=== PATIENT | male | born 1950 | race Caucasian/White ===

== ENCOUNTER → 2019-12-02 | Outpatient (CLI) | payer MEDICARE, SELFPAY ==
[2019-12-02 08:22] VITALS: BMI 30.4
[2019-12-02 12:42] LABS: Absolute Lymphocyte Count 1.74 X10^3/uL (0.83-4.51); Absolute Neutrophil Count 3.3 X10^3/uL (2.0-7.7); Basophil# 0.08 X10^3/uL; Basophil% 1.3 % (0-1); Eosinophil# 0.31 X10^3/uL; Eosinophils% 5.2 % (0-5); Hematocrit 47.6 % (40-54); Hemoglobin 16.7 g/dL (13.0-16.5); Lymphocyte # 1.74 X10^3/ul (4.0); Lymphocyte % 29.3 % (19-41); Mean Corp Hgb Conc 35.1 g/dL (32-36); Mean Corpuscular Hgb 29.4 pg (27.0-32.0); Mean Corpuscular Volume 83.8 fL (80-94); Mean Platelet Vol. 9.8 fl (6.2-12.0); Monocyte% 8.4 % (0-10); NRBC Flagged by Analyzer 0 % (0-5); Neutrophil # 3.28 X10^3/uL (2.7-7.7); Neutrophil % 55.5 % (47-70); Platelet Count 207 K/mm3 (150-450); RBC Distribution Width CV 12.2 % (11.6-14.6); RBC Distribution Width SD 37.2 fl (35.1-43.9); Red Blood Count 5.68 M/mm3 (4.6-6.2); White Blood Count 5.9 K/mm3 (4.4-11.0)
[2019-12-02 13:15] LABS: ALB/GLOB Ratio 1.3 RATIO (0.9-2.4); AST(SGOT) 20 U/L (15-37); Alanine Aminotransfer ALT/SGPT 25 U/L (16-61); Albumin, Serum 4.4 g/dL (3.2-5.0); Alkaline Phosphatase 60 U/L (45-117); Anion Gap 7 (5-15); BUN 15 mg/dL (7-18); BUN/Creat Ratio 18.3 RATIO (10-20); Calcium,Total 9.1 mg/dL (8.5-10.1); Chloride 105 mmol/L (98-107); Cholesterol 189 mg/dL (200); Creatinine, Serum 0.82 mg/dL (0.70-1.30); EST Glomerular Filtration Rate 100 mL/min (>60); Est Glom Filt Rate - Afr Amer 121 mL/min (>60); Globulin 3.5 g/dL (2.2-4.2); Glucose 95 mg/dL (74-106); High Density Lipoprotein 38 mg/dL; Potassium 3.8 mmol/L (3.5-5.1); Protein, Total 7.9 g/dL (6.4-8.2); Sodium Level 140 mmol/L (136-145); Triglycerides 81 mg/dL; Very Low Density Lipoprotein 16 mg/dL (5-40)
== END | disposition home or self-care (01) ==
LOC: BIMLAB 09:36
PROVIDERS: PCP Internal Medicine; Referring Provider Internal Medicine; Visit Provider Internal Medicine
DX: I10 Essential (primary) hypertension (principal)
CPT/HCPCS: 36415; 80053; 80061; 85025

== ENCOUNTER 2020-03-25 19:17 | Emergency (ER) | payer MEDICARE, SELFPAY ==
[2019-12-02 08:22] VITALS: BMI 30.4
[2020-03-25 19:18] VITALS: BP 169/103; PULSE 87; RESP 16; TEMP 36.3; O2SAT 97; BMI 30.1
[2020-03-25 19:34] VITALS: BP 178/83; PULSE 77; RESP 16; O2SAT 95
--- NOTE | 2020-03-25 20:29 | ED.VIS.GEN ---
History of Present Illness Chief Complaint: Hypertension Informant: Patient Narrative: 69-year-old male presents for evaluation of hypertension. Patient states that he got up today with his normal routine. He states that his body felt like it was under pressure. He took his blood pressure pills and his blood pressure is elevated. A couple hours later is even more elevated. He tells me that the past couple nights he has had grandchildren over. Last night he had pepperoni pizza on tortillas, sauerkraut, mashed potatoes, processed turkey sandwich, and other foods. He states that it is a bit out of ordinary for him to eat as salty foods. He states he takes hydrochlorothiazide, amlodipine, and lisinopril for hypertension. He is a patient of Dr. Miller's. He denies any chest pain, neurologic symptoms, dyspnea. - Past Medical History (1) Hypertension Status: Chronic (2) Arthritis Status: Chronic (3) GERD (gastroesophageal reflux disease) Status: Chronic Past Medical History - Allergies and Home Meds Allergies/Adverse Reactions: Allergies No Known Allergies Allergy (Verified 03/25/20 19:20) Primary Care Physician: Jaky Cheng MD [Primary Care Provider] - 3-5 Days if not improving Surgical History: no surgical history Lives: Spouse/ Significant Other Smoking Status: Never smoker Drugs: None Physical Exam Vital Signs/Narrative: Vital Signs Temp Pulse Resp BP Pulse Ox 03/25/20 19:34 77 16 178/83 H 95 03/25/20 19:18 97.4 F L 87 16 169/103 H 97 Inital Vital Signs reviewed: Yes General: Well nourished, Well developed, No Acute Distress Head: Normocephalic, Atraumatic Eyes: Perrl, EOMI ENT: Moist mucous membranes, No rhinorrhea Neck: Supple, Nontender Cardiovascular: Regular rate, Regular rhythm, No murmurs Respiratory: No distress, CTA bilaterally, Chest nontender Abdomen: Soft, Nontender, Nondistended, Normal bowel sounds Back: Nontender, Normal Inspection Extremities: Nontender, No edema Skin: Normal color, No rash Neurological: Alert, Oriented x3, Cranial nerves II-XII grossly intact, Normal Strength, Normal Sensation Psychological: Normal affect, Normal Mood Diagnostic/Tx/Re-eval - Medical Decision Making Mannual blood pressure is 165/89 Advised the patient he could take either an extra dose of his hydrochlorothiazide tonight or 1/2 of his amlodipine. The downside to hydrochlorothiazide is that he would probably urinate more during the night. I suspect that this is a transient hypotension most likely due to the increased salt in his diet over the past couple days. I do not believe he needs admission or emergent reduction of his pressure. ED Disposition - Plan for ED Patient: Disposition: Home or Assisted Living Diagnosis: Hypertension Instructions: ED Hypertension, Established, ED High Blood Pressure ... Referrals: Jaky Cheng MD [Primary Care Provider] - 3-5 Days if not improving
[2020-03-25 20:40] VITALS: BP 165/89; PULSE 68; RESP 16
== END 2020-03-25 20:41 | disposition home or self-care (01) ==
PROVIDERS: Emergency Provider Emergency Medicine; PCP Internal Medicine
DX: I10 Essential (primary) hypertension (principal); K21.9 Gastro-esophageal reflux disease without esophagitis; M19.90 Unspecified osteoarthritis, unspecified site; Z79.899 Other long term (current) drug therapy
CPT/HCPCS: 99282

== ENCOUNTER → 2020-05-22 09:45 | Outpatient (CLI) | payer MEDICARE, SELFPAY ==
[2020-05-20 08:50] VITALS: BMI 29.8
--- NOTE | 2020-05-22 09:48 | RAD_ITS ---
STUDY: X-RAY - UNILATERAL RIBS ( LEFT ) WITH CHEST REASON FOR EXAM: Male, 69 years old. fall, left rib pain-fell about a week and a half ago-left lateral pain TECHNIQUE - RIBS: 5 view(s) of the ribs. TECHNIQUE - CHEST: Single PA view of the chest. COMPARISON: 04/15/2017. FINDINGS: Cardiac silhouette unremarkable. Pulmonary vascularity unremarkable. Ectatic aorta. No focal patchy airspace opacities. No pleural effusions. Surgical clips at the left upper abdomen. No pneumothorax. Acute mildly displaced left-sided fifth, sixth, seventh rib fractures. RAD/Ribs Uni Min 3V w/PA Chest IMPRESSION: Acute minimally displaced left-sided rib fractures, as above No acute cardiopulmonary findings Ectatic aorta Electronically Signed: Kendrick Roque DO at 10:55 EST Tel , Service support ,
== END ==
PROVIDERS: PCP Internal Medicine; Referring Provider Nurse Practitioner Family; Visit Provider Nurse Practitioner Family
DX: R07.81 Pleurodynia (principal)
CPT/HCPCS: 71101

== ENCOUNTER → 2020-11-30 09:04 | Outpatient (CLI) | payer MEDICARE, SELFPAY ==
[2020-11-30 12:05] LABS: Absolute Neutrophil Count 2.1 X10^3/uL (2.0-7.7); Basophil# 0.05 X10^3/uL; Basophil% 1.1 % (0-1); Eosinophil# 0.19 X10^3/uL; Eosinophils% 4.2 % (0-5); Hematocrit 46.8 % (40-54); Hemoglobin 16.2 g/dL (13.0-16.5); Lymphocyte % 37.5 % (19-41); Mean Corp Hgb Conc 34.6 g/dL (32-36); Mean Corpuscular Hgb 29.6 pg (27.0-32.0); Mean Corpuscular Volume 85.6 fL (80-94); Mean Platelet Vol. 10.2 fl (6.2-12.0); Monocyte# 0.44 X10^3/uL; Monocyte% 9.7 % (0-10); NRBC Flagged by Analyzer 0 % (0-5); Neutrophil # 2.14 X10^3/uL (2.7-7.7); Neutrophil % 47.3 % (47-70); Platelet Count 199 K/mm3 (150-450); RBC Distribution Width CV 12.1 % (11.6-14.6); RBC Distribution Width SD 38.1 fl (35.1-43.9); Red Blood Count 5.47 M/mm3 (4.6-6.2); White Blood Count 4.5 K/mm3 (4.4-11.0)
[2020-11-30 12:30] LABS: AST(SGOT) 22 U/L (15-37); Alanine Aminotransfer ALT/SGPT 32 U/L (16-61); Albumin, Serum 3.9 g/dL (3.2-5.0); Alkaline Phosphatase 61 U/L (45-117); Anion Gap 4 (5-15); BUN 12 mg/dL (7-18); BUN/Creat Ratio 16.2 RATIO (10-20); Calcium,Total 8.7 mg/dL (8.5-10.1); Chloride 104 mmol/L (98-107); Cholesterol 192 mg/dL (200); Creatinine, Serum 0.74 mg/dL (0.70-1.30); EST Glomerular Filtration Rate 111 mL/min (>60); Est Glom Filt Rate - Afr Amer 135 mL/min (>60); Globulin 3.8 g/dL (2.2-4.2); Glucose 98 mg/dL (74-106); High Density Lipoprotein 40 mg/dL; PSA,Total - Annual Screen 1.25 ng/mL (0.00-4.00); Potassium 3.8 mmol/L (3.5-5.1); Protein, Total 7.7 g/dL (6.4-8.2); Sodium Level 138 mmol/L (136-145); Thyroid Stim Hormone (TSH) 1.42 uIU/mL (0.358-3.74); Triglycerides 71 mg/dL; Very Low Density Lipoprotein 14 mg/dL (5-40)
== END ==
PROVIDERS: PCP Internal Medicine; Referring Provider Internal Medicine; Visit Provider Internal Medicine
DX: E55.9 Vitamin D deficiency, unspecified (principal); I10 Essential (primary) hypertension; K21.9 Gastro-esophageal reflux disease without esophagitis; Z12.5 Encounter for screening for malignant neoplasm of prostate
CPT/HCPCS: 36415; 80053; 80061; 82306; 84153; 84443; 85025; G0103

== ENCOUNTER 2021-03-26 14:52 | Outpatient (CLI) | payer MEDICARE, SELFPAY | END 2021-03-26 23:59 | disposition short-term general hospital (02) | LOC: LABSPEC 14:53 | PROVIDERS: PCP Internal Medicine; Referring Provider Physician Assistant; Visit Provider Physician Assistant | DX: U07.1 COVID-19 (principal) | CPT/HCPCS: 87070; 87077; 87635; U0003; U0005 ==

== ENCOUNTER 2021-04-19 13:52 | Emergency (ER) | payer MEDICARE, SELFPAY ==
[2021-04-19 13:53] VITALS: BP 163/99; PULSE 88; RESP 18; TEMP 36.5; O2SAT 97; BMI 30.8
--- NOTE | 2021-04-19 14:08 | EKG12_ITS ---
Test Reason : CP Blood Pressure : / mmHG Vent. Rate : 088 BPM Atrial Rate : 088 BPM P-R Int : 154 ms QRS Dur : 070 ms QT Int : 362 ms P-R-T Axes : 021 -11 011 degrees QTc Int : 438 ms Normal sinus rhythm Low voltage QRS Borderline ECG Confirmed by JAMIE AGRAWAL, BA ([id number]), supervising editor news reel MATTIE SPANGLER ([id number]) on 04/23/2021 10:52:12 AM Referred By: TL Confirmed By:BA AYALA MD
--- NOTE | 2021-04-19 14:10 | ED.VIS.CHEST ---
HPI History of Present Illness Chief Complaint: Chest Pain Onset/Context/Timing Onset: Days (4) Activity at onset: gradual Timing: Intermittent (But constant since yesterday) Quality: Positive for - (Cramping) Location: Left Chest Worsened By: Nothing Relieved By: Nothing Associated Symptoms: Negative for Nausea, Vomiting, Diaphoresis, Dyspnea, Cough, Fever, Lightheadedness, Acid Reflux and Palpitations Narrative Narrative: Patient presents with chest pain that has been intermittent over the last 4 days. Patient states it has been constant over the past couple days. Patient describes it as cramping pain in the left upper chest. Patient states it feels like it is inside his chest. Patient states nothing makes it worse and nothing makes it better. Patient denies any nausea or vomiting. Patient denies any diaphoresis. Patient denies any shortness of breath or cough. Patient denies any palpitations. CVD Risk Factors: Positive for Hypertension; Negative for Diabetes, Hypercholesterolemia, Family History 1' </=55 and Smoking PE Risk Factors: Negative for Recent Travel/Surgery, Recent Immobilization, Prior DVT or PE, Cancer and OCP + Smoking + >/=35 PFSH PFSH Medical History Arthritis Essential hypertension Irritation of right eye Home Medications ascorbic acid (vitamin C) 1,000 mg tablet 2 g PO DAILY tab 06/01/20 [History Last Taken Unknown] multivitamin,qg-gmxh-biqxbktm 1 tab PO DAILY 06/01/20 [History Last Taken Unknown] amlodipine 10 mg tablet 10 mg PO DAILY #90 tab 10/31/20 [Rx Last Taken Unknown] tumeric 100 mg-ximena 150 mg-olive 50 mg-oreg 150 mg-caprylate capsule 1 cap PO DAILY 10/31/20 [History Last Taken Unknown] hydrochlorothiazide 25 mg tablet 12.5 mg PO DAILY #90 tab 12/18/20 [Rx Last Taken Unknown] lisinopril 40 mg tablet 40 mg PO DAILY #90 tab 12/18/20 [Rx Last Taken Unknown] zinc 10 mg PO DAILY 04/19/21 [History Last Taken Unknown] Allergy/AdvReac Type Severity Reaction Status Date / Time No Known Allergies Allergy Verified 04/19/21 13:59 Family History Other CVA (cerebral vascular accident) Diabetes Hypertension Surgical History Cholecystectomy planned History of ankle surgery History of appendectomy Social History Smoking Status: Never smoker alcohol intake: never substance use type: does not use what type of physical activity do you participate in: weight training and other details: active lifestyle frequency: daily ROS ROS ED Constitutional Constitutional ED: Denies chills or fever(s) Eyes Eyes: Denies blurry vision or change in vision ENT ENT ED: Denies rhinorrhea or sore throat Cardiovascular Cardiovascular: Reports chest pain; Denies palpitations Respiratory/Chest Respiratory/Chest: Denies cough or dyspnea Gastrointestinal Gastrointestinal: Denies abdominal pain, nausea or vomiting Genitourinary Genitourinary ED: Denies dysuria or hematuria Musculoskeletal Musculoskeletal: Reports neck pain; Denies back pain Integumentary Denies abscess or rash Neurologic Neurologic: Denies headache(s) or weakness Allergic/Immunologic Allergic/Immunologic ED: Denies mouth swelling or urticaria EXAM Physical Exam Const Vital Signs: 04/19/21 13:53 04/19/21 13:57 04/19/21 14:11 Temperature 97.7 F L Temperature Source Temporal Pulse Rate 88 Respiratory Rate 18 Respiratory Effort Normal Non-Labored Respiratory Pattern Normal Blood Pressure 163/99 H Blood Pressure Mean 120 Pulse Ox 97 99 Oxygen Delivery Method Room Air Room Air Positive well nourished and well developed General Appearance ED: well developed HEENT normocephalic and atraumatic Eyes PERRL and EOMs intact bilaterally Neck supple and no JVD Chest Wall palpation of chest normal Resp normal respiratory effort and clear to auscultation bilaterally Effort and Inspection: Negative for respiratory distress Cardio regular rate, regular rhythm and no murmurs GI normal to inspection, nondistended, normoactive bowel sounds, soft to palpation, non-tender and non-distended Extremity normal to inspection General Extremety ED: Negative for edema or tenderness General Extremity: Negative for edema Neuro oriented x3, CN's II-XII intact bilaterally and no sensory deficits noted Sensorium / Orientation: awake and alert Motor Exam: strength 5/5 throughout Psych mental status grossly normal Heart Score History: Slightly/Non-Suspicious ECG: Normal Age: >/= 65 years Risk Factors: 1 or 2 Risk Factors Troponin: </= Normal Limit Score: 3 MDM MDM MDM Narrative Medical decision making narrative: EKG was obtained. On my interpretation, it showed a normal sinus rhythm with a rate of 88. WI interval, QRS interval, and QTc intervals were all normal. [place] was normal. There are no acute ST or T wave changes. Portable 1 view chest x-ray was obtained. On my interpretation, lung whitaker are clear. There is normal cardiac silhouette. Bony thorax is normal. There is no acute process noted. Radiologist also interpreted the x-ray and agrees. CBC was within normal limits. D-dimer was normal. Basic metabolic profile was within normal limits. Initial high-sensitivity troponin was normal at 6. 2-hour repeat troponin was obtained that was normal at 7. Patient has a HEART score of 3. Patient was advised that this is low risk for acute cardiac event. Patient was instructed to follow-up with his primary care physician in 3 to 5 days for further evaluation. Patient understood and was agreeable with plan. All questions were answered. Lab Data Attestation: I reviewed the patient's lab results. Labs: Laboratory Results - last 24 hr 04/19/21 04/19/21 04/19/21 13:55 13:55 13:55 WBC 7.7 RBC 5.93 Hgb 17.3 H Hct 49.4 MCV 83.3 MCH 29.2 MCHC 35.0 RDW Std Deviation 38.4 RDW Coeff of Gerardo 12.6 Plt Count 220 MPV 9.5 Immature Gran % (Auto) 0.300 Neut % (Auto) 60.5 Lymph % (Auto) 29.1 [place] % (Auto) 8.0 Eos % (Auto) 1.3 Baso % (Auto) 0.8 Absolute Neuts (auto) 4.7 Absolute Lymphs (auto) 2.23 Nucleated RBC % 0 D-Dimer Quant (PE/DVT) 0.34 Sodium 138 Potassium 3.5 Chloride 103 Carbon Dioxide 29.0 Anion Gap 6 BUN 11 Creatinine 0.88 Estim Creat Clear Calc 90.80 Est GFR (MDRD) Af Amer 111 Est GFR (MDRD) Non-Af 92 BUN/Creatinine Ratio 12.5 Glucose 96 Calcium 9.1 Troponin I High Sens 6 04/19/21 15:55 WBC RBC Hgb Hct MCV MCH MCHC RDW Std Deviation RDW Coeff of Gerardo Plt Count MPV Immature Gran % (Auto) Neut % (Auto) Lymph % (Auto) [place] % (Auto) Eos % (Auto) Baso % (Auto) Absolute Neuts (auto) Absolute Lymphs (auto) Nucleated RBC % D-Dimer Quant (PE/DVT) Sodium Potassium Chloride Carbon Dioxide Anion Gap BUN Creatinine Estim Creat Clear Calc Est GFR (MDRD) Af Amer Est GFR (MDRD) Non-Af BUN/Creatinine Ratio Glucose Calcium Troponin I High Sens 7 Radiography Chest X-Ray - ED: 1 View, Read by ED Physician, Read by Radiologist and Normal Diagnostic Testing: Clinical Impression(s) from Imaging Studies Chest X-Ray 04/19/21 14:25 IMPRESSION: No acute abnormality is seen. Electronically Signed: Jon Sutherland MD at 14:37 EST , EKG Initial EKG: Attestation: I personally reviewed and interpreted this EKG as follows: Interpretation: Sinus Rhythm (88) and No Acute Injury Pattern Prior EKG tracings: available for review Prior: Unchanged (04/15/2017) Discharge Plan Triage Chief Complaint: Chest Pain ED Provider: Kendrick Matt Dx/Rx/DC Orders Clinical Impression: Chest pain of uncertain etiology Instructions: ED Chest Pain, Uncertain Cause Prescriptions: No Action multivitamin,cj-zmxn-gjwfrjkb tablet 1 tab PO DAILY RF: 0 ascorbic acid (vitamin C) 1,000 mg tablet 2 g PO DAILY RF: 0 hmhdsxt-kpoz-ndxbk-oreg-capryl 100 mg-150 mg- 50 mg-150 mg capsule 1 cap PO DAILY RF: 0 zinc 10 mg Tablet 10 mg PO DAILY RF: 0 amlodipine 10 mg tablet 10 mg PO DAILY Qty: 90 RF: 1 lisinopril 40 mg tablet 40 mg PO DAILY Qty: 90 RF: 3 hydrochlorothiazide 25 mg tablet 12.5 mg PO DAILY Qty: 90 RF: 1 Primary Care Provider: Jaky Cheng Referrals: Jaky Cheng MD [Primary Care Provider] - 3-5 Days Disposition Disposition: Home, Self Care
[2021-04-19 14:11] VITALS: O2SAT 99
[2021-04-19 14:17] LABS: Absolute Lymphocyte Count 2.23 X10^3/uL (0.83-4.51); Absolute Neutrophil Count 4.7 X10^3/uL (2.0-7.7); Basophil# 0.06 X10^3/uL; Basophil% 0.8 % (0-1); Eosinophils% 1.3 % (0-5); Hematocrit 49.4 % (40-54); Hemoglobin 17.3 g/dL (13.0-16.5); Lymphocyte # 2.23 X10^3/ul (0.83-4.51); Lymphocyte % 29.1 % (19-41); Mean Corpuscular Hgb 29.2 pg (27.0-32.0); Mean Corpuscular Volume 83.3 fL (80-94); Mean Platelet Vol. 9.5 fl (6.2-12.0); Monocyte# 0.61 X10^3/uL; NRBC Flagged by Analyzer 0 % (0-5); Neutrophil # 4.65 X10^3/uL (2.7-7.7); Neutrophil % 60.5 % (47-70); Platelet Count 220 K/mm3 (150-450); RBC Distribution Width CV 12.6 % (11.6-14.6); RBC Distribution Width SD 38.4 fl (35.1-43.9); Red Blood Count 5.93 M/mm3 (4.6-6.2); White Blood Count 7.7 K/mm3 (4.4-11.0)
[2021-04-19] MEDS: Aspirin 81 MG TAB.CHEW 324 MG PO (14:18)
[2021-04-19 14:25] LABS: D-Dimer Quantitative (DVT/PE) 0.34 FEU/ug/m (0.27-0.49)
--- NOTE | 2021-04-19 14:25 | RAD_ITS ---
STUDY: X-RAY CHEST REASON FOR EXAM: Male, 70 years old. Chest pain TECHNIQUE: Single AP portable view of the chest. COMPARISON: Comparison is made with prior study 05/22/2020. FINDINGS: EKG electrodes are seen. Stable mild elevation of the right hemidiaphragm. Hyperinflation. There is no demonstrated pleural abnormality. Normal size heart. Normal mediastinum and ifeoma. Normal visualized pulmonary arteries. There is atherosclerotic tortuosity of the aortic arch and descending thoracic aorta. Normal visualized thoracic spine. Healed left-sided rib fractures. Surgical clips are seen overlying the lower anterior thorax. There is no demonstrated abnormality of the visualized soft tissue structures of the upper abdomen. RAD/Chest 1 View (Portable) IMPRESSION: No acute abnormality is seen. Electronically Signed: Jon Sutherland MD at 14:37 EST ,
[2021-04-19 14:36] LABS: Anion Gap 6 (5-15); BUN 11 mg/dL (7-18); BUN/Creat Ratio 12.5 RATIO (10-20); Calcium,Total 9.1 mg/dL (8.5-10.1); Chloride 103 mmol/L (98-107); Creatinine, Serum 0.88 mg/dL (0.70-1.30); EST Glomerular Filtration Rate 92 mL/min (>60); Est Glom Filt Rate - Afr Amer 111 mL/min (>60); Glucose 96 mg/dL (74-106); Potassium 3.5 mmol/L (3.5-5.1); Sodium Level 138 mmol/L (136-145); Troponin-I HS 6 pg/mL (3.0-78.0)
[2021-04-19 16:46] LABS: Troponin-I HS 7 pg/mL (3.0-78.0)
[2021-04-19 17:05] VITALS: BP 144/78; PULSE 72; PULSE 88; RESP 19; O2SAT 99
== END 2021-04-19 17:06 | disposition home or self-care (01) ==
PROVIDERS: Emergency Provider Emergency Medicine; PCP Internal Medicine; Visit Provider Emergency Medicine
DX: R07.9 Chest pain, unspecified (principal); I10 Essential (primary) hypertension; M19.90 Unspecified osteoarthritis, unspecified site; Z79.899 Other long term (current) drug therapy
CPT/HCPCS: 71045; 80048; 84484; 85025; 85379; 93005; 99285; A4216

== ENCOUNTER 2021-05-02 06:02 | Outpatient (CLI) | payer MEDICARE, SELFPAY ==
--- NOTE | 2021-05-02 09:21 | STRESSREP_ITS ---
Stress Test Report Date: 05-02-2021 Procedure: Exercise tolerance test/imaging study Indications: Chest pain; history of COVID-19 Consent: Per the patient Procedure: The patient exercised on a Jesse protocol for 8 minutes completing Stage II and 2 minutes of Stage III achieving a peak heart rate of 140s bpm (94% predicted maximal heart rate) with a peak blood pressure 172/76 mmHg and a peak MET capacity of 10 METs. The baseline ECG demonstrated normal sinus rhythm. The peak exercise ECG demonstrated somatic/motion artifact with no obvious ECG changes. There were no cardiac dysrhythmias pretest, during exercise, or recovery. The functional capacity was considered good. There was no complaint of chest discomfort during exercise or recovery. The examination was discontinued secondary to dyspnea. Impression: 1. Technically adequate (percent predicted maximal heart rate greater than 85%) exercise tolerance test 2. Peak exercise ECG somatic/motion artifact with no obvious ECG changes 3. There were no cardiac dysrhythmias pretest, during exercise, or recovery 4. Nuclear images pending Myocardial perfusion imaging study: Technique: The patient was injected with 14.8 mCi of technetium 99m Cardiolite and subsequently rest SPECT Cardiolite nuclear imaging was obtained in the horizontal long, vertical long, and short axis views. The patient exercised on a Jesse protocol for 8 minutes completing Stage II and 2 minutes of Stage III achieving a peak heart rate of 140s bpm (94% predicted maximal heart rate) with a peak blood pressure 172/76 mmHg and a peak MET capacity of 10 METs. The patient was injected with 44.7 mCi of technetium 99m Cardiolite and subsequently stress SPECT Cardiolite nuclear imaging was obtained in the horizontal long, vertical long, and short axis views. A gated Cardiolite study at peak stress was obtained. Interpretation: Rest and stress SPECT Cardiolite nuclear imaging status post realignment, keenan lization, and attenuation correction, demonstrates the appearance of body motion during image acquisition and otherwise relative uniform tracer uptake and myocardial perfusion appearing within normal limits. There is end systolic thickening and brightening. The gated Cardiolite study demonstrates myocardial thickening and inward wall motion. The reported LVEF is 68%. Impression: 1. Rest and stress SPECT Cardiolite nuclear imaging demonstrate relative uniform tracer uptake and myocardial perfusion appearing within normal limits. 2. The gated Cardiolite study reports an LVEF of 68%. This note was generated with [employer] software. It may contain incorrect words, spelling, and punctuation that were not noted in checking the note before signing.
== END 2021-05-02 23:59 | disposition home or self-care (01) ==
PROVIDERS: PCP Internal Medicine; Referring Provider Internal Medicine; Visit Provider Internal Medicine
DX: R07.89 Other chest pain (principal)
CPT/HCPCS: 78452; 93017; A9500; A4216

== ENCOUNTER → 2022-03-04 | Outpatient (CLI) | payer MEDICARE, SELFPAY ==
--- NOTE | 2022-03-04 09:30 | RAD_ITS ---
EXAM: XR LUMBOSACRAL SPINE, 2 OR 3 VIEWS CLINICAL INDICATION: Low back pain TECHNIQUE: Frontal and lateral views of the lumbar spine and sacrum. This report was created using [employer] report generation technology. COMPARISON: None. FINDINGS: VERTEBRAE: Grade 1-2 degenerative anterolisthesis of L4 relative to L5; there is severe facet arthrosis at this level. Preserved vertebral body height. No fracture. No other spondylolisthesis. Preservation of the normal lumbar lordosis. DISC SPACES: Mild degenerative disc disease at L5-S1. GASTROINTESTINAL TRACT: Unremarkable as visualized. Included bowel gas pattern is non-obstructive. RAD/Lumbar Spine 2 or 3 Views IMPRESSION: 1. Grade 1-2 degenerative anterolisthesis of L4 relative to L5. 2. No acute osseous abnormalities or other malalignment. Electronically Signed: John Bueno MD at 2:18 EST ,
[2022-03-04 10:32] LABS: Absolute Lymphocyte Count 1.87 X10^3/uL (0.83-4.51); Basophil# 0.06 X10^3/uL; Basophil% 1.1 % (0-1); Eosinophil# 0.21 X10^3/uL; Eosinophils% 3.7 % (0-5); Hematocrit 48.8 % (40-54); Hemoglobin 16.9 g/dL (13.0-16.5); Lymphocyte # 1.87 X10^3/ul (0.83-4.51); Mean Corp Hgb Conc 34.6 g/dL (32-36); Mean Corpuscular Hgb 29.5 pg (27.0-32.0); Mean Corpuscular Volume 85.3 fL (80-94); Mean Platelet Vol. 9.8 fl (6.2-12.0); Monocyte# 0.55 X10^3/uL; Monocyte% 9.7 % (0-10); NRBC Flagged by Analyzer 0 % (0-5); Neutrophil # 2.96 X10^3/uL (2.7-7.7); Neutrophil % 52.3 % (47-70); Platelet Count 230 K/mm3 (150-450); RBC Distribution Width CV 12.3 % (11.6-14.6); RBC Distribution Width SD 37.8 fl (35.1-43.9); Red Blood Count 5.72 M/mm3 (4.6-6.2); White Blood Count 5.7 K/mm3 (4.4-11.0)
[2022-03-04 10:59] LABS: Vitamin D,25 Hydroxy 51.4 ng/mL
[2022-03-04 11:09] LABS: ALB/GLOB Ratio 1.2 RATIO (0.9-2.4); AST(SGOT) 17 U/L (15-37); Alanine Aminotransfer ALT/SGPT 24 U/L (16-61); Albumin, Serum 4.2 g/dL (3.2-5.0); Alkaline Phosphatase 69 U/L (45-117); Anion Gap 3 (5-15); BUN 10 mg/dL (7-18); BUN/Creat Ratio 11.6 RATIO (10-20); Calcium,Total 9.4 mg/dL (8.5-10.1); Chloride 104 mmol/L (98-107); Cholesterol 173 mg/dL (200); Creatinine, Serum 0.86 mg/dL (0.70-1.30); EST Glomerular Filtration Rate 93 mL/min (>60); Est Glom Filt Rate - Afr Amer 113 mL/min (>60); Globulin 3.5 g/dL (2.2-4.2); Glucose 105 mg/dL (74-106); High Density Lipoprotein 41 mg/dL; Magnesium 2.6 mg/dL (1.6-2.6); PSA,Total - Annual Screen 1.34 ng/mL (0.00-4.00); Potassium 3.5 mmol/L (3.5-5.1); Protein, Total 7.7 g/dL (6.4-8.2); Sodium Level 140 mmol/L (136-145); Thyroid Stim Hormone (TSH) 1.47 uIU/mL (0.358-3.74); Triglycerides 94 mg/dL; Very Low Density Lipoprotein 19 mg/dL (5-40)
== END | disposition home or self-care (01) ==
PROVIDERS: PCP Internal Medicine; Referring Provider Internal Medicine; Visit Provider Internal Medicine
DX: I10 Essential (primary) hypertension (principal); Z12.5 Encounter for screening for malignant neoplasm of prostate; E55.9 Vitamin D deficiency, unspecified; M54.50 Low back pain, unspecified
CPT/HCPCS: 36415; 72100; 80053; 80061; 82306; 83735; 84153; 84443; 85025; G0103

== ENCOUNTER 2022-09-30 13:08 | Emergency (ER) | payer MEDICARE, SELFPAY ==
[2022-09-30 13:10] VITALS: BP 143/80; PULSE 66; RESP 16; TEMP 35.8; O2SAT 97; BMI 31.1
--- NOTE | 2022-09-30 13:30 | RAD_ITS ---
STUDY: X-RAY - UNILATERAL RIBS ( LEFT ) WITH CHEST REASON FOR EXAM: Male, 72 years old. Injury TECHNIQUE - RIBS: 4 view(s) of the ribs. TECHNIQUE - CHEST: Single PA view of the chest. COMPARISON: Comparison is made with prior chest radiograph dated October 17, 2021. FINDINGS - RIBS: Multiple healed left rib fractures. FINDINGS - CHEST: The lungs are clear and expanded. There is no demonstrated pleural abnormality. Normal size heart. Normal mediastinum and ifeoma. Normal visualized pulmonary arteries. There is atherosclerotic tortuosity of the aortic arch and descending thoracic aorta. There are degenerative changes of the visualized thoracic spine. Normal visualized ribs, clavicles, and shoulders. There is no demonstrated abnormality of the visualized soft tissue structures of the upper abdomen. RAD/Ribs Uni Min 3V w/PA Chest IMPRESSION: RIBS: Multiple healed left rib fractures. CHEST: Normal x-ray examination of the chest. Electronically Signed: Jon Sutherland MD at 14:12 EDT ,
--- NOTE | 2022-09-30 13:31 | EX.ED.GENINJ ---
HPI History of Present Illness Chief Complaint: Chest Other Informant: patient Narrative Narrative: Patient was weed eating on some large rocks outside of his property, he states that the weedeater became stuck, and then he lost his balance and fell against the rocks versus his left rib cage, has been having pain and trouble taking a deep breath without significant discomfort ever since. Hurts more to move. Not winded/out of breath. He also states that he scraped the left side of his knee but it is not bothering him and he did not know until he took his jeans off that was injured. No other injuries. [facility] Medical History (Updated 09/30/22 @ 15:[address] Sumit Granados MD) Arthritis Essential hypertension Irritation of right eye Schwannoma of nerve of chest Home Medications ascorbic acid (vitamin C) 1,000 mg tablet 2 g PO DAILY 06/01/20 [History Last Taken Unknown] multivitamin,yi-elga-kzruztor (Complete Multivitamin tablet) 1 tab PO DAILY 06/01/20 [History Last Taken Unknown] tumeric 100 mg-ximena 150 mg-olive 50 mg-oreg 150 mg-caprylate capsule 1 cap PO DAILY 10/31/20 [History Last Taken Unknown] zinc 10 mg tablet 10 mg PO DAILY 04/19/21 [History Last Taken Unknown] amlodipine 10 mg tablet 10 mg PO DAILY #90 tabs 11/05/21 [Rx Last Taken Unknown] hydrochlorothiazide 25 mg tablet 12.5 mg (1/2 x 25 mg) PO DAILY #90 tabs 12/25/21 [Rx Last Taken Unknown] lisinopril 40 mg tablet 40 mg PO DAILY #90 tabs 12/27/21 [Rx Last Taken Unknown] cholecalciferol (vitamin D3) 50 mcg (2,000 unit) capsule 50 mcg PO DAILY 03/04/22 [History Last Taken Unknown] hydrocodone-acetaminophen 5-325mg 5mg-325mg 1 tab PO Q4H PRN PRN Pain 4 days #20 TABLETS 09/30/22 [Rx Last Taken Unknown] Allergy/AdvReac Type Severity Reaction Status Date / Time No Known Allergies Allergy Verified 09/30/22 13:10 Family History Other CVA (cerebral vascular accident) Diabetes Hypertension Surgical History Cholecystectomy planned History of ankle surgery History of appendectomy Social History Smoking Status: Never smoker alcohol intake: never substance use type: does not use what type of physical activity do you participate in: weight training and other details: active lifestyle frequency: daily ROS ROS ED Cardiovascular Cardiovascular: Reports as per HPI and chest pain; Denies abdominal pain Respiratory/Chest Respiratory/Chest: Denies cough or dyspnea Gastrointestinal Gastrointestinal: Denies abdominal pain, nausea or vomiting Musculoskeletal Musculoskeletal: Denies back pain or neck pain Integumentary Reports Abrasions; Denies rash Neurologic Neurologic: Denies headache(s), paresthesias or weakness EXAM Physical Exam Const Vital Signs: 09/30/22 13:10 09/30/22 13:21 Temperature 96.5 F L Temperature Source Temporal Pulse Rate 66 Respiratory Rate 16 Respiratory Effort Normal Non-Labored Respiratory Pattern Normal Blood Pressure 143/80 H Blood Pressure Mean 101 Pulse Ox 97 Oxygen Delivery Method Room Air Positive well nourished and well developed General Appearance ED: well developed and NAD HEENT atraumatic; Negative for tenderness Eyes PERRL and EOMs intact bilaterally Neck full ROM Resp normal respiratory effort and clear to auscultation bilaterally Resp Narrative: Tender left lateral rib cage along the posterior axillary line approximately ribs 6 or 7 are both no crepitance or subcutaneous emphysema or flail. No obvious signs of trauma at the level of the skin. Cardio regular rhythm, S1 normal heart sound and no murmurs Rate: Negative for tachycardic Extremity normal to inspection and full ROM Extremity Narrative: Full range of motion left knee no effusion, no bony tenderness. Ligaments stable with short endpoints on stressing without pain. Neuro oriented x3, CN's II-XII intact bilaterally, moves all extremities, no focal motor deficits, no sensory deficits noted and gait normal Psych mental status grossly normal and thought process normal Skin Skin Narrative: Abrasion lateral left knee no bony tenderness, no other skin injury MDM MDM MDM Narrative Medical decision making narrative: I agree patient's knee injury is minor. We obtained x-rays of the left ribs and a PA of the chest, 5 views total my interpretation show no acute fracture or pneumothorax. Radiology in agreement seen old fractures which I confirmed with the patient probably were there. He is given a [place] here, he took Tylenol and ibuprofen earlier, in addition to a short prescription and close outpatient follow-up and we discussed reasons to return. Radiography Diagnostic Testing: Clinical Impression(s) from Imaging Studies Ribs w/Chest X-Ray 09/30/22 13:30 IMPRESSION: RIBS: Multiple healed left rib fractures. CHEST: Normal x-ray examination of the chest. Electronically Signed: Jon Sutherland MD at 14:12 EDT , Discharge Plan Triage Chief Complaint: Chest Other ED Provider: Sumit Granados Dx/Rx/DC Orders Clinical Impression: Chest wall injury Instructions: ED Rib Contusion or Minor Fracture Prescriptions: New hydrocodone-acetaminophen [hydrocodone-acetaminophen] 5-325 mg tablet 1 tab PO Q4H PRN PRN (Reason: Pain) 4 Days Qty: 20 0RF No Action multivitamin,ut-jiwx-twflsenl tablet 1 tab PO DAILY ascorbic acid (vitamin C) 1,000 mg tablet 2 g PO DAILY qchdljb-vuma-ehvyo-oreg-capryl 100 mg-150 mg- 50 mg-150 mg capsule 1 cap PO DAILY cholecalciferol (vitamin D3) 50 mcg (2,000 unit) capsule 50 mcg PO DAILY zinc 10 mg Tablet 10 mg PO DAILY amlodipine 10 mg tablet 10 mg PO DAILY Qty: 90 3RF hydrochlorothiazide 25 mg tablet 12.5 mg PO DAILY Qty: 90 1RF lisinopril 40 mg tablet 40 mg PO DAILY Qty: 90 3RF Primary Care Provider: Jaky Cheng Referrals: Jaky Cheng MD [Primary Care Provider] - 1 Week if not improving Disposition Disposition: Home, Self Care
[2022-09-30] MEDS: HYDROcodone Bitartrate/Apap 5/325 Tablet PO (16:04)
== END 2022-09-30 16:07 | disposition home or self-care (01) ==
PROVIDERS: Emergency Provider Emergency Medicine; PCP Internal Medicine; Visit Provider Emergency Medicine
DX: S29.009A Unspecified injury of muscle and tendon of unspecified wall of thorax, initial encounter (principal); I10 Essential (primary) hypertension; W19.XXXA Unspecified fall, initial encounter; Y93.H2 Activity, gardening and landscaping
CPT/HCPCS: 71101; 99283

== ENCOUNTER → 2023-03-20 | Outpatient (CLI) | payer MEDICARE, SELFPAY ==
--- OUTSIDE RECORDS SUMMARY | 2023-03-20 11:17 | XMS RPT_ITS | CCD ---
Author Name Unknown Address [address] [place] [address] Organization [facility] Care Team Providers Care Resident Engineer Name Role Phone WILTON MOHAN (HORSES OR MULES TEAMSTER) Unavailable Unavailabl e KRISTIN, DR BETTY Ponce Attending Unavaila ble KRISTIN, DR BETTY Ponce Primary Care Unavaila ble KRISTIN, DR BETTY Ponce Admitting Unavaila ble KRISTIN, DR BETTY Ponce Primary Care Unavaila ble KRISTIN, DR BETTY Ponce Admitting Unavaila ble KRISTIN, DR BETTY Ponce Attending Unavaila ble KRISTIN, DR BETTY Ponce Attending Unavaila ble KRISTIN, DR BETTY Ponce Primary Care Unavaila ble AMY LEVI Consulting Unavailable KRISTIN, DR BETTY Ponce Admitting Unavaila ble PROVIDER, UNKNOWN Consulting Unavailable Problems Problem Classification Problem Date Documented Da te Episodic/Chronic Abdominal pain (3 sources) Unspecified abdominal pain; Translations: [Unspecified abdominal pain] Onset: 03-15-2021 Episodic Other connective tissue disease (1 source) Myalgia, unspecified site; Translations: [Myalgia, unspecified site] Onset: 03-15-2021 Episodic Other gastrointestinal disorders (1 source) Diarrhea, unspecified; Translations: [Diarrhea, unspecified] Onset: 03-15-2021 Episodic Spondylosis; intervertebral disc disorders; other back problems (1 source) Pain in thoracic spine; Translations: [Pain in thoracic spine] Onset: 07-23-2017 Episodic Results Test Name Value Interpretation Reference Range Facil ity Encounters Encounter Date Encounter Type Care Provider Facility Start: 03-15-2021 End: 03-15-[address] BETTY [facility] Start: 06-12-2020 End: 06-12-[address] BETTY FOSTER [facility] Start: 05-18-2020 End: 05-18-[address] BETTY [facility] Start: 07-23-2017 Ambulatory WILTON (TOMMY) [facility] Payers Date Payer Category Payer Medicare [id number] 1950 Unknown [id number] 1950 Unknown [id number] 1950 Unknown [id number] Clinical Note 11-20-2020 Note Date & Type Note Facility 11-20-2020 Note Patient Outreach (NE TNAV) JOSE CARVAJAL ([id number]) 1950 M Date Time Provider Department 11/20/20 NICOLASA WORLEY During your visit today, we recorded the following information about you: Nicolasa Worley Population Health Navigator 11/20/2020 9:38 AM Signed POPULATION HEALTH NAVIGATION OUTREACH Action/ I left a voice message and a my chart message re: pcp No care everywhere Contact made with patient or family member? NO Pt identified by name and : NO Outreach Outcome/Action Unable to reach patient: Left message MyChart message sent Reason for Outreach Attribution: Provider Off-boarding Payer: Payor: MEDICARE / Plan: MEDICARE A AND B / Product Type: Medicare / Care Gap Reviewed:: Reminder: Reminder note to check Health Maintenance for items below Health Maintenance items due: DEPRESSION SCREENING Never done COVID-19 VACCINE(1) Never done HEPATITIS C SCREENING Never done BP CONTROLLED (<130/80) Never done SHINGRIX VACCINE(2 of 3) due on 02/28/2014 DTAP,TDAP,TD(2 - Td or Tdap) due on 09/01/2016 ADVANCE DIRECTIVE DISCUSSION Never done PNEUMOVAX AGE 65 AND OVER WITH 5YR LOOKBACK(1) Never done ANNUAL PCP TEAM CHRONIC DISEASE VISIT due on 07/23/2018 PROSTATE CANCER SCREENING DISCUSSION due on 02/02/2020 DIABETES SCREEN due on 07/23/2020 Advanced Directives Completed: Have you ever planned for future healthcare decisions with a power of banking attorney, living will, or advance directives? No. Please bring a copy to your next appointment or email to Referrals: N/A Message Sent to Practice: NO Navigation Signature: Nicolasa Worley Population Health Navigator November 20, 2020 9:38 AM Allergies As of Date: 11/20/2020 (No Known Allergies) Date Reviewed: 03/16/2019 Reviewed by: Christie Banda Ma - Fully Assessed Reason for Visit: Population Health Navigation Outreach [3910] Cmt: offboarding Prescriptions as of 11/20/2020 - aspirin 81 mg chewable tablet Take 81 mg by mouth once daily. - amLODIPine (NORVASC) 10 mg tablet TAKE ONE TABLET BY MOUTH ONCE DAILY - hydroCHLOROthiazide (HYDRODIURIL, ESIDRIX) 25 mg tablet Take 1 tablet by mouth once daily. - lisinopril (ZESTRIL, PRINIVIL) 40 mg tablet Take 1 tablet by mouth once daily. Problem List As Of Date 11/20/2020 Noted Resolved ESOPHAGEAL REFLUX [K21.9] 05/16/2005 Calculus of gallbladder with other cholecystiti*06/12/2005 08/01/2014 Esophagitis [K20.90] 06/20/2005 Acute gastritis without mention of hemorrhage [*06/20/2005 08/01/2014 DIAPHRAGMATIC HERNIA [K44.9] 06/20/2005 Essential hypertension, benign [I10] 11/11/2011 Melanocytic nevi of face [D22.30] 07/27/2012 08/01/2014 Intradermal melanocytic nevus [D22.9] 07/27/2012 08/01/2014 Other seborrheic keratosis [L82.1] 07/27/2012 08/01/2014 Solar lentigo [L81.4] 07/27/2012 08/01/2014 Milial cyst [L72.0] 07/27/2012 08/01/2014 Comedone [L70.0] 07/27/2012 08/01/2014 Sebaceous hyperplasia of face [L73.8] 07/27/2012 08/01/2014 Melanocytic Nevus of face: Intradermal type nev*11/05/2012 08/01/2014 Aortic root dilation (HCC) [I77.810] 07/23/2017 Atherosclerosis of aorta (HCC) [I70.0] 07/23/2017 Encounter Status:Closed by MEIR POPULATION HEALTH NAVIGATOR, NICOLASA Cardona on 11/20/20 [facility] Progress note 11-20-2020 Note Date & Type Note Facility 11-20-2020 Note HNO ID: [id number] Author: Nicolasa Worley Population Health Navigator Service: ? Author Type: ? Type: Progress Notes Filed: 11/20/2020 9:38 AM Note Text: POPULATION HEALTH NAVIGATION OUTREACH Action/FYI I left a voice message and a my chart message re: pcp No care everywhere Contact made with patient or family member? NO Pt identified by name and : NO Outreach Outcome/Action Unable to reach patient: Left message [employer] message sent Reason for Outreach Attribution: Provider Off-boarding Payer: Payor: MEDICARE / Plan: MEDICARE A AND B / Product Type: Medicare / Care Gap Reviewed:: Reminder: Reminder note to check Health Maintenance for items below Health Maintenance items due: DEPRESSION SCREENING Never done COVID-19 VACCINE(1) Never done HEPATITIS C SCREENING Never done BP CONTROLLED (<130/80) Never done SHINGRIX VACCINE(2 of 3) due on 02/28/2014 DTAP,TDAP,TD(2 - Td or Tdap) due on 09/01/2016 ADVANCE DIRECTIVE DISCUSSION Never done PNEUMOVAX AGE 65 AND OVER WITH 5YR LOOKBACK(1) Never done ANNUAL PCP TEAM CHRONIC DISEASE VISIT due on 07/23/2018 PROSTATE CANCER SCREENING DISCUSSION due on 02/02/2020 DIABETES SCREEN due on 07/23/2020 Advanced Directives Completed: Have you ever planned for future healthcare decisions with a power of banking attorney, living will, or advance directives? No. Please bring a copy to your next appointment or email to Referrals: N/A Message Sent to Practice: NO Navigation Signature: Nicolasa Cardona Meir Population Health Navigator November 20, 2020 9:38 AM [facility] Summary Purpose Family History No Family History Records FoundNo Family History Records FoundNo Family History Records FoundNo Family History Records Found Advance Directives No Advanced Directives Records FoundNo Advanced Directives Records FoundNo Advanced Directives Records FoundNo Advanced Directives Records Found Additional Source Comments (unrecognized sect ion and content) No Status Records FoundNo Status Records FoundNo Status Records FoundNo Status Records Found INFORMATION SOURCE (unrecogn ized section and content) DATE CREATED AUTHOR AUTHOR'S ORGANIZ ATION 02/14/2020 [facility] DATE CREATED AUTHOR AUTHOR'S ORGANIZ ATION 03/20/2021 [facility] DATE CREATED AUTHOR AUTHOR'S ORGANIZ ATION 05/04/2021 [facility] FOR RECORDS PERTAINING TO PATIENTS WHO ARE OR HAVE BEEN ENROLLED IN A CHEMICAL DEPENDENCY/SUBSTANCEABUSE PROGRAM, SOME INFORMATION MAY BE OMITTED. This clinical summary was aggregated from multiple sources. Caution should be exercised in using it in the provision of clinical care. This summary normalizes information from multiple sources, and as a consequence, information in this document may materially change the coding, format and clinical context of patient data. In addition, data may be omitted in some cases. CLINICAL DECISIONS SHOULD BE BASED ON THE PRIMARY CLINICAL RECORDS. [employer] provides no warranty or guarantee of the accuracy or completeness of information in this document.
[2023-03-20 12:04] LABS: Absolute Lymphocyte Count 1.59 X10^3/uL (0.83-4.51); Basophil# 0.06 X10^3/uL; Basophil% 1.4 % (0-1); Eosinophil# 0.14 X10^3/uL; Eosinophils% 3.3 % (0-5); Hematocrit 47.1 % (40-54); Hemoglobin 16.3 g/dL (13.0-16.5); Lymphocyte # 1.59 X10^3/ul (0.83-4.51); Lymphocyte % 37.9 % (19-41); Mean Corp Hgb Conc 34.6 g/dL (32-36); Mean Corpuscular Hgb 29.4 pg (27.0-32.0); Mean Corpuscular Volume 84.9 fL (80-94); Mean Platelet Vol. 9.9 fl (6.2-12.0); Monocyte# 0.37 X10^3/uL; Monocyte% 8.8 % (0-10); NRBC Flagged by Analyzer 0 % (0-5); Neutrophil % 47.6 % (47-70); Platelet Count 198 K/mm3 (150-450); RBC Distribution Width CV 12.1 % (11.6-14.6); RBC Distribution Width SD 37.2 fl (35.1-43.9); Red Blood Count 5.55 M/mm3 (4.6-6.2); White Blood Count 4.2 K/mm3 (4.4-11.0)
[2023-03-20 12:42] LABS: Vitamin D,25 Hydroxy 60.9 ng/mL
[2023-03-20 12:45] LABS: ALB/GLOB Ratio 1.2 RATIO (0.9-2.4); AST(SGOT) 18 U/L (15-37); Alanine Aminotransfer ALT/SGPT 22 U/L (16-61); Alkaline Phosphatase 59 U/L (45-117); Anion Gap 7 (5-15); BUN 10 mg/dL (7-18); BUN/Creat Ratio 12.2 RATIO (10-20); Calcium,Total 8.7 mg/dL (8.5-10.1); Chloride 106 mmol/L (98-107); Cholesterol 164 mg/dL (200); Creatinine, Serum 0.82 mg/dL (0.70-1.30); EST Glomerular Filtration Rate 98 mL/min (>60); Est Glom Filt Rate - Afr Amer 119 mL/min (>60); Free T3 2.9 pg/mL (2.18-3.98); Globulin 3.4 g/dL (2.2-4.2); Glucose 103 mg/dL (74-106); High Density Lipoprotein 38 mg/dL; PSA,Total - Annual Screen 1.33 ng/mL (0.00-4.00); Potassium 3.5 mmol/L (3.5-5.1); Protein, Total 7.4 g/dL (6.4-8.2); Sodium Level 139 mmol/L (136-145); T4 Free Direct 1.06 ng/dL (0.76-1.46); Thyroid Stim Hormone (TSH) 0.97 uIU/mL (0.358-3.74); Triglycerides 90 mg/dL; Very Low Density Lipoprotein 18 mg/dL (5-40)
[2023-03-20 12:46] LABS: Hemoglobin A1c 5.2 % (3.8-5.6)
== END | disposition home or self-care (01) ==
LOC: LAB 10:47
PROVIDERS: PCP Internal Medicine; Visit Provider Internal Medicine
DX: I10 Essential (primary) hypertension (principal); Z12.5 Encounter for screening for malignant neoplasm of prostate; Z13.220 Encounter for screening for lipoid disorders; R73.9 Hyperglycemia, unspecified; E55.9 Vitamin D deficiency, unspecified
CPT/HCPCS: 36415; 80053; 80061; 82306; 83036; 84153; 84439; 84443; 84481; 85025; G0103

== ENCOUNTER 2023-12-09 09:32 | Emergency (ER) | payer MEDICARE, SELFPAY ==
[2023-12-09 09:32] VITALS: BP 169/99; PULSE 75; RESP 14; TEMP 36.6; O2SAT 98; BMI 30.2
--- NOTE | 2023-12-09 10:25 | CT_ITS ---
STUDY: CT BRAIN WITHOUT CONTRAST REASON FOR EXAM: Male, 73 years old. New occipital and left retroorb headaches RADIATION DOSAGE (If Supplied By Facility): CTDIvol = ( 44.99 ) mGy, DLP = ( 897.35 ) mGycm TECHNIQUE: Transaxial CT imaging of the brain was performed without administration of intravenous contrast material. Individualized dose optimization techniques were used for this CT. COMPARISON: No relevant priors. FINDINGS: Normal soft tissue structures. Normal calvarium. Normal size ventricles and extra-axial spaces for the patient''s age. Normal white matter tracts of the cerebral hemispheres. Normal basal ganglia and thalami. Normal brainstem. Normal cerebellum. There is no intracranial hemorrhage. There are no findings of an acute ischemic infarction. Normal visualized paranasal sinuses. CT/Brain/Head without Contrast IMPRESSION: Normal unenhanced CT scan of the brain. Electronically Signed: Jon Sutherland MD at 11:08 EDT ,
--- NOTE | 2023-12-09 10:26 | EX.ED.DYSGE1 ---
HPI History of Present Illness Chief Complaint: Hypertension Informant: patient Narrative Narrative: Patient checked his blood pressure at home it was 190 systolic and he is concerned that is causing his headaches. He is on 3 blood pressure medications, no recent changes, he has been compliant with them and took them this morning, this was a short time after he took his pills. Patient states his neck has been hurting and he was told that he may have a pinched nerve although he denies having any numbness in his arms or his scalp. He is not sure if there was an obvious reason for his neck hurting. He was seen his doctor and a chiropractor earlier in the year for this, it seemed to improve and then several weeks ago it seemed to get worse around the same time he started having headaches. He states the headache is basically been constant, but sometimes it is worse than others, for the past couple weeks. It is occipital and left frontal/retro-orbital, it is currently the latter only. His blood pressure is better now and he states his headache is no better than it was earlier this morning. He occasionally has some photophobia/slight sensitivity, no vision changes no peripheral neurologic symptoms or disequilibrium. [facility] Medical History Schwannoma of nerve of chest Irritation of right eye Arthritis Essential hypertension Home Medications ?Medication ?Instructions ?Recorded ?Last Taken ?Type ascorbic acid (vitamin C) 1,000 mg 2 g PO DAILY 06/01/20 Unknown History tablet multivitamin,zo-dded-fotnjzun 1 tab PO DAILY 06/01/20 Unknown History (Complete Multivitamin tablet) turmeric 100 mg-ximena 150 1 cap PO DAILY 10/31/20 Unknown History mg-olive 50 mg-oreg 150 mg-capryl capsule zinc 10 mg tablet 10 mg PO DAILY 04/19/21 Unknown History cholecalciferol (vitamin D3) 50 50 mcg PO DAILY 03/04/22 Unknown History mcg (2,000 unit) capsule lisinopril 40 mg tablet 40 mg PO DAILY #90 tabs 12/16/22 12/09/23 Rx amlodipine 10 mg tablet 10 mg PO DAILY #90 tabs 10/29/23 12/09/23 Rx hydrochlorothiazide 25 mg tablet 12.5 mg (1/2 x 25 mg) PO DAILY #90 12/01/23 12/09/23 Rx tabs metoclopramide HCl 10 mg tablet 10 mg PO Q6H PRN nausea and 12/09/23 Unknown Rx vomiting or migraine #20 tabs Allergy/AdvReac Type Severity Reaction Status Date / Time No Known Allergies Allergy Verified 12/09/23 09:44 Family History Other CVA (cerebral vascular accident) Diabetes Hypertension Surgical History Cholecystectomy planned History of ankle surgery History of appendectomy Social History Smoking Status: Never smoker alcohol intake: never substance use type: does not use what type of physical activity do you participate in: weight training and other details: active lifestyle frequency: daily ROS ROS ED Constitutional Constitutional ED: Denies chills or fever(s) Eyes Eyes: Reports as per HPI and photophobia; Denies change in vision or diplopia ENT ENT ED: Denies rhinorrhea or sore throat Cardiovascular Cardiovascular: Denies chest pain or palpitations Respiratory/Chest Respiratory/Chest: Denies cough or dyspnea Gastrointestinal Gastrointestinal: Denies abdominal pain, diarrhea, nausea or vomiting Genitourinary Genitourinary ED: Denies dysuria or hematuria Musculoskeletal Musculoskeletal: Reports neck pain; Denies back pain Integumentary Denies abscess or rash Neurologic Neurologic: Reports headache(s); Denies paresthesias or weakness Psychiatric Psychiatric: Denies anxiety or suicidal thoughts EXAM Physical Exam Const Vital Signs: 12/09/23 09:32 12/09/23 09:42 Temperature 97.9 F Temperature Source Temporal Pulse Rate 75 Respiratory Rate 14 Respiratory Pattern Normal Blood Pressure 169/99 H Blood Pressure Mean 122 Pulse Ox 98 Oxygen Delivery Method Room Air Positive well nourished and well developed General Appearance ED: well developed and NAD HEENT Reports moist mucous membranes normocephalic and atraumatic Eyes PERRL and EOMs intact bilaterally Neck full ROM and supple Resp normal respiratory effort and clear to auscultation bilaterally Cardio regular rate, regular rhythm and no murmurs GI non-tender and non-distended Auscultation: normoactive bowel sounds Palpation: soft Back/Spine no CVA tenderness General Back: other FROM Extremity normal to inspection General Extremety ED: Negative for edema, pulses abnormal or tenderness General Extremity: Negative for edema or pulses abnormal Neuro oriented x3, CN's II-XII intact bilaterally and no sensory deficits noted Neuro Narrative: Normal ipijai-gq-lbih and dytx-yj-sukr bilaterally. Sensorium / Orientation: awake and alert Motor Exam: strength 5/5 throughout Psych mental status grossly normal Skin no rashes or lesions noted and no wounds MDM MDM MDM Narrative Medical decision making narrative: At the bedside during my evaluation the patient's blood pressure is 148/85. He still has the symptoms no different than earlier at home when he measured 190. Given that and the history my suspicion is that his elevated blood pressure not causing the headaches. I think they are more likely to be coming from his musculoskeletal neck issue. He has a normal neurologic exam. We did a head CT to rule out intracranial hemorrhage and/or mass effect. I reviewed the images and the report which I agree with it is negative. Basic labs are negative no sign of SYD. He was reassured about his episode of hypertension advised to follow-up with his doctor, for all the above. In the meantime we gave him a dose of Reglan, this really helped with headache. When I discussed all this with him, he states that his Neck is probably been hurting for over a year, since he fell on ice and had a whiplash injury. He states he has some onset are worse than others, and it sounds like his neck pain coincides with the injury. I do not think he has had an MRI of this, he was advised that that would be the best medical test to image the ligaments to see if there is persistent injury. Follow-up advised we will prescribe him some Reglan to help at night for sleep he is comfortable with that plan. Lab Data Attestation: I reviewed the patient's lab results. Labs: Laboratory Results - last 24 hr 12/09/23 10:39 WBC 4.6 RBC 5.66 Hgb 16.4 Hct 47.9 MCV 84.6 MCH 29.0 MCHC 34.2 RDW Std Deviation 36.5 RDW Coeff of Gerardo 12.0 Plt Count 183 MPV 9.6 Immature Gran % (Auto) 0.200 Neut % (Auto) 54.0 Lymph % (Auto) 31.5 [place] % (Auto) 10.2 H Eos % (Auto) 2.8 Baso % (Auto) 1.3 H Absolute Neuts (auto) 2.5 Absolute Lymphs (auto) 1.45 Nucleated RBC % 0 Sodium 139 Potassium 3.7 Chloride 105 Carbon Dioxide 30.0 Anion Gap 4 L BUN 13 Creatinine 0.88 Estim Creat Clear Calc 97.47 Est GFR (MDRD) Af Amer 109 Est GFR (MDRD) Non-Af 90 BUN/Creatinine Ratio 14.7 Glucose 104 Calcium 9.5 Radiography Diagnostic Testing: Clinical Impression(s) from Imaging Studies Brain CT 12/09/23 10:25 IMPRESSION: Normal unenhanced CT scan of the brain. 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, Episode of hypertension Instructions: Hypertension Dc, ED, Migraine (Classical) Prescriptions: New metoclopramide HCl 10 mg tablet 10 mg PO Q6H PRN (Reason: nausea and vomiting or migraine) Qty: 20 0RF No Action Complete Multivitamin Tablet 1 tab PO DAILY ascorbic acid (vitamin C) 1,000 mg tablet 2 g PO DAILY mslwnggj-alsd-uzgsz-oreg-capry 100 mg-150 mg- 50 mg-150 mg capsule 1 cap PO DAILY cholecalciferol (vitamin D3) 50 mcg (2,000 unit) capsule 50 mcg PO DAILY zinc 10 mg Tablet 10 mg PO DAILY lisinopril 40 mg tablet 40 mg PO DAILY Qty: 90 3RF amlodipine 10 mg tablet 10 mg PO DAILY Qty: 90 3RF hydrochlorothiazide 25 mg tablet 12.5 mg PO DAILY Qty: 90 1RF Primary Care Provider: Jaky Cheng Referrals: Jaky Cheng MD [Primary Care Provider] - 1 Week if not improving Print Language: Romanian Disposition Disposition: Home, Self Care
[2023-12-09] MEDS: Metoclopramide 10 MG/2 ML Vial 5 MG IV (10:34)
[2023-12-09 10:51] LABS: Absolute Lymphocyte Count 1.45 X10^3/uL (0.83-4.51); Absolute Neutrophil Count 2.5 X10^3/uL (2.0-7.7); Basophil# 0.06 X10^3/uL; Basophil% 1.3 % (0-1); Eosinophil# 0.13 X10^3/uL; Eosinophils% 2.8 % (0-5); Hematocrit 47.9 % (40-54); Hemoglobin 16.4 g/dL (13.0-16.5); Lymphocyte # 1.45 X10^3/ul (0.83-4.51); Lymphocyte % 31.5 % (19-41); Mean Corp Hgb Conc 34.2 g/dL (32-36); Mean Corpuscular Volume 84.6 fL (80-94); Mean Platelet Vol. 9.6 fl (6.2-12.0); Monocyte# 0.47 X10^3/uL; Monocyte% 10.2 % (0-10); NRBC Flagged by Analyzer 0 % (0-5); Neutrophil # 2.48 X10^3/uL (2.7-7.7); Platelet Count 183 K/mm3 (150-450); RBC Distribution Width SD 36.5 fl (35.1-43.9); Red Blood Count 5.66 M/mm3 (4.6-6.2); White Blood Count 4.6 K/mm3 (4.4-11.0)
[2023-12-09 11:06] LABS: Anion Gap 4 (5-15); BUN 13 mg/dL (7-18); BUN/Creat Ratio 14.7 RATIO (10-20); Calcium,Total 9.5 mg/dL (8.5-10.1); Chloride 105 mmol/L (98-107); Creatinine, Serum 0.88 mg/dL (0.70-1.30); EST Glomerular Filtration Rate 90 mL/min (>60); Est Glom Filt Rate - Afr Amer 109 mL/min (>60); Estimated Creatinine Clearance 97.47 ml/min; Glucose 104 mg/dL (74-106); Potassium 3.7 mmol/L (3.5-5.1); Sodium Level 139 mmol/L (136-145)
[2023-12-09 11:32] VITALS: BP 156/88; PULSE 79; RESP 16; O2SAT 100
== END 2023-12-09 11:56 | disposition home or self-care (01) ==
PROVIDERS: Emergency Provider Emergency Medicine; PCP Internal Medicine; Visit Provider Emergency Medicine
DX: G43.909 Migraine, unspecified, not intractable, without status migrainosus (principal); G89.29 Other chronic pain; I10 Essential (primary) hypertension; Z79.01 Long term (current) use of anticoagulants; S13.4XXD Sprain of ligaments of cervical spine, subsequent encounter; W19.XXXD Unspecified fall, subsequent encounter
CPT/HCPCS: 70450; 80048; 85025; 96374; 99283; A4216

== ENCOUNTER → 2024-01-12 | Outpatient (CLI) | payer MEDICARE, SELFPAY ==
--- NOTE | 2024-01-12 06:44 | MRI_ITS ---
STUDY: MRI BRAIN WITHOUT CONTRAST REASON FOR EXAM: Male, 73 years old. UMAÑA posterior, lateral, behind the left eye, new -- Uncontrolled hypertension TECHNIQUE: Standardized multiplanar fat and water weighted pulse sequences were obtained. COMPARISON: Head CT dated December 09, 2023. FINDINGS: There is mild cerebral atrophy with widening of the extra-axial spaces and ventricular dilatation. There are a limited number of small white matter hyperintensities, distributed throughout the deep white matter tracts of the cerebral hemispheres, consistent with mild chronic white matter ischemic changes. There are no demyelinating plagues of the supratentorial brain, brainstem or cerebellum. There are no findings suspicious for multiple sclerosis (MS). Normal T2* images of the brain without demonstrated susceptibility artifact. There is no demonstrated hemosiderin stain. Normal bilateral frontal poles, and orbital frontal and gyrus recti of the frontal lobes. Normal bilateral temporal tips of the temporal lobes. There are no white matter shear injuries (diffuse axonal injuries). There are no parenchymal hemorrhages or hematomas. There are no findings to suggest prior closed head parenchymal injury of the brain. Normal bilateral basal ganglia. Normal thalami. There is no extra-axial fluid accumulation. Normal flow voids within the major intracranial circulation suggesting patency by spin echo criteria. Normal sella turcica, pituitary gland, infundibular stalk, optic chiasm and hypothalamus. Normal tectal plate and pineal gland. Normal midbrain, pat and medulla. Normal cerebellum. Normal basal cisterns. Normal bilateral temporal bones. Normal bilateral internal auditory canals. No demonstrated orbital abnormality, within the constraints of a routine brain study. Normal visualized paranasal sinuses. Normal calvarium and skull base. Normal visualized soft tissue structures. Normal visualized upper cervical spine. MRI/Brain without Contrast IMPRESSION: 1. Minimal chronic ischemic changes of the brain, as described above. Electronically Signed: Pedro Pablo Schwarz MD at 9:18 EDT ,
--- NOTE | 2024-01-12 06:44 | MRI_ITS ---
STUDY: MRA OF THE HEAD WITHOUT CONTRAST REASON FOR EXAM: Male, 73 years old. Frequent UMAÑA, new onset, uncontrolled HTN TECHNIQUE: 3-D sxnq-ka-enpnio (TOF) imaging was performed with MIPs. The study was performed unenhanced. COMPARISON: Head CT dated January 12, 2024. MRI of the brain dated January 12, 2024 FINDINGS: Normal bilateral petrous carotid arteries. There is atheromatous plaque formation of the right cavernous carotid artery, with a mild stenosis (less than 50%). There is atheromatous plaque formation of the left cavernous carotid artery, with a mild stenosis (less than 50%). Normal right A1 segments of the anterior cerebral artery. Normal left A1 segments of the anterior cerebral artery. Normal intact anterior communicating artery (ACOM). Normal bilateral A2 segments of the anterior cerebral arteries. Normal right M1 and M2 segments of the middle cerebral arteries, with a normal M1 bifurcation. Normal left M1 and M2 segments of the middle cerebral arteries, with a normal M1 bifurcation. Normal right posterior communicating artery (PCOM). Normal left posterior communicating artery (PCOM). Normal bilateral vertebral arteries. Normal basilar artery with a normal basilar bifurcation. The visualized bilateral superior cerebellar (SCA) arteries are normal. Normal bilateral P1, P2 and visualized P3 segments of the posterior cerebral arteries. There is no demonstrated aneurysm of the [place]. There is no major vessel occlusion or hemodynamically significant stenosis. MRI/MRA Head ONLY without Contrast IMPRESSION: 1. There is no demonstrated aneurysm of the [place]. There is no major vessel occlusion or hemodynamically significant stenosis. Electronically Signed: Pedro Pablo Schwarz MD at 9:48 EDT ,
--- NOTE | 2024-01-12 06:44 | MRI_ITS ---
STUDY: MRI CERVICAL SPINE WITHOUT CONTRAST REASON FOR EXAM: Male, 73 years old. Cervical nerve root impingement right rt neck pain, valdes''s TECHNIQUE: Standardized fat and water weighted pulse sequences were obtained in the sagittal and axial planes. COMPARISON: Cervical spine dated April 24, 2021 FINDINGS: Normal foramen magnum and brainstem-cervical cord junction. Normal craniovertebral junction. Normal anterior atlantoaxial articulation. Normal odontoid process. There is straightening of the normal cervical lordosis. Disc desiccation is present all levels. C2-3: Normal endplates. Normal disc height, signal and morphology. Normal central canal and intervertebral neural foramina. C3-4: Normal endplates. Normal disc height, signal and morphology. Normal central canal and intervertebral neural foramina. C4-5: Normal endplates. Normal disc height, signal and morphology. Normal central canal and intervertebral neural foramina. C5-6: Normal endplates. Normal disc height, signal and morphology. Normal central canal and intervertebral neural foramina. C6-7: Mild signal changes at the opposing endplates. Moderate disc space narrowing. Normal central canal. Slight flattening of the right ventral canal is slightly flattened contour of the ventral cord, no brandon spinal stenosis or cord impingement. The posterior thecal sac is well-maintained. Left mild to moderate neural foraminal stenosis appears to be predominantly due to uncovertebral osteophyte. C7-T1: Normal endplates. Normal disc height, signal and morphology. Normal central canal and intervertebral neural foramina. Normal cervical cord. There is no demonstrated cervical cord syrinx cavity. Normal visualized soft tissue structures. MRI/Spine Cervical (Routine) IMPRESSION: Multilevel low T2 signal intensity of the disc space with desiccation. Moderate disc space narrowing and slight right ventral canal and cord flattening without brandon cord impingement or canal stenosis at C6-7. Moderate C6-7 left neural foraminal stenosis. Electronically Signed: Sharon Solis MD at 2:55 EDT ,
--- OUTSIDE RECORDS SUMMARY | 2024-01-12 06:44 | XMS RPT_ITS | CCD ---
Author Organization [facility] Care Team Providers Care Lyft Driver Name Role Phone WILTON MOHAN (INTERIOR DESIGN FACULTY MEMBER) Unavailable Unavailabl e KRISTIN, DR BETTY Ponce [...] Results Test Name Value Interpretation Reference Range Facility CORONAVIRUS PCR - [facility] 03-15-2021 SARS-CoV-2 (COVID-19) RNA CATHY+probe Ql (Unsp spec) Negative Normal NORMAL: NEGATIVE [place] Comment on above: Performed By: #### [id number] #### [place],[address] [place], [place] [id number] SEND TO IC? YES Normal [place] Comment on above: Result Comment: CHIQUI BEAULIEU FAXED TO INFECTION CONTROL. SARS-CoV-2 THIS TEST IS BEING USED UNDER THE FDA EUA PROCEDURE. THIS ASSAY HAS BEEN VALIDATED IN THE [facility] FOR USE WITH NASOPHARYNGEAL SPECIMENS IN [facility]. INTERPRETIVE DATA LABORATORY TEST RESULTS SHOULD ALWAYS BE CONSIDERED IN THE CONTEXT OF CLINICAL OBSERVATIONS AND EPIDEMIOLOGICAL DATA IN MAKING FINAL DIAGNOSIS AND PATIENT MANAGEMENT DECISIONS. PATIENT MANAGEMENT SHOULD FOLLOW CURRENT CDC GUIDELINES. A POSITIVE TEST RESULT FOR COVID-19 INDICATES THAT RNA FROM SARS-CoV-2 WAS DETECTED, AND THE PATIENT IS INFECTED WITH THE VIRUS AND PRESUMED TO BE CONTAGIOUS. A NEGATIVE TEST RESULT FOR THIS TEST MEANS THAT SARS-CoV-2 RNA WAS NOT PRESENT IN THE SPECIMEN ABOVE THE LIMIT OF DETECTION. HOWEVER, A NEGATVIE RESULT DOES NOT RULE OUT COVID-19 AND SHOULD NOT BE USED THE SOLE BASIS FOR TREATMENT OR PATIENT MANAGEMENT DECISIONS. A NEGATIVE RESULT DOES NOT EXCLUDE THE POSSIBILITY OF COVID-19. WHEN DIAGNOSTIC TESTING IS NEGATIVE, THE POSSIBLILTY OF A FALSE NEGATIVE RESULT SHOULD BE CONSIDERED IN THE CONTEXT OF A PATIENT'S RECENT EXPOSURES AND THE PRESENCE OF CLINICAL SIGNS AND SYMPTOMS CONSISTENT WITH COVID-19. THE POSSIBILITY OF A FALSE NEGATIVE RESULT SHOULD ESPECIALLY BE CONSIDERED IF THE PATIENT'S RECENT EXPOSURES OR CLINICAL PRESENTATION INDICATE THAT COVID-19 IS LIKELY, AND DIAGNOSTIC TESTS FOR OTHER CAUSES OF ILLNESS (e.g., OTHER RESPIRATORY ILLNESS) ARE NEGATIVE. IF COVID-19 IS STILL SUSPECTED BASED ON EXPOSURE HISTORY TOGETHER WITH OTHER CLINICAL FINDINGS, RE-TESTED SHOULD BE CONSIDERED BY HEALTHCARE PROVIDERS IN CONSULTATION WITH PUBLIC HEALTH AUTHORITIES. Performed By: #### [id number] #### [facility],[address] [place] [address] Hank 11-29-2020 [facility] Telephone (FAMWS) ----- JOSE CARVAJAL ([id number]) 1950 Debbie Date Time Provider Department 11/29/20 AMY LEVI FAMPWS During your visit today, we recorded the following information about you: Jeannine Oropeza Pss 11/29/2020 10:20 AM Signed Patient requesting disk and report of 07/2017 xrays of foot/ankle. Will be in tomorrow to spanish moss picker. Kaya Mccray, PSS 11/29/2020 11:15 AM Signed CD / REPORT READY FOR PROTEIN SPECIALIST AT [facility] Allergies As of Date: 11/29/2020 (No Known Allergies) Date Reviewed: 03/16/2019 Reviewed by: Christie Banda Ma - Fully Assessed Reason for Visit: disk and report [Other] Prescriptions as of 12/17/2020 - aspirin 81 mg chewable tablet Take 81 mg by mouth once daily. - amLODIPine (NORVASC) 10 mg tablet TAKE ONE TABLET BY MOUTH ONCE DAILY - hydroCHLOROthiazide (HYDRODIURIL, ESIDRIX) 25 mg tablet Take 1 tablet by mouth once daily. - lisinopril (ZESTRIL, PRINIVIL) 40 mg tablet Take 1 tablet by mouth once daily. Problem List As Of Date 11/29/2020 Noted Resolved ESOPHAGEAL REFLUX [K21.9] 05/16/2005 Calculus [...] aorta (HCC) [I70.0] 07/23/2017 Encounter Status:Closed by AMANDA SWAINJEANNINE on 12/17/20 Normal [facility] Coronavirus 2019on 0 COVID 19 Result MANAGER TECHNICAL TRAINING Normal Negative for COVID19 (SARS CoV2) by PCR. [facility] Comment on above: Result Comment: Nega tive for This test was developed and its performance characteristics determined by [facility]. This test has been authorized by [facility] under an Emergency Use Authorization (EUA). This test has been validated in accordance with the FDA's Guidance Document Policy for Diagnostics Testing in Laboratories Certified to Perform High Complexity Testing under CLIA prior to Emergency use Authorization for Coronavirus Disease 2019 during the Public Health Emergency issued on May 22, 2019. COVID19 (SARS This test was developed and its performance characteristics determined by [facility]. This test has been authorized by FDA under an Emergency Use Authorization (EUA). This test has been validated in accordance with the FDA's Guidance Document Policy for Diagnostics Testing in Laboratories Certified to Perform High Complexity Testing under CLIA prior to Emergency use Authorization for Coronavirus Disease 2019 during the Public Health Emergency issued on May 22, 2019. CoV2) by PCR. This test was developed and its performance characteristics determined by [facility]. This test has been authorized by FDA under an Emergency Use Authorization (EUA). This test has been validated in accordance with the FDA's Guidance Document Policy for Diagnostics Testing in Laboratories Certified to Perform High Complexity Testing under CLIA prior to Emergency use Authorization for Coronavirus Disease 2019 during the Public Health Emergency issued on May 22, 2019. Coronavirus 2019on 0 COVID 19 Source MANAGER TECHNICAL TRAINING Normal [facility] Comment on above: Result Comment: Naso pharyngeal Corrected on 02/12 AT 1030: Previously reported as U Swab Corrected on 02/12 AT 1030: Previously reported as U CTA CHEST (GATED) W IVCONon 07-23-2017 CTA CHEST (GATED) W IVCON * * *Final Report* * *DATE OF EXAM: Jul 23 2017 1:24PM [facility] [facility] - CTA CHEST (GATED) W IVCON / REASON: M54.6-Pain in thoracic spine * * * * Physician Interpretation * * * * Examination: CTA of the chest dated 07/23/2017 1:24 PMComparison: NoneHistory: 66 years old Male with back pain, CT requested to rule out thoracic aorta dissection.Technique: Multi-detector CT technology was employed (Siemens Definition Flash dual source scanner ). Axial, sequential imaging with prospective gating was performed of the chest following the IV administration of contrast material. A low-osmolar contrast agent was used (100 cc of Omnipaque 300).CT Dose-Length Product (DLP): 1080 mGycmCT Dose Reduction Employed: No dose reduction techniques were requiredFor optimization of anatomic evaluation, multiplanar reconstruction, maximum intensity projections, and advanced 3-D off-line postprocessing were performed on a dedicated stand-alone workstation by the interpreting physician.RESULT:Potentia l study limitations: None.CHEST:The chest wall is unremarkable. There is no significant adenopathy noted in the axillae, mediastinum, and ifeoma. The pericardium and pulmonary arteries appear normal.Lung windows reveal no acute abnormalities. There is no abnormal pulmonary parenchymal mass, infiltrate, or pleural effusion.The cardiac chambers demonstrate normal atrioventricular and ventriculoarterial concordance, and systemic and pulmonary venous return. The cardiac chamber sizes are normal. The coronary arteries have normal origins and courses. There are mild coronary calcifications identified, though this study was not optimized for coronary artery evaluation.VASCULAR WITH ADVANCED 3-D OFF-LINE POSTPROCESSING:Aortic valve morphology is trileaflet, and free from calcifications.The mild dilatation of the aortic root. There is no acute aortic pathology, such as dissection, intramural hematoma, or contained rupture. The arch vessel branching pattern is normal .Fabric Worker Fitter dimensions of the thoracic aorta are as follows:4.0 cm at the sinuses of Valsalva measured sinus to sinus (the sinotubular junction is preserved)3.7 cm at the mid ascending aorta2.9 cm at the mid transverse arch2.5 cm at the proximal descending thoracic aorta2.6 cm at the diaphragmatic hiatus2.4 cm at the supramesenteric aortaThe limited images of the upper abdomen reveal no abnormalities of the visualized organs. Gallbladder is not visualized.IMPRESSION:1. Mildly dilated aortic root. The rest of the Thoracic aorta is normal in caliber. No acute aortic pathology identified.Transcriptioni st: PSCB Transcribe Date/Time: Jul 23 2017 1:52PDictated by : TACHO MARTINEZ MDThis examination was interpreted and the report reviewed and electronically signed by: TACHO MARTINEZ MD on Jul 23 2017 2:02PM [id number] Normal [facility] Encounters Encounter Date Encounter Type Care Provider Facility Start: 03-15-2021 End: 03-15-[address] BETTY FOSTER [facility] Start: 06-12-2020 End: 06-12-[address] BETTY FOSTER [facility] Start: 05-18-2020 End: 05-18-[address] BETTY FOSTER [facility] Start: 07-23-2017 Ambulatory WILTON (INTERIOR DESIGN FACULTY MEMBER) [facility] Payers Date Payer Category Payer Medicare [id number] 1950 Unknown [id number] 1950 Unknown [id number] 1950 Unknown [id number] Clinical Note 11-20-2020 Note Date & Type Note Facility 11-20-2020 Note Patient Outreach (NE TNAV) JOSE CARVAJAL ([id number]) 1950 Date Time Provider Department 11/20/20 DAVID WORLEY During your visit today, we recorded the following information about you: David Worley Population Health Navigator 11/20/2020 9:38 AM Signed POPULATION HEALTH NAVIGATION OUTREACH Action/FYI I left a voice message and a my chart message re: pcp No care everywhere Contact made with patient or family member? NO Pt identified by name and : NO Outreach Outcome/Action Unable to reach patient: Left message Biom[employer] message sent Reason for Outreach Attribution: Provider [...] future healthcare decisions with a power of bankruptcy attorney, living will, or advance directives? No. Please bring a copy to your next appointment or email to [email or web address] Referrals: N/A Message Sent to Practice: NO Navigation Signature: David Worley Population Health Navigator November 20, 2020 [...] aorta (HCC) [I70.0] 07/23/2017 Encounter Status:Closed by ARBEN POPULATION HEALTH NAVIGATORDAVID on 11/20/20 [facility] Progress note 11-20-2020 Note Date & Type Note Facility 11-20-2020 Note HNO ID: [id number] Author: David Yost Health Navigator Service: ? Author Type: ? [...] future healthcare decisions with a power of bankruptcy attorney, living will, or advance directives? No. Please bring a copy to your next appointment or email to Referrals: N/A Message Sent to Practice: NO Navigation Signature: David Worley Population Health Navigator November 20, 2020 9:38 AM [facility] Summary Purpose Family History No Family History [...] ized section and content) DATE CREATED AUTHOR 09/11/2017 [facility] DATE CREATED AUTHOR AUTHOR'S ORGANIZ ATION 02/14/2020 [facility] DATE CREATED AUTHOR AUTHOR'S ORGANIZ ATION 03/20/2021 [facility] DATE CREATED AUTHOR AUTHOR'S ORGANIZ ATION 05/04/2021 [facility] FOR RECORDS PERTAINING TO PATIENTS WHO ARE [...] BE BASED ON THE PRIMARY CLINICAL RECORDS. [employer] provides no warranty or guarantee of the accuracy or completeness of information in this document.
== END | disposition home or self-care (01) ==
LOC: MRI 06:41
PROVIDERS: PCP Internal Medicine; Referring Provider Internal Medicine; Visit Provider Internal Medicine
DX: R51.9 Headache, unspecified (principal); G54.2 Cervical root disorders, not elsewhere classified; I10 Essential (primary) hypertension
CPT/HCPCS: 70544; 70551; 72141

== ENCOUNTER 2024-05-27 23:39 | Emergency (ER) | payer MEDICARE, SELFPAY ==
[2024-05-27 23:39] VITALS: BP 165/86; PULSE 70; RESP 17; TEMP 37.1; O2SAT 98; BMI 29.9
[2024-05-28] MEDS: Lidocaine 2% Viscous15 ML UDC 15 ML PO (00:10)
[2024-05-28] MEDS: Mag Hydrox/Al Hydrox/Simeth 30 ML UDC PO (00:10)
[2024-05-28 00:26] LABS: Absolute Lymphocyte Count 2.17 X10^3/uL (0.83-4.51); Basophil# 0.05 X10^3/uL; Basophil% 0.8 % (0-1); Eosinophil# 0.13 X10^3/uL; Eosinophils% 2.2 % (0-5); Hemoglobin 15.7 g/dL (13.0-16.5); Lymphocyte # 2.17 X10^3/ul (0.83-4.51); Lymphocyte % 36.3 % (19-41); Mean Corp Hgb Conc 36.5 g/dL (32-36); Mean Corpuscular Hgb 29.8 pg (27.0-32.0); Mean Corpuscular Volume 81.7 fL (80-94); Mean Platelet Vol. 9.4 fl (6.2-12.0); Monocyte# 0.58 X10^3/uL; Monocyte% 9.7 % (0-10); NRBC Flagged by Analyzer 0 % (0-5); Neutrophil # 3.04 X10^3/uL (2.7-7.7); Neutrophil % 50.8 % (47-70); Platelet Count 177 K/mm3 (150-450); RBC Distribution Width SD 35.8 fl (35.1-43.9); Red Blood Count 5.26 M/mm3 (4.6-6.2)
--- NOTE | 2024-05-28 00:34 | ED.VIS.CHEST ---
HPI History of Present Illness Chief Complaint: Chest Pain Informant: patient Narrative Narrative: 73-year-old male states he has been having left upper chest discomfort with some tingling in his left arm that has been constant for the past 2 days. He states he thinks it may be related to a doughnut pastry that he ate which is very unusual for him. He states he has a dry mouth, and states that multiple times. He states that he tries to drink at least a gallon of water a day, and he states he urinates quite a bit every day because of that and the fact that he is on hydrochlorothiazide. He is not a diabetic that he knows of. He had a checkup with his doctor the other day, and he has some fasting labs for tomorrow morning, but decided to come to have this evaluated tonight. Denies any nausea or vomiting. He states he walks a couple miles a day and it did not bother him when he was walking but when he lies down it seems to be worse. He denies dyspnea, lightheadedness, palpitations, fevers or chills or cough. States he was concerned about his blood pressure, checking it a couple times it was in the 130s and at highest it was in the 150s. [facility] Medical History Uncontrolled hypertension New onset headache Frequent headaches Schwannoma of nerve of chest Irritation of right eye Arthritis Essential hypertension Home Medications ?Medication ?Instructions ?Recorded ?Last Taken ?Type ascorbic acid (vitamin C) 1,000 mg 2 g PO DAILY 06/01/20 Unknown History tablet multivitamin,by-nlfj-wexknyaf 1 tab PO DAILY 06/01/20 Unknown History (Complete Multivitamin tablet) turmeric 100 mg-ximena 150 1 cap PO DAILY 10/31/20 Unknown History mg-olive 50 mg-oreg 150 mg-capryl capsule cholecalciferol (vitamin D3) 50 50 mcg PO DAILY 03/04/22 Unknown History mcg (2,000 unit) capsule amlodipine 10 mg tablet 10 mg PO DAILY #90 tabs 10/29/23 12/09/23 Rx hydrochlorothiazide 25 mg tablet 12.5 mg (1/2 x 25 mg) PO DAILY #90 12/01/23 12/09/23 Rx tabs lisinopril 40 mg tablet 40 mg PO DAILY #90 tabs 12/22/23 Unknown Rx Allergy/AdvReac Type Severity Reaction Status Date / Time No Known Allergies Allergy Verified 05/27/24 23:39 Family History Other CVA (cerebral vascular accident) Diabetes Hypertension Surgical History History of appendectomy History of ankle surgery Cholecystectomy planned Social History Smoking Status: Never smoker alcohol intake: never substance use type: does not use what type of physical activity do you participate in: weight training and other details: active lifestyle frequency: daily ROS ROS ED Constitutional Constitutional ED: Reports fatigue; Denies chills or fever(s) Eyes Eyes: Denies change in vision or diplopia ENT ENT ED: Denies rhinorrhea or sore throat Cardiovascular Cardiovascular: Reports chest pain; Denies palpitations Respiratory/Chest Respiratory/Chest: Denies cough or dyspnea Gastrointestinal Gastrointestinal: Denies abdominal pain, diarrhea, nausea or vomiting Genitourinary Genitourinary ED: Denies dysuria or hematuria Musculoskeletal Musculoskeletal: Denies back pain or neck pain Integumentary Denies abscess or rash Neurologic Neurologic: Reports paresthesias LUE; Denies headache(s) or weakness EXAM Physical Exam Const Vital Signs: 05/27/24 23:39 05/27/24 23:39 05/28/24 00:11 Temperature 98.7 F Temperature Source Oral Pulse Rate 70 Respiratory Rate 17 Respiratory Effort Normal Non-Labored Blood Pressure 165/86 H Blood Pressure Mean 112 Pulse Ox 98 Oxygen Delivery Method Room Air Room Air 05/28/24 00:39 05/28/24 01:00 Temperature Temperature Source Pulse Rate 62 62 Respiratory Rate 16 13 Respiratory Effort Blood Pressure 148/86 H 143/76 H Blood Pressure Mean 106 98 Pulse Ox 99 99 Oxygen Delivery Method Room Air Room Air Positive well nourished and well developed Constitutional Narrative: Well-appearing conversive in full sentences General Appearance ED: well developed and NAD HEENT Reports moist mucous membranes normocephalic and atraumatic Eyes PERRL and EOMs intact bilaterally Neck full ROM and supple Resp normal respiratory effort and clear to auscultation bilaterally Cardio regular rate, regular rhythm and no murmurs Peripheral Pulses: pulses 2+ throughout GI non-tender and non-distended Auscultation: normoactive bowel sounds Palpation: soft Back/Spine no CVA tenderness General Back: other FROM Extremity normal to inspection General Extremety ED: Negative for edema, pulses abnormal or tenderness General Extremity: Negative for edema or pulses abnormal Neuro oriented x3, CN's II-XII intact bilaterally and no sensory deficits noted Sensorium / Orientation: awake and alert Motor Exam: strength 5/5 throughout Skin no rashes or lesions noted and no wounds Heart Score History: Moderately Suspicious ECG: Normal Age: >/= 65 years Risk Factors: 1 or 2 Risk Factors Troponin: </= Normal Limit Score: 4 MDM MDM MDM Narrative Medical decision making narrative: Patient's EKG is unremarkable, one-view portable chest x-ray is normal on my interpretation, and his basic labs including his blood sugar at 91 and troponin high-sensitivity at 11 are all within normal limits. Furthermore, he was given a GI cocktail and notes resolution of his chest discomfort and arm tingling. His blood pressure initially 165, now 143, he is very concerned about the numbers, I reassured him, this is not a measure of what is going on in his heart, could be due to anxiety about being in the emergency department, and is nonspecific. I advised him to recheck it when he is feeling well. He has better now and I do not think we need another measurement of troponin since he has had discomfort for 2 days. Advised to take Prilosec for 2 weeks, and follow-up with his doctor as an outpatient he is comfortable with that plan. Lab Data Attestation: I reviewed the patient's lab results. Labs: Laboratory Results - last 24 hr 05/27/24 23:46 WBC 6.0 RBC 5.26 Hgb 15.7 Hct 43.0 MCV 81.7 MCH 29.8 MCHC 36.5 H RDW Std Deviation 35.8 RDW Coeff of Gerardo 12.0 Plt Count 177 MPV 9.4 Immature Gran % (Auto) 0.200 Neut % (Auto) 50.8 Lymph % (Auto) 36.3 Hyde % (Auto) 9.7 Eos % (Auto) 2.2 Baso % (Auto) 0.8 Absolute Neuts (auto) 3.0 Absolute Lymphs (auto) 2.17 Nucleated RBC % 0 Sodium 137 Potassium 3.5 Chloride 101 Carbon Dioxide 21.6 Anion Gap 14 BUN 12 Creatinine 0.78 Estim Creat Clear Calc 106.73 Est GFR (MDRD) Non-Af 95 BUN/Creatinine Ratio 15.2 Glucose 91 Calcium 9.1 Troponin T High Sens 11 Radiography Diagnostic Testing: Clinical Impression(s) from Imaging Studies Chest X-Ray 05/28/24 00:50 IMPRESSION: No evidence of acute disease. Reading Location: [facility] Rhythm Strip Rhythm Strip: Sinus Rhythm Rate: 68 Ectopy: None EKG Initial EKG: Attestation: I personally reviewed and interpreted this EKG as follows: Interpretation: Sinus Rhythm and No Acute Injury Pattern Comments: Nml axis & intervals; nml EKG Discharge Plan Triage Chief Complaint: Chest Pain ED Provider: Sumit Granados Dx/Rx/DC Orders Clinical Impression: Chest pain, non-cardiac Instructions: ED Chest Pain, Noncardiac Prescriptions: No Action Complete Multivitamin Tablet 1 tab PO DAILY ascorbic acid (vitamin C) 1,000 mg tablet 2 g PO DAILY famksnmo-pwky-dohlh-oreg-capry 100 mg-150 mg- 50 mg-150 mg capsule 1 cap PO DAILY cholecalciferol (vitamin D3) 50 mcg (2,000 unit) capsule 50 mcg PO DAILY amlodipine 10 mg tablet 10 mg PO DAILY Qty: 90 3RF hydrochlorothiazide 25 mg tablet 12.5 mg PO DAILY Qty: 90 1RF lisinopril 40 mg tablet 40 mg PO DAILY Qty: 90 3RF Primary Care Provider: Jaky Cheng Referrals: Jaky Cheng MD [Primary Care Provider] - 3-5 Days if not improving Activity Restrictions/Additional Instructions: Consider a 2-week course of Prilosec or Prevacid or Nexium Print Language: Citizen Of [place] Disposition Disposition: Home, Self Care
[2024-05-28 00:36] LABS: Anion Gap 14 (5-15); BUN 12 mg/dL (4-19); BUN/Creat Ratio 15.2 RATIO (10-20); Calcium,Total 9.1 mg/dL (7.6-11.0); Carbon Dioxide 21.6 mmol/L (21.0-32.0); Chloride 101 mmol/L (98-108); Creatinine, Serum 0.78 mg/dL (0.70-1.20); EST Glomerular Filtration Rate 95 (>60); Estimated Creatinine Clearance 106.73 ml/min (50-250); Glucose 91 mg/dL (70-99); Potassium 3.5 mmol/L (3.3-5.1); Sodium Level 137 mmol/L (133-145); Troponin T High Sensitivity 11 ng/L (<=22)
[2024-05-28 00:39] VITALS: BP 148/86; PULSE 62; RESP 16; O2SAT 99
--- NOTE | 2024-05-28 00:50 | RAD_ITS ---
PROCEDURE: CHEST 1 VIEW (PORTABLE) REASON FOR EXAM: Chest pain TECHNIQUE: Frontal view of the chest. 2 frontal images to include the entire chest COMPARISON: 09/30/2022 FINDINGS: The lungs are clear. Pulmonary vascularity appears within limits. The cardiac and mediastinal contours appear within limits. Ectatic thoracic aorta again noted. Surgical clips are again seen at the left lower chest/left upper quadrant. Old left-sided rib fractures. RAD/Chest 1 View (Portable) IMPRESSION: No evidence of acute disease. Reading Location: [id number]
[2024-05-28 01:00] VITALS: BP 143/76; PULSE 62; RESP 13; O2SAT 99
[2024-05-28 01:32] VITALS: BP 143/76; PULSE 87; RESP 18; TEMP 36.6; O2SAT 99
== END 2024-05-28 01:36 | disposition home or self-care (01) ==
PROVIDERS: Emergency Provider Emergency Medicine; PCP Internal Medicine; Visit Provider Emergency Medicine
DX: R07.89 Other chest pain (principal); I10 Essential (primary) hypertension; R20.2 Paresthesia of skin
CPT/HCPCS: 71045; 80048; 84484; 85025; 93005; 99285; A4216

== ENCOUNTER → 2024-05-28 | Outpatient (CLI) | payer MEDICARE, SELFPAY ==
[2024-05-28 12:23] LABS: Absolute Lymphocyte Count 1.63 X10^3/uL (0.83-4.51); Absolute Neutrophil Count 3.6 X10^3/uL (2.0-7.7); Basophil# 0.07 X10^3/uL; Basophil% 1.2 % (0-1); Eosinophil# 0.09 X10^3/uL; Eosinophils% 1.5 % (0-5); Hematocrit 46.6 % (40-54); Hemoglobin 16.4 g/dL (13.0-16.5); Lymphocyte # 1.63 X10^3/ul (0.83-4.51); Lymphocyte % 27.2 % (19-41); Mean Corp Hgb Conc 35.2 g/dL (32-36); Mean Corpuscular Hgb 29.5 pg (27.0-32.0); Mean Corpuscular Volume 83.8 fL (80-94); Monocyte# 0.55 X10^3/uL; Monocyte% 9.2 % (0-10); NRBC Flagged by Analyzer 0 % (0-5); Neutrophil # 3.64 X10^3/uL (2.7-7.7); Neutrophil % 60.6 % (47-70); Platelet Count 202 K/mm3 (150-450); RBC Distribution Width CV 12.2 % (11.6-14.6); RBC Distribution Width SD 37.1 fl (35.1-43.9); Red Blood Count 5.56 M/mm3 (4.6-6.2)
[2024-05-28 12:47] LABS: Hemoglobin A1c 5.6 % (<=5.6)
[2024-05-28 13:04] LABS: ALB/GLOB Ratio 1.6 RATIO (0.9-2.4); AST(SGOT) 23 U/L (<=37); Alanine Aminotransfer ALT/SGPT 19 U/L (<=46); Albumin, Serum 4.5 g/dL (3.4-4.8); Alkaline Phosphatase 63 U/L (40-129); Anion Gap 11 (5-15); BUN 10 mg/dL (4-19); BUN/Creat Ratio 12.7 RATIO (10-20); Calcium,Total 9.2 mg/dL (7.6-11.0); Carbon Dioxide 25.1 mmol/L (21.0-32.0); Chloride 101 mmol/L (98-108); Creatinine, Serum 0.79 mg/dL (0.70-1.20); EST Glomerular Filtration Rate 95 (>60); Globulin 2.8 g/dL (2.2-4.2); Glucose 94 mg/dL (70-99); Magnesium 2.3 mg/dL (1.5-2.2); PSA,Total - Annual Screen 1.19 ng/mL (0.02-4.00); Potassium 3.7 mmol/L (3.3-5.1); Protein, Total 7.3 g/dL (5.9-8.4); Sodium Level 138 mmol/L (133-145); Total Bilirubin 1.07 mg/dL (0.00-1.30); Vitamin D,25 Hydroxy 44.9 ng/mL (30-100)
[2024-05-28 13:27] LABS: Cholesterol 183 mg/dL (<=200); High Density Lipoprotein 41 mg/dL; Low Density Lipoprotein Calc. 132 mg/dL; Triglycerides 52 mg/dL; Very Low Density Lipoprotein 10 mg/dL (5-40); cholesterol:hdl ratio screen 4.46
== END | disposition home or self-care (01) ==
LOC: BIMLAB 09:59
PROVIDERS: PCP Internal Medicine; Referring Provider Internal Medicine; Visit Provider Internal Medicine
DX: Z12.5 Encounter for screening for malignant neoplasm of prostate (principal); I10 Essential (primary) hypertension; E55.9 Vitamin D deficiency, unspecified; Z13.220 Encounter for screening for lipoid disorders; R73.9 Hyperglycemia, unspecified
CPT/HCPCS: 36415; 80053; 80061; 82306; 83036; 83735; 84153; 84443; 85025; G0103

== ENCOUNTER → 2024-12-02 | Outpatient (CLI) | payer MEDICARE, SELFPAY ==
[2024-12-02 12:29] LABS: Hematocrit 44.4 % (40-54); Hemoglobin 15.5 g/dL (13.0-16.5); Immature Granulocytes Count 0.010 X10^3/uL (0.0-0.0); Mean Corp Hgb Conc 34.9 g/dL (32-36); Mean Corpuscular Volume 85.1 fL (80-94); Mean Platelet Vol. 10.4 fl (6.2-12.0); NRBC Flagged by Analyzer 0 % (0-5); Platelet Count 176 K/mm3 (150-450); RBC Distribution Width CV 12.6 % (11.6-14.6); RBC Distribution Width SD 38.7 fl (35.1-43.9); Red Blood Count 5.22 M/mm3 (4.6-6.2); White Blood Count 4.1 K/mm3 (4.4-11.0)
[2024-12-02 13:14] LABS: AST(SGOT) 22 U/L (<=37); Alanine Aminotransfer ALT/SGPT 16 U/L (<=46); Albumin, Serum 4.3 g/dL (3.4-4.8); Alkaline Phosphatase 52 U/L (40-129); Anion Gap 10 (5-15); BUN 13 mg/dL (4-19); BUN/Creat Ratio 16.1 RATIO (10-20); Calcium,Total 8.9 mg/dL (7.6-11.0); Carbon Dioxide 25.1 mmol/L (21.0-32.0); Chloride 104 mmol/L (98-108); Globulin 2.4 g/dL (2.2-4.2); Glucose 95 mg/dL (70-99); Potassium 3.5 mmol/L (3.3-5.1); Vitamin D,25 Hydroxy 57.2 ng/mL (30-100)
== END | disposition home or self-care (01) ==
LOC: BIMLAB 08:42
PROVIDERS: PCP Internal Medicine; Referring Provider Internal Medicine; Visit Provider Internal Medicine
DX: I10 Essential (primary) hypertension (principal); E55.9 Vitamin D deficiency, unspecified; R73.9 Hyperglycemia, unspecified
CPT/HCPCS: 36415; 80053; 82306; 83036; 84443; 85025

== ENCOUNTER 2025-02-24 08:53 | Emergency (ER) | payer MEDICARE, SELFPAY ==
[2025-02-24 08:54] VITALS: BP 172/96; PULSE 68; RESP 18; TEMP 36.6; O2SAT 99
[2025-02-24 09:30] VITALS: BMI 30.2
--- NOTE | 2025-02-24 09:30 | EX.ED.DYSGE1 ---
HPI History of Present Illness Chief Complaint: Hypertension Informant: patient Onset/Context/Timing Onset: Weeks Context: Gradual Onset Timing: Intermittent Current Severity: Mild Maximum Severity: Mild Narrative Narrative: 74-year-old male history of hypertension on both hydrochlorothiazide and lisinopril and he has been for some time. Recently his blood pressures have been running elevated. He denies any headache or exertional dyspnea or chest pain. Otherwise been feeling fine. Denies any recent illness or hospitalization. Prior similar symptoms: Yes Recent Illness/Hospitalization: No PFSH PFS Medical History Wears glasses Non-smoker History of stress test History of benign schwannoma Pilar cyst of scalp Uncontrolled hypertension New onset headache Frequent headaches Schwannoma of nerve of chest Irritation of right eye Arthritis Essential hypertension Home Medications ?Medication ?Instructions ?Recorded ?Last Taken ?Type ascorbic acid (vitamin C) 1,000 mg 2 g PO DAILY 06/01/20 Unknown History tablet multivitamin,vf-lthp-afiihcie 1 tab PO DAILY 06/01/20 Unknown History (Complete Multivitamin tablet) turmeric 100 mg-ximena 150 1 cap PO DAILY 10/31/20 Unknown History mg-olive 50 mg-oreg 150 mg-capryl capsule cholecalciferol (vitamin D3) 50 50 mcg PO DAILY 03/04/22 Unknown History mcg (2,000 unit) capsule amlodipine 10 mg tablet 10 mg PO DAILY #90 tabs 07/07/24 Unknown Rx hydrochlorothiazide 25 mg tablet 12.5 mg (1/2 x 25 mg) PO DAILY #90 07/07/24 Unknown Rx tabs lisinopril 40 mg tablet 40 mg PO DAILY #90 tabs 12/21/24 Unknown Rx magnesium 200 mg tablet 200 mg PO DAILY 02/07/25 Unknown History Allergy/AdvReac Type Severity Reaction Status Date / Time No Known Allergies Allergy Verified 02/24/25 08:55 Family History Other CVA (cerebral vascular accident) Diabetes Hypertension Surgical History History of esophagogastroduodenoscopy (EGD) History of colonoscopy History of appendectomy History of ankle surgery Cholecystectomy planned Social History Smoking Status: Never smoker alcohol intake: never substance use type: does not use what type of physical activity do you participate in: weight training and other details: active lifestyle frequency: daily ROS ROS ED ROS Narrative Denies recent illness Constitutional Constitutional ED: Denies chills or fever(s) Eyes Eyes: Denies blurry vision ENT ENT ED: Denies ear pain Cardiovascular Cardiovascular: Denies chest pain Respiratory/Chest Respiratory/Chest: Denies cough or dyspnea Gastrointestinal Gastrointestinal: Denies abdominal pain Genitourinary Genitourinary ED: Denies dysuria or hematuria Musculoskeletal Musculoskeletal: Denies arthralgias or back pain Integumentary Denies abscess Neurologic Neurologic: Denies headache(s), paresthesias or weakness Psychiatric Psychiatric: Denies anxiety or depression Endocrine Endocrinology: Denies cold intolerance Hematologic/Lymphatic Hematologic/Lymphatic: Reports none Allergic/Immunologic Allergic/Immunologic ED: Denies mouth swelling, tongue swelling or urticaria EXAM Physical Exam Narrative Exam Narrative: 74-year-old male sitting upright in bed at bedside. Clinically looks well. Vital signs are stable with initial blood pressure is elevated 172/96. He is in no distress. H EENT exam pupils round react light. Moist mucous members. Neck nontender no JVD. No lymphadenopathy. Lungs clear to auscultation bilaterally. Heart regular rhythm no murmur. Chest wall and ribs are nontender. Abdomen soft nontender. Moving all 4 extremities. 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 Dorsi plantarflexion intact. Nontender no edema. Back nontender. Neurologically is awake alert. Answering questions following commands. NIH is 0. Const Vital Signs: 02/24/25 08:54 Temperature 98 F Temperature Source Oral Pulse Rate 68 Respiratory Rate 18 Blood Pressure 172/96 H Blood Pressure Mean 121 Pulse Ox 99 Oxygen Delivery Method Room Air MDM MDM MDM Narrative Medical decision making narrative: 74-year-old male history of hypertension on both hydrochlorothiazide and lisinopril. Recently his blood pressures have been running a little higher. He is in a continue to exercise. Continue his current medications. He may take his lisinopril in the evening. He is to log his blood pressures twice daily and follow-up with his primary care physician to see if they need to adjust his medications. Both he and his are comfortable with the plan. He does not need any labs or imaging today. He had recent labs Doreen reviewed from November and he had a totally normal BUN and creatinine at that time. History & Record Review Discussion w/independent historian: Patient and Family Additional record(s) reviewed:: Prior outpatient record, Prior ED visit and Prior labs Discharge Plan Triage Chief Complaint: Hypertension ED Provider: Dionicio Burnett Dx/Rx/DC Orders Clinical Impression: Essential hypertension Instructions: ED Hypertension, Established Prescriptions: No Action Complete Multivitamin Tablet 1 tab PO DAILY ascorbic acid (vitamin C) 1,000 mg tablet 2 g PO DAILY [id number]-gzec-ztzkb-oreg-capry 100 mg-150 mg- 50 mg-150 mg capsule 1 cap PO DAILY cholecalciferol (vitamin D3) 50 mcg (2,000 unit) capsule 50 mcg PO DAILY magnesium 200 mg tablet 200 mg PO DAILY amlodipine 10 mg tablet 10 mg PO DAILY Qty: 90 3RF hydrochlorothiazide 25 mg tablet 12.5 mg PO DAILY Qty: 90 1RF lisinopril 40 mg tablet 40 mg PO DAILY Qty: 90 3RF Primary Care Provider: Jaky Cheng Referrals: Jaky Cheng MD [Primary Care Provider, Internal Medicine - [facility]] - 1-2 Weeks Activity Restrictions/Additional Instructions: Log your blood pressure twice daily once in the morning after breakfast when you are calm and relaxed and once in the evening after dinner. Continue your current blood pressure medication you may want to try taking lisinopril in the evening. Continue walking and exercise. Follow-up with your primary care provider Dr. Miller in 1 to 2 weeks showing your blood pressure with readings and you when he can decide if you need to adjust your medications at all. Print Language: Yi Disposition Disposition: Home, Self Care
[2025-02-24 09:32] VITALS: BP 157/93; PULSE 62; RESP 18; TEMP 36.4; O2SAT 99
--- OUTSIDE RECORDS SUMMARY | 2025-02-24 10:23 | XMS RPT_ITS | CCD ---
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 on above: Performed By: #### L 506.1001, L501.9985, L100.0100, L501.9520, L500.4050 ####[facility] [address] [place], [address] Potassium [Moles/Vol] 3.5 mmol/L Normal 3.3-5.1 [facility] Comment on above: Performed By: #### L 506.1001, L501.9985, L100.0100, L501.9520, L500.4050 ####[facility] [address] [place], [address] Sodium [Moles/Vol] 140 mmol/L Normal 133-145 [facility] Comment on above: Performed By: #### L 506.1001, L501.9985, L100.0100, L501.9520, L500.4050 ####[facility] [address] [place], [address] T PROT 6.8 g/dL Normal 5.9-8.4 [facility] Comment on above: Performed By: #### L 506.1001, L501.9985, L100.0100, L501.9520, L500.4050 ####[facility] [address] [place], [address] Urea nitrogen [Mass/Vol] 13 mg/dL Normal 4-19 [facility] Comment on above: Performed By: #### L 506.1001, L501.9985, L100.0100, L501.9520, L500.4050 ####[facility] [address] [place], [address] Eosinophil percentageOrdered By: Amy Levi on 12-02-2024 Eosinophils/100 WBC (Bld) 5.1 % High 0-5 [facility] Erythrocyte distribution wid th ratioOrdered By: Amy Levi on 12-02-2024 Erythrocyte distribution width (RBC) [Ratio] 12.6 % 11.6-14.6 [facility] Erythrocyte distribution wid th standard deviationOrdered By: Amy Levi on 12-02-2024 Erythrocyte distribution width (RBC) [Ratio] 38.7 fl 35.1-43.9 [facility] Glomerular filtration rate ( GFR) estimation/1.73 sq m using serum, plasma, or whole bOrdered By: Amy Levi on 12-02-2024 GFR/1.73 sq M.predicted among non-blacks MDRD (S/P/Bld) [Vol rate/Area] 93 mL/min/{1.73_m2} >60 [facility] Comment on above: mL/min/1.73m2 CKD-EP I Creatinine Equation (2020) Hematocrit Auto (Bld) [Volum e fraction]Ordered By: Amy Levi on 12-02-2024 Hematocrit (Bld) [Volume fraction] 44.4 % 40-54 [facility] Hemoglobin A1con 12-02-2024 HbA1c (Bld) [Mass fraction] 5.4 % Normal <=5.6 [facility] Comment on above: Result Comment: Norm al < 5.7 % Prediabetic 5.7 - 6.4 % Diabetic >or= 6.5 % Please note range changes. Performed By: #### L 506.1001, L501.9985, L100.0100, L501.9520, L500.4050 ####[facility] [address] [place], [address] Hemoglobin A1c percentageOrd ered By: Amy Levi on 12-02-2024 HbA1c (Bld) [Mass fraction] 5.4 % <5.7 [facility] Comment on above: Normal < 5.7 % Predi abetic 5.7 - 6.4 % Diabetic >or= 6.5 % Please note range changes. Hemoglobin measurementOrdere d By: Amy Levi on 12-02-2024 Hemoglobin (Bld) [Mass/Vol] 15.5 g/dL 13.0-16.5 [facility] Immature granulocytes/100 WB C Auto (Bld)Ordered By: Amy Levi on 12-02-2024 Immature granulocytes/100 WBC (Bld) 0.200 % 0.0-0.9 [facility] Comment on above: IG% - Immature Granu locytes (promyelocytes, myelocytes and metamyelocytes) > 1% indicates that a LEFT SHIFT is Present. Laboratory - Chemistry and C hemistry - challengeOrdered By: Amy Levi on 12-02-2024 AST [Catalytic activity/Vol] 22 U/L <38 [facility] MCV (mean corpuscular volume ) determinationOrdered By: Amy Levi on 12-02-2024 MCV (RBC) [Entitic vol] 85.1 fL 80-94 [facility] Mean corpuscular hemoglobin (MCH) determinationOrdered By: Amy Levi on 12-02-2024 MCH (RBC) [Entitic mass] 29.7 pg 27.0-32.0 [facility] Mean corpuscular hemoglobin concentration (MCHC) determinationOrdered By: Amy Levi on 12-02-2024 MCHC (RBC) [Mass/Vol] 34.9 g/dL 32-36 [facility] Mean platelet volume determi nationOrdered By: Amy Levi on 12-02-2024 Platelet mean volume (Bld) [Entitic vol] 10.4 fL 6.2-12.0 [facility] Monocyte percentageOrdered B y: Amy Levi on 12-02-2024 Monocytes/100 WBC (Bld) 10.5 % High 0-10 [facility] Neutrophil percentageOrdered By: Amy Levi on 12-02-2024 Neutrophils/100 WBC (Bld) 45.4 % Low 47-70 [facility] Nucleated red blood cell per centageOrdered By: Amy Levi on 12-02-2024 Nucleated RBC/100 WBC (Bld) [Ratio] 0 % 0-5 [facility] Platelet countOrdered By: Amna Levi on 12-02-2024 Platelets (Bld) [#/Vol] 176 10*3/uL 150-450 [facility] Potassium measurement (mass/ volume)Ordered By: Amy Levi on 12-02-2024 Potassium (Unsp spec) [Mass/Vol] 3.5 mmol/L 3.3-5.1 [facility] RBC Auto (Bld) [#/Vol]Ordere d By: Amy Levi on 12-02-2024 RBC (Bld) [#/Vol] 5.22 10*6/uL 4.6-6.2 [facility] Serum creatinine measurement (mass/volume)Ordered By: Amy Levi on 12-02-2024 Creatinine [Mass/Vol] 0.82 mg/dL 0.70-1.20 [facility] Serum globulin measurementOr dered By: Amy Levi on 12-02-2024 Globulin (S) [Mass/Vol] 2.4 g/dL 2.2-4.2 [facility] Serum glucose measurement (m ass/volume)Ordered By: Amy Levi on 12-02-2024 Glucose [Mass/Vol] 95 mg/dL 70-99 [facility] Serum or plasma alanine webster otransferase (ALT) measurementOrdered By: Amy Levi on 12-02-2024 ALT [Catalytic activity/Vol] 16 U/L <47 [facility] Serum or plasma albumin lizeth urement (mass/volume)Ordered By: Amy Levi on 12-02-2024 Albumin [Mass/Vol] 4.3 g/dL 3.4-4.8 [facility] Serum or plasma albumin/glob ulin mass ratioOrdered By: Amy Levi on 12-02-2024 Albumin/Globulin [Mass ratio] 1.8 {ratio} 0.9-2.4 [facility] Serum or plasma alkaline ashia sphatase measurementOrdered By: Amy Levi on 12-02-2024 ALP [Catalytic activity/Vol] 52 U/L 40-129 [facility] Serum or plasma calcium lizeth urement (mass/volume)Ordered By: Amy Levi on 12-02-2024 Calcium [Mass/Vol] 8.9 mg/dL 7.6-11.0 [facility] Serum or plasma urea nitroge n measurement (mass/volume)Ordered By: Amy Levi on 12-02-2024 Urea nitrogen [Mass/Vol] 13 mg/dL 4-19 [facility] Sodium levelOrdered By: Edna Levi on 12-02-2024 Sodium [Moles/Vol] 140 mmol/L 133-145 [facility] TSH DL <= 0.005 mIU/L QnOrde red By: Amy Levi on 12-02-2024 TSH Qn 1.080 uIU/mL 0.300-4.200 [facility] Thyroid Stim Hormone (TSH)on 12-02-2024 TSH 1.080 uIU/mL Normal 0.300-4.200 [facility] Comment on above: Performed By: #### L 506.1001, L501.9985, L100.0100, L501.9520, L500.4050 ####[facility] [address] [place], [address] Total proteinOrdered By: Chel Levi on 12-02-2024 Protein [Mass/Vol] 6.8 g/dL 5.9-8.4 [facility] Vitamin D,25 Hydroxyon 12-02 Vitamin D 25-OH 57.2 ng/mL Normal 30-100 [facility] Comment on above: Result Comment: Mirella min D Status Deficiency: <20 ng/mL (50nmol/L) Insufficiency: 20-30 ng/mL (50-75 nmol/L) Sufficiency: 30-100 ng/mL (75-250 nmol/L) Toxicity: >100 ng/mL (>250 nmol/L) Performed By: #### L 506.1001, L501.9985, L100.0100, L501.9520, L500.4050 ####[facility] [address] [place], [address] White blood cell (WBC) count Ordered By: Amy Levi on 12-02-2024 WBC (Bld) [#/Vol] 4.1 10*3/uL Low 4.4-11.0 [facility] MR/Chrissie 11-29-2024 MR/LUIS ALBERTO.[facility] [address] [place] [address] OFFICE VISIT Date of Service: 11/29/24 MR#: [id number] Acct: [id number] Name: JOSE CARVAJAL Rep #: [id number] : 1950 Provider: Dr. Amy samuels MD Age/Sex: 74/M Location: [facility] Status: Signed Intake Vital Signs 05/24/24 08:34 05/27/24 23:39 11/29/24 08:25 Height 6 ft 1 in 6 ft 1 in 6 ft 1 in Weight: 220 lb 4 oz BMI 29.0 BP 137/81 H Blood Pressure Location Lt brachial Position Sitting Respiration 16 Pulse 70 Pulse Source Monitor Temp 98.2 F Temp Source Temporal Pulse Oximetry (%) 95 Oxygen Delivery Method room air Intake Visit Reasons: 6 M FU Chief Complaint: Bump on head, right ankle pain Penology Professor Required: No Accompanied by: Self Is patient in pain?: Yes (Right ankle pain ) Pain scale (1-10): 3 Allergies No Known Allergies Allergy (Verified 11/29/24 08:17) Medications ???Medication ???Instructions ???Recorded ???Confirmed ???Type ascorbic acid (vitamin C) 1,000 mg 2 g PO DAILY 06/01/20 11/29/24 H istory tablet multivitamin,tx-iron-m inerals 1 tab PO DAILY 06/01/20 11/29/24 H istory (Complete Multivitamin tablet) turmeric 100 mg-ximena 150 1 cap PO DAILY 10/31/20 11/29/24 H istory mg-olive 50 mg-oreg 150 mg-capryl capsule cholecalciferol (vitamin D3) 50 50 mcg PO DAILY 03/04/22 11/29/24 History mcg (2,000 unit) capsule lisinopril 40 mg tablet 40 mg PO DAILY #90 tabs 12/22/23 0 11/29/24 Rx amlodipine 10 mg tablet 10 mg PO DAILY #90 tabs 07/07/24 0 11/29/24 Rx hydrochlorothiazide 25 mg tablet 12.5 mg (1/2 x 25 mg) PO DAILY #90 07/07/24 11/29/24 Rx tabs Have you fallen in the past year?: No PFS Medical History Uncontrolled hypertension New onset headache Frequent headaches Schwannoma of nerve of chest Irritation of right eye Arthritis Essential hypertension Surgical History History of appendectomy History of ankle surgery Cholecystectomy planned Family History Other CVA (cerebral vascular accident) Diabetes Hypertension Social History Smoking Status: Never smoker alcohol intake: never substance use type: does not use what type of physical activity do you participate in: weight training and other details: active lifestyle frequency: daily HPI HPI Chief Complaint: Bump on head, right ankle pain Details: JOSE CARVAJAL, is a 74 M who presents to the office today for 6-month follow-up. Hypertension, on HCTZ, lisinopril and amlodipine regimen. Stable. Dose is on chart. He is not having any chest pain, chest tightness or significant dyspnea. He has several questions about supplements which we addressed today. He has ongoing right ankle pain. He is doing much better from his neck and back pain, following with chiropractic. He has a cyst on the back of the left side of the scalp. This gets irritated from time to time, rubbed by the hat, when he is wearing it. Not infected. Review of systems per chart. Physical exam. Vital signs on chart. PERRLA. Sclera are clear. TMs are unremarkable with normal light reflexes. Canals are unremarkable. Posterior pharynx is unremarkable. Good dentition. No cervical or supraclavicular lymph nodes enlarged or tender. No clear thyromegaly. No thyroid nodules readily palpable. Lungs are without wheeze, rhonchi, rales. No E/A changes are heard. Heart is regular. Not tachycardic. No clear murmur, rub, or gallop is identified. The abdomen is soft. Bowel sounds are present. Nontender nondistended abdomen. No significant leg edema. Cranial nerve examination 2 through 12 are grossly unremarkable nonlateralizing. No obvious significant skin lesions although he does have a noninfected skin cyst that gets irritated. This is in the left posterior scalp area. He wears a hat outdoors, and they have irritates it frequently. He wonders about getting this removed. ROS Const Constitutional: No body ache, chills, excessive sweating, fatigue, fever(s), frequent falls, headache(s), snoring, weakness or change in appetite Eyes Eyes: No blurry vision, change in vision, eye pain or Light sensitivity ENT ENT: No abnormal hearing, ear or mastoid pain, tinnitus, nasal congestion, headache(s), neck pain or sore throat Resp Respiratory: No cough, shortness of breath, snoring or wheezing Cardio Cardiology: No chest pain at rest, chest pain with exertion, excessive sweating, dyspnea on exertion, lightheadedness, orthopnea or palpitations Gastro GI: No abdominal pain, change in bowel habits, constipation, cramping, diarrhea, nausea/dyspepsia or vo (more content not included)... Normal [facility] Absolute neutrophil countOrd ered By: Amy Levi on 05-28-2024 Neutrophils (Bld) [#/Vol] 3.6 10*3/uL 2.0-7.7 [facility] Anion gap in Serum or Plasma Ordered By: Amy Levi on 05-28-2024 Anion gap [Moles/Vol] 11 mmol/L 5-15 [facility] Automated blood erythrocyte countOrdered By: Amy Levi on 05-28-2024 RBC (Bld) [#/Vol] 5.56 10*6/uL Normal 4.6-6.2 [facility] Comment on above: Performed By: #### L 501.5200, L506.1001, L500.4100, L501.9985, L100.0100, L500.4050, L501.9520, L501.9910 #### [facility] [address] [place], [place], [id number] Automated blood hematocrit ( percentage)Ordered By: Amy Levi on 05-28-2024 Hematocrit (Bld) [Volume fraction] 46.6 % Normal 40-54 [facility] Comment on above: Performed By: #### L 501.5200, L506.1001, L500.4100, L501.9985, L100.0100, L500.4050, L501.9520, L501.9910 #### [facility] [address] [place], [place], [id number] Automated lymphocyte count a s percentage of total leukocytesOrdered By: Amy Levi on 05-28-2024 Lymphocytes/100 WBC (Bld) 27.2 % Normal 19-41 [facility] Comment on above: Performed By: #### L 501.5200, L506.1001, L500.4100, L501.9985, L100.0100, L500.4050, L501.9520, L501.9910 #### [facility] [address] [place], [place], [id number] BUN/creatinine ratioOrdered By: Amy Levi on 05-28-2024 Urea nitrogen/Creatinine [Mass ratio] 12.7 mg/mg - [facility] Basic Metabolic Profile (BMP )on 05-28-2024 BUN/CRE 15.2 RATIO Normal - [facility] Comment on above: Performed By: #### L 500.2500, L100.0100, L501.4021 ####[facility] [address] [place], [address] Calcium [Mass/Vol] 9.1 mg/dL Normal 7.6-11.0 [facility] Comment on above: Performed By: #### L 500.2500, L100.0100, L501.4021 ####[facility] [address] [place], [address] Chloride [Moles/Vol] 101 mmol/L Normal 98-108 [facility] Comment on above: Performed By: #### L 500.2500, L100.0100, L501.4021 ####[facility] [address] [place], [address] CO2 [Moles/Vol] 21.6 mmol/L Normal 21.0-32.0 [facility] Comment on above: Performed By: #### L 500.2500, L100.0100, L501.4021 ####[facility] [address] [place], [address] Creatinine [Mass/Vol] 0.78 mg/dL Normal 0.70-1.20 [facility] Comment on above: Performed By: #### L 500.2500, L100.0100, L501.4021 ####[facility] [address] [place], [address] ECRCL 106.73 ml/min Normal 50-250 [facility] Comment on above: Performed By: #### L 500.2500, L100.0100, L501.4021 ####[facility] [address] [place], [address] GAP 14 Normal 5-15 [facility] Comment on above: Performed By: #### L 500.2500, L100.0100, L501.4021 ####[facility] [address] [place], [address] GFR/1.73 sq M.predicted among non-blacks MDRD (S/P/Bld) [Vol rate/Area] 95 mL/min/{1.73_m2} Normal >60 [facility] Comment on above: Result Comment: mL/m in/1.73m2 CKD-EPI Creatinine Equation (2020) Performed By: #### L 500.2500, L100.0100, L501.4021 ####[facility] [address] [place], [address] Glucose [Mass/Vol] 91 mg/dL Normal 70-99 [facility] Comment on above: Performed By: #### L 500.2500, L100.0100, L501.4021 ####[facility] [address] [place], [address] Potassium [Moles/Vol] 3.5 mmol/L Normal 3.3-5.1 [facility] Comment on above: Performed By: #### L 500.2500, L100.0100, L501.4021 ####[facility] [address] [place], [address] Sodium [Moles/Vol] 137 mmol/L Normal 133-145 [facility] Comment on above: Performed By: #### L 500.2500, L100.0100, L501.4021 ####[facility] [address] [place], [address] Urea nitrogen [Mass/Vol] 12 mg/dL Normal 4-19 [facility] Comment on above: Performed By: #### L 500.2500, L100.0100, L501.4021 ####[facility] [address] [place], [address] Basophil percentageOrdered B y: Amy Levi on 05-28-2024 Basophils/100 WBC (Bld) 1.2 % High 0-1 [facility] Comment on above: Performed By: #### L 501.5200, L506.1001, L500.4100, L501.9985, L100.0100, L500.4050, L501.9520, L501.9910 #### [facility] [address] [place], [address] Bilirubin, totalOrdered By: Amy Levi on 05-28-2024 Bilirubin [Mass/Vol] 1.07 mg/dL Normal 0.00-1.30 [facility] Comment on above: Performed By: #### L 501.5200, L506.1001, L500.4100, L501.9985, L100.0100, L500.4050, L501.9520, L501.9910 #### [facility] [address] [place], [address] CBC W/Diff, Automatedon Absolute Lymph 1.63 X10 3/uL Normal 0.83-4.51 [facility] Comment on above: Performed By: #### L 501.5200, L506.1001, L500.4100, L501.9985, L100.0100, L500.4050, L501.9520, L501.9910 #### [facility] [address] [place], [address] Absolute Neut 3.6 X10 3/uL Normal 2.0-7.7 [facility] Comment on above: Performed By: #### L 501.5200, L506.1001, L500.4100, L501.9985, L100.0100, L500.4050, L501.9520, L501.9910 #### [facility] [address] [place], [address] IG% 0.300 Normal 0.0-0.9 [facility] Comment on above: Result Comment: IG% - Immature Granulocytes (promyelocytes, myelocytes and metamyelocytes) > 1% indicates that a LEFT SHIFT is Present. Performed By: #### L 501.5200, L506.1001, L500.4100, L501.9985, L100.0100, L500.4050, L501.9520, L501.9910 #### [facility] [address] [place], [address] Nucleated RBC (Bld) [#/Vol] 0 10*3/uL Normal 0-5 [facility] Comment on above: Performed By: #### L 501.5200, L506.1001, L500.4100, L501.9985, L100.0100, L500.4050, L501.9520, L501.9910 #### [facility] [address] [place], [address] RDW SD 37.1 fl Normal 35.1-43.9 [facility] Comment on above: Performed By: #### L 501.5200, L506.1001, L500.4100, L501.9985, L100.0100, L500.4050, L501.9520, L501.9910 #### [facility] [address] [place], [address] Absolute Lymph 2.17 X10 3/uL Normal 0.83-4.51 [facility] Comment on above: Performed By: #### L 500.2500, L100.0100, L501.4021 ####[facility] [address] [place], [address] Absolute Neut 3.0 X10 3/uL Normal 2.0-7.7 [facility] Comment on above: Performed By: #### L 500.2500, L100.0100, L501.4021 ####[facility] [address] [place], [address] Basophils/100 WBC (Bld) 0.8 % Normal 0-1 [facility] Comment on above: Performed By: #### L 500.2500, L100.0100, L501.4021 ####[facility] [address] [place], [address] Eosinophils/100 WBC (Bld) 2.2 % Normal 0-5 [facility] Comment on above: Performed By: #### L 500.2500, L100.0100, L501.4021 ####[facility] [address] [place], [address] Erythrocyte distribution width (RBC) [Ratio] 12.0 % Normal 11.6-14.6 [facility] Comment on above: Performed By: #### L 500.2500, L100.0100, L501.4021 ####[facility] [address] [place], [address] Hematocrit (Bld) [Volume fraction] 43.0 % Normal 40-54 [facility] Comment on above: Performed By: #### L 500.2500, L100.0100, L501.4021 ####[facility] [address] [place], [address] Hemoglobin (Bld) [Mass/Vol] 15.7 g/dL Normal 13.0-16.5 [facility] Comment on above: Performed By: #### L 500.2500, L100.0100, L501.4021 ####[facility] [address] [place], [address] IG% 0.200 Normal 0.0-0.9 [facility] Comment on above: Result Comment: IG% - Immature Granulocytes (promyelocytes, myelocytes and metamyelocytes) > 1% indicates that a LEFT SHIFT is Present. Performed By: #### L 500.2500, L100.0100, L501.4021 ####[facility] [address] [place], [address] Lymphocytes/100 WBC (Bld) 36.3 % Normal 19-41 [facility] Comment on above: Performed By: #### L 500.2500, L100.0100, L501.4021 ####[facility] [address] [place], [address] MCH (RBC) [Entitic mass] 29.8 pg Normal 27.0-32.0 [facility] Comment on above: Performed By: #### L 500.2500, L100.0100, L501.4021 ####[facility] [address] [place], [address] MCHC (RBC) [Mass/Vol] 36.5 g/dL High 32-36 [facility] Comment on above: Performed By: #### L 500.2500, L100.0100, L501.4021 ####[facility] [address] [place], [address] MCV (RBC) [Entitic vol] 81.7 fL Normal 80-94 [facility] Comment on above: Performed By: #### L 500.2500, L100.0100, L501.4021 ####[facility] [address] [place], [address] Monocytes/100 WBC (Bld) 9.7 % Normal 0-10 [facility] Comment on above: Performed By: #### L 500.2500, L100.0100, L501.4021 ####[facility] [address] [place], [address] Neutrophils/100 WBC (Bld) 50.8 % Normal 47-70 [facility] Comment on above: Performed By: #### L 500.2500, L100.0100, L501.4021 ####[facility] [address] [place], [address] Nucleated RBC (Bld) [#/Vol] 0 10*3/uL Normal 0-5 [facility] Comment on above: Performed By: #### L 500.2500, L100.0100, L501.4021 ####[facility] [address] [place], [address] Platelet mean volume (Bld) [Entitic vol] 9.4 fL Normal 6.2-12.0 [facility] Comment on above: Performed By: #### L 500.2500, L100.0100, L501.4021 ####[facility] [address] [place], [address] Platelets (Bld) [#/Vol] 177 10*3/uL Normal 150-450 [facility] Comment on above: Performed By: #### L 500.2500, L100.0100, L501.4021 ####[facility] [address] [place], [address] RBC (Bld) [#/Vol] 5.26 10*6/uL Normal 4.6-6.2 [facility] Comment on above: Performed By: #### L 500.2500, L100.0100, L501.4021 ####[facility] [address] [place], [address] RDW SD 35.8 fl Normal 35.1-43.9 [facility] Comment on above: Performed By: #### L 500.2500, L100.0100, L501.4021 ####[facility] [address] [place], [address] WBC (Bld) [#/Vol] 6.0 10*3/uL Normal 4.4-11.0 [facility] Comment on above: Performed By: #### L 500.2500, L100.0100, L501.4021 ####[facility] [address] [place], [address] Calculated very low density lipoprotein (VLDL) cholesterol measurementOrdered By: Amy Levi on 05-28-2024 VLDL Cholesterol 10 mg/dL 5-40 [facility] Carbon dioxide, total [Moles /volume] in Central venous bloodOrdered By: Amy Levi on 05-28-2024 CO2 [Moles/Vol] 25.1 mmol/L Normal 21.0-32.0 [facility] Comment on above: Performed By: #### L 501.5200, L506.1001, L500.4100, L501.9985, L100.0100, L500.4050, L501.9520, L501.9910 #### [facility] [address] [place], [address] Chest 1 View (Portable)on Chest 1 View (Portable) [facility] Imaging Services [address] [place], [place] [address] Chest 1 View (Portable) MR#: [id number] Acct: [id number] Name: JOSE CARVAJAL Rep #: [id number] : 1950 M 73 From: Fabian Contreras MD PCP: Dr. Amy Levi MD Status: REG ER Study: Chest 1 View (Portable) Date of Exam: 05/28/24 Exam# [id number] Ordering Dr: Sumit Granados MD PROCEDURE: CHEST 1 VIEW (PORTABLE) REASON FOR EXAM: Chest pain TECHNIQUE: Frontal view of the chest. 2 frontal images to include the entire chest COMPARISON: 09/30/2022 FINDINGS: The lungs are clear. Pulmonary vascularity appears within limits. The cardiac and mediastinal contours appear within limits. Ectatic thoracic aorta again noted. Surgical clips are again seen at the left lower chest/left upper quadrant. Old left-sided rib fractures. RAD/Chest 1 View (Portable) IMPRESSION: No evidence of acute disease. Reading Location: [facility] CC: Dr. Sumit Granados MD; Dr. Amy Levi MD [employer] Emissions Technician: Signed Normal [facility] Chloride assayOrdered By: Amna Levi on 05-28-2024 Chloride [Moles/Vol] 101 mmol/L Normal 98-108 [facility] Comment on above: Performed By: #### L 501.5200, L506.1001, L500.4100, L501.9985, L100.0100, L500.4050, L501.9520, L501.9910 #### [facility] [address] [place], [place], [id number] Comprehensive Metabolic Prof ilon 05-28-2024 ALK PHOS 63 U/L Normal 40-129 [facility] Comment on above: Performed By: #### L 501.5200, L506.1001, L500.4100, L501.9985, L100.0100, L500.4050, L501.9520, L501.9910 #### [facility] [address] [place], [place], [id number] BUN/CRE 12.7 RATIO Normal 10-20 [facility] Comment on above: Performed By: #### L 501.5200, L506.1001, L500.4100, L501.9985, L100.0100, L500.4050, L501.9520, L501.9910 #### [facility] [address] [place], [place], [id number] GAP 11 Normal 5-15 [facility] Comment on above: Performed By: #### L 501.5200, L506.1001, L500.4100, L501.9985, L100.0100, L500.4050, L501.9520, L501.9910 #### [facility] [address] [place], [place], [phone] GFR/1.73 sq M.predicted among non-blacks MDRD (S/P/Bld) [Vol rate/Area] 95 mL/min/{1.73_m2} Normal >60 [facility] Comment on above: Result Comment: mL/m in/1.73m2 CKD-EPI Creatinine Equation (2020) Performed By: #### L 501.5200, L506.1001, L500.4100, L501.9985, L100.0100, L500.4050, L501.9520, L501.9910 #### [facility] [address] [place], [place], [address] T PROT 7.3 g/dL Normal 5.9-8.4 [facility] Comment on above: Performed By: #### L 501.5200, L506.1001, L500.4100, L501.9985, L100.0100, L500.4050, L501.9520, L501.9910 #### [facility] [address] [place], [place], [address] Comprehensive Metabolic Prof ilOrdered By: Amy Levi on 05-28-2024 AST [Catalytic activity/Vol] 23 U/L Normal <=37 [facility] Comment on above: Performed By: #### L 501.5200, L506.1001, L500.4100, L501.9985, L100.0100, L500.4050, L501.9520, L501.9910 #### [facility] [address] [place], [place], [address] Emergency Department Summary on 05-28-2024 Emergency Department Summary [facility] Medical Records Department [address] [place] [address] Emergency Department Summary 05/28/24 MR#: [id number] Acct: [id number] Name: JOSE CARVAJAL Rep #: [id number] : 1950 73 From: Sumit Granados MD PCP: Dr. Amy Levi MD Status:REG ER Location: ED HPI History of Present Illness Chief Complaint: Chest Pain Informant: patient Narrative Narrative: 73-year-old male states he has been having left upper chest discomfort with some tingling in his left arm that has been constant for the past 2 days. He states he thinks it may be related to a doughnut pastry that he ate which is very unusual for him. He states he has a dry mouth, and states that multiple times. He states that he tries to drink at least a gallon of water a day, and he states he urinates quite a bit every day because of that and the fact that he is on hydrochlorothiazide. He is not a diabetic that he knows of. He had a checkup with his doctor the other day, and he has some fasting labs for tomorrow morning, but decided to come to have this evaluated tonight. Denies any nausea or vomiting. He states he walks a couple miles a day and it did not bother him when he was walking but when he lies down it seems to be worse. He denies dyspnea, lightheadedness, palpitations, fevers or chills or cough. States he was concerned about his blood pressure, checking it a couple times it was in the 130s and at highest it was in the 150s. [facility] Medical History Uncontrolled hypertension New onset headache Frequent headaches Schwannoma of nerve of chest Irritation of right eye Arthritis Essential hypertension Home Medications ???Medication ???Instructions ???Recorded ???Last Taken ???Type ascorbic acid (vitamin C) 1,000 mg 2 g PO DAILY 06/01/20 Unknown Hi story tablet multivitamin,tx-iron-m inerals 1 tab PO DAILY 06/01/20 Unknown Hi story (Complete Multivitamin tablet) turmeric 100 mg-ximena 150 1 cap PO DAILY 10/31/20 Unknown Hi story mg-olive 50 mg-oreg 150 mg-capryl capsule cholecalciferol (vitamin D3) 50 50 mcg PO DAILY 03/04/22 Unknown H istory mcg (2,000 unit) capsule amlodipine 10 mg tablet 10 mg PO DAILY #90 tabs 10/29/23 0 12/09/23 Rx hydrochlorothiazide 25 mg tablet 12.5 mg (1/2 x 25 mg) PO DAILY #90 12/01/23 12/09/23 Rx tabs lisinopril 40 mg tablet 40 mg PO DAILY #90 tabs 12/22/23 U nknown Rx Allergy/AdvReac Type Severity Reaction Status Date / Time No Known Allergies Allergy Verified 05/27/24 23:39 Family History Other CVA (cerebral vascular accident) Diabetes Hypertension Surgical History History of appendectomy History of ankle surgery Cholecystectomy planned Social History Smoking Status: Never smoker alcohol intake: never substance use type: does not use what type of physical activity do you participate in: weight training and other details: active lifestyle frequency: daily ROS ROS ED Constitutional Constitutional ED: Reports fatigue; Denies chills or fever(s) Eyes Eyes: Denies change in vision or diplopia ENT ENT ED: Denies rhinorrhea or sore throat Cardiovascular Cardiovascular: Reports chest pain; Denies palpitations Respiratory/Chest Respiratory/Chest: Denies cough or dyspnea Gastrointestinal Gastrointestinal: Denies abdominal pain, diarrhea, nausea or vomiting Genitourinary Genitourinary ED: Denies dysuria or hematuria Musculoskeletal Musculoskeletal: Denies back pain or neck pain Integumentary Denies abscess or rash Neurologic Neurologic: Reports paresthesias LUE; Denies headache(s) or weakness EXAM Physical Exam Const Vital Signs: 05/27/24 23:39 05/27/24 23:39 05/28/24 00:11 Temperature 98.7 F Temperature Source Oral Pulse Rate 70 Respiratory Rate 17 Respiratory Effort Normal Non-Labored Blood Pressure 165/86 H Blood Pressure Mean 112 Pulse Ox 98 Oxygen Delivery Method Room Air Room Air 05/28/24 00:39 05/28/24 01:00 Temperature Temperature Source Pulse Rate 62 62 Respiratory Rate 16 13 Respiratory Effort Blood Pressure 148/86 H 143/76 H Blood Pressure Mean 106 98 Pulse Ox 99 99 Oxygen Delivery Method Room Air Room Air Positive well nourished and well developed Constitutional Narrative: Well-appearing conversive in full sentences General Appearance ED: well developed and NAD HEENT Reports moist mucous membranes normocephalic and atraumatic Eyes PERRL and EOMs intact bilaterally Neck full ROM and supple Resp normal respiratory effort and clear to ausc (more content not included)... Normal [facility] Eosinophil percentageOrdered By: Amy Levi on 05-28-2024 Eosinophils/100 WBC (Bld) 1.5 % Normal 0-5 [facility] Comment on above: Performed By: #### L 501.1390, L506.1001, L500.4100, L501.9985, L100.0100, L500.4050, L501.9520, L501.9910 #### [facility] [address] [place], [address] Erythrocyte distribution wid th ratioOrdered By: Amy Levi on 05-28-2024 Erythrocyte distribution width (RBC) [Ratio] 12.2 % Normal 11.6-14.6 [facility] Comment on above: Performed By: #### L 501.5200, L506.1001, L500.4100, L501.9985, L100.0100, L500.4050, L501.9520, L501.9910 #### [facility] [address] [place], [address] Erythrocyte distribution wid th standard deviationOrdered By: Amy Levi on 05-28-2024 Erythrocyte distribution width (RBC) [Entitic vol] 37.1 fL 35.1-43.9 [facility] GFR/1.73 sq M.predicted sherie g non-blacks MDRD (S/P/Bld) [Vol rate/Area]Ordered By: Amy Levi on 05-28-2024 Estimated GFR (MDRD) Non-Af Amer 95 >60 [facility] Comment on above: mL/min/1.73m2 CKD-EP I Creatinine Equation (2020) Hemoglobin A1c percentageOrd ered By: Amy Levi on 05-28-2024 HbA1c (Bld) [Mass fraction] 5.6 % Low <=5.6 [facility] Comment on above: Performed By: #### L 501.5200, L506.1001, L500.4100, L501.9985, L100.0100, L500.4050, L501.9520, L501.9910 #### [facility] [address] [place], [address] Hemoglobin measurementOrdere d By: Amy Levi on 05-28-2024 Hemoglobin (Bld) [Mass/Vol] 16.4 g/dL Normal 13.0-16.5 [facility] Comment on above: Performed By: #### L 501.5200, L506.1001, L500.4100, L501.9985, L100.0100, L500.4050, L501.9520, L501.9910 #### [facility] [address] [place], [address] Immature granulocytes/100 WB C Auto (Bld)Ordered By: Amy Levi on 05-28-2024 Immature granulocytes/100 WBC (Bld) 0.300 % 0.0-0.9 [facility] Comment on above: IG% - Immature Granu locytes (promyelocytes, myelocytes and metamyelocytes) > 1% indicates that a LEFT SHIFT is Present. L499.0042on 05-28-2024 Trop T High Sen Normal <=22 [facility] Comment on above: Result Comment: Canc elled via OM: Order cancelled - Patient discharged Performed By: #### L 499.0042 #### [facility] [address] [place], [address] L499.0043on 05-28-2024 Trop T High Sen Normal <=22 [facility] Comment on above: Result Comment: Canc elled via OM: Order cancelled - Patient discharged Performed By: #### L 499.0043 ####[facility] [address] [place], [address] L501.4021on 05-28-2024 Trop T High Sen 11 ng/L Normal <=22 [facility] Comment on above: Performed By: #### L 500.2500, L100.0100, L501.4021 ####[facility] [address] [place], [address] L506.1001on 05-28-2024 Vitamin D 25-OH 44.9 ng/mL Normal 30-100 [facility] Comment on above: Result Comment: Mirella min D Status Deficiency: <20 ng/mL (50nmol/L) Insufficiency: 20-30 ng/mL (50-75 nmol/L) Sufficiency: 30-100 ng/mL (75-250 nmol/L) Toxicity: >100 ng/mL (>250 nmol/L) Performed By: #### L 501.5200, L506.1001, L500.4100, L501.9985, L100.0100, L500.4050, L501.9520, L501.9910 ####[facility] [address] [place], [address] LDL calc ser/plasOrdered By: Amy Levi on 05-28-2024 LDL Cholesterol, Calculated 132 mg/dL [facility] Comment on above: Cxnalhmsxe=028-824 m g/dL & Higher Howa=473 mg/dL or greater Lipid Profileon 05-28-2024 CHOL:HDL 4.46 Normal [facility] Comment on above: Performed By: #### L 501.5200, L506.1001, L500.4100, L501.9985, L100.0100, L500.4050, L501.9520, L501.9910 ####[facility] [address] [place], [place], [phone]) Cholesterol in LDL [Mass/Vol] 132 mg/dL Normal [facility] Comment on above: Result Comment: Bord kgwynm=033-695 mg/dL Higher Yxpe=318 mg/dL or greater Performed By: #### L 501.5200, L506.1001, L500.4100, L501.9985, L100.0100, L500.4050, L501.9520, L501.9910 ####[facility] [address] [place], [place], [phone]) Cholesterol in VLDL [Mass/Vol] 10 mg/dL Normal 5-40 [facility] Comment on above: Performed By: #### L 501.5200, L506.1001, L500.4100, L501.9985, L100.0100, L500.4050, L501.9520, L501.9910 ####[facility] [address] [place], [place], [phone] Lymphocytes Auto (Unsp spec) [#/Vol]Ordered By: Amy Levi on 05-28-2024 Lymphocytes (Bld) [#/Vol] 1.63 10*3/uL 0.83-4.51 [facility] MCV (mean corpuscular volume ) determinationOrdered By: Amy Levi on 05-28-2024 MCV (RBC) [Entitic vol] 83.8 fL Normal 80-94 [facility] Comment on above: Performed By: #### L 501.5200, L506.1001, L500.4100, L501.9985, L100.0100, L500.4050, L501.9520, L501.9910 #### [facility] [address] [place], [place], [phone] Magnesium measurement (mass/ volume)Ordered By: Amy Levi on 05-28-2024 Magnesium [Mass/Vol] 2.3 mg/dL High 1.5-2.2 [facility] Comment on above: Performed By: #### L 501.5200, L506.1001, L500.4100, L501.9985, L100.0100, L500.4050, L501.9520, L501.9910 #### [facility] [address] [place], [address] Mean corpuscular hemoglobin (MCH) determinationOrdered By: Amy Levi on 05-28-2024 MCH (RBC) [Entitic mass] 29.5 pg Normal 27.0-32.0 [facility] Comment on above: Performed By: #### L 501.5200, L506.1001, L500.4100, L501.9985, L100.0100, L500.4050, L501.9520, L501.9910 #### [facility] [address] [place], [place], [id number] Mean corpuscular hemoglobin concentration (MCHC) determinationOrdered By: Amy Levi on 05-28-2024 MCHC (RBC) [Mass/Vol] 35.2 g/dL Normal 32-36 [facility] Comment on above: Performed By: #### L 501.5200, L506.1001, L500.4100, L501.9985, L100.0100, L500.4050, L501.9520, L501.9910 #### [facility] [address] [place], [address] Mean platelet volume determi nationOrdered By: Amy Levi on 05-28-2024 Platelet mean volume (Bld) [Entitic vol] 10.0 fL Normal 6.2-12.0 [facility] Comment on above: Performed By: #### L 501.5200, L506.1001, L500.4100, L501.9985, L100.0100, L500.4050, L501.9520, L501.9910 #### [facility] [address] [place], [address] Monocyte percentageOrdered B y: Amy Levi on 05-28-2024 Monocytes/100 WBC (Bld) 9.2 % Normal 0-10 [facility] Comment on above: Performed By: #### L 501.5200, L506.1001, L500.4100, L501.9985, L100.0100, L500.4050, L501.9520, L501.9910 #### [facility] [address] [place], [address] Neutrophil percentageOrdered By: Amy Levi on 05-28-2024 Neutrophils/100 WBC (Bld) 60.6 % Normal 47-70 [facility] Comment on above: Performed By: #### L 501.5200, L506.1001, L500.4100, L501.9985, L100.0100, L500.4050, L501.9520, L501.9910 #### [facility] [address] [place], [address] Nucleated red blood cell per centageOrdered By: Amy Levi on 05-28-2024 Nucleated RBC/100 WBC (Bld) [Ratio] 0 % 0-5 [facility] PSA, total screeningOrdered By: Amy Levi on 05-28-2024 Prostate Specific Antigen Screen 1.19 ng/mL 0.02-4.00 [facility] Comment on above: This test was perfor med using the [employer] tPSA method. Measured values of a patient sample can vary depending on the testing procedure used. PSA values determined on patient samples by different testing procedures cannot be used interchangeably. If there is a change in PSA assays while monitoring therapy, sequential testing should be performed to confirm baseline values. PSA,Total - Annual Screenon 05-28-2024 PSA,TOT SCREEN 1.19 ng/mL Normal 0.02-4.00 [facility] Comment on above: Result Comment: This test was performed using the [employer] tPSA method. Measured values of a patient??sample can vary depending on the testing procedure used. PSA values determined on patient samples by different testing procedures cannot be used interchangeably. If there is a change in PSA assays while monitoring therapy, sequential testing should be performed to confirm baseline values. Performed By: #### L 501.5200, L506.1001, L500.4100, L501.9985, L100.0100, L500.4050, L501.9520, L501.9910 ####[facility] [address] [place], [place], [id number] Platelet countOrdered By: Amna Levi on 05-28-2024 Platelets (Bld) [#/Vol] 202 10*3/uL Normal 150-450 [facility] Comment on above: Performed By: #### L 501.5200, L506.1001, L500.4100, L501.9985, L100.0100, L500.4050, L501.9520, L501.9910 #### [facility] [address] [place], [place], [phone] Potassium measurement (mass/ volume)Ordered By: Amy Levi on 05-28-2024 Potassium [Moles/Vol] 3.7 mmol/L Normal 3.3-5.1 [facility] Comment on above: Performed By: #### L 501.5200, L506.1001, L500.4100, L501.9985, L100.0100, L500.4050, L501.9520, L501.9910 #### [facility] [address] [place], [address] Screening total cholesterol/ high density lipoprotein (HDL) cholesterol ratioOrdered By: Amy Levi on 05-28-2024 Cholesterol.total/Choles terol in HDL [Mass ratio] 4.46 {ratio} [facility] Serum creatinine measurement (mass/volume)Ordered By: Amy Levi on 05-28-2024 Creatinine [Mass/Vol] 0.79 mg/dL Normal 0.70-1.20 [facility] Comment on above: Performed By: #### L 501.5200, L506.1001, L500.4100, L501.9985, L100.0100, L500.4050, L501.9520, L501.9910 #### [facility] [address] [place], [address] Serum globulin measurementOr dered By: Amy Levi on 05-28-2024 Globulin (S) [Mass/Vol] 2.8 g/dL Normal 2.2-4.2 [facility] Comment on above: Performed By: #### L 501.5200, L506.1001, L500.4100, L501.9985, L100.0100, L500.4050, L501.9520, L501.9910 #### [facility] [address] [place], [address] Serum glucose measurement (m ass/volume)Ordered By: Amy Levi on 05-28-2024 Glucose [Mass/Vol] 94 mg/dL Normal 70-99 [facility] Comment on above: Performed By: #### L 501.5200, L506.1001, L500.4100, L501.9985, L100.0100, L500.4050, L501.9520, L501.9910 #### [facility] [address] [place], [address] Serum or plasma alanine webster otransferase (ALT) measurementOrdered By: Amy Levi on 05-28-2024 ALT [Catalytic activity/Vol] 19 U/L Normal <=46 [facility] Comment on above: Performed By: #### L 501.5200, L506.1001, L500.4100, L501.9985, L100.0100, L500.4050, L501.9520, L501.9910 #### [facility] [address] [place], [address] Serum or plasma albumin lizeth urement (mass/volume)Ordered By: Amy Levi on 05-28-2024 Albumin [Mass/Vol] 4.5 g/dL Normal 3.4-4.8 [facility] Comment on above: Performed By: #### L 501.5200, L506.1001, L500.4100, L501.9985, L100.0100, L500.4050, L501.9520, L501.9910 #### [facility] [address] [place], [address] Serum or plasma albumin/glob ulin mass ratioOrdered By: Amy Levi on 05-28-2024 Albumin/Globulin [Mass ratio] 1.6 {ratio} Normal 0.9-2.4 [facility] Comment on above: Performed By: #### L 501.5200, L506.1001, L500.4100, L501.9985, L100.0100, L500.4050, L501.9520, L501.9910 #### [facility] [address] [place], [address] Serum or plasma alkaline ashia sphatase measurementOrdered By: Amy Levi on 05-28-2024 ALP [Catalytic activity/Vol] 63 U/L 40-129 [facility] Serum or plasma calcium lizeth urement (mass/volume)Ordered By: Amy Levi on 05-28-2024 Calcium [Mass/Vol] 9.2 mg/dL Normal 7.6-11.0 [facility] Comment on above: Performed By: #### L 501.5200, L506.1001, L500.4100, L501.9985, L100.0100, L500.4050, L501.9520, L501.9910 #### [facility] [address] [place], [place], [id number] (611) Serum or plasma cholesterol in HDL measurement (mass/volume)Ordered By: Amy Levi on 05-28-2024 Cholesterol in HDL [Mass/Vol] 41 mg/dL Normal [facility] Comment on above: National Cholesterol Education Program (NCEP) guidelines:<40 mg/dL: Low HDL-cholesterol (major risk factor for CHD)>= 60 mg/dL: High HDL-cholesterol (negative risk factor for CHD)HDL-cholesterol is affected by a number of factors, e.g. smoking, exercise, hormones, sex and age. Result Comment: Shraddha onal Cholesterol Education Program (NCEP) guidelines: <40 mg/dL: Low HDL-cholesterol (major risk factor for CHD) >= 60 mg/dL: High HDL-cholesterol (negative risk factor for CHD) HDL-cholesterol is affected by a number of factors, e.g. smoking, exercise, hormones, sex and age. Performed By: #### L 501.5200, L506.1001, L500.4100, L501.9985, L100.0100, L500.4050, L501.9520, L501.9910 ####[facility] [address] [place], [address] Serum or plasma cholesterol measurement (mass/volume)Ordered By: Amy Levi on 05-28-2024 Cholesterol [Mass/Vol] 183 mg/dL Normal <=200 [facility] Comment on above: Cholesterol level, D esirable <200 mg/dLBorderline high cholesterol 200-239 mg/dLHigh cholesterol >=240 mg/dLRecommendations of the NCEP Adult Treatment Panel for the following risk-cutoff thresholds for the [place] population. Result Comment: Chol esterol level, Desirable <200 mg/dL Borderline high cholesterol 200-239 mg/dL High cholesterol >=240 mg/dL Recommendations of the NCEP Adult Treatment Panel for the following risk-cutoff thresholds for the [place] population. Performed By: #### L 501.5200, L506.1001, L500.4100, L501.9985, L100.0100, L500.4050, L501.9520, L501.9910 ####[facility] [address] [facility] [address] [place], [place], [phone] Serum or plasma urea nitroge n measurement (mass/volume)Ordered By: Amy Levi on 05-28-2024 Urea nitrogen [Mass/Vol] 10 mg/dL Normal 4-19 [facility] Comment on above: Performed By: #### L 501.5200, L506.1001, L500.4100, L501.9985, L100.0100, L500.4050, L501.9520, L501.9910 #### [facility] [address] [place], [place], [id number] Sodium levelOrdered By: Edna Levi on 05-28-2024 Sodium [Moles/Vol] 138 mmol/L Normal 133-145 [facility] Comment on above: Performed By: #### L 501.5200, L506.1001, L500.4100, L501.9985, L100.0100, L500.4050, L501.9520, L501.9910 #### [facility] [address] [place], [address] TSH DL <= 0.005 mIU/L QnOrde red By: Amy Levi on 05-28-2024 Thyroid Stimulating Hormone (TSH) 1.410 uIU/mL 0.300-4.200 [facility] Thyroid Stim Hormone (TSH)on 05-28-2024 TSH 1.410 uIU/mL Normal 0.300-4.200 [facility] Comment on above: Performed By: #### L 501.5200, L506.1001, L500.4100, L501.9985, L100.0100, L500.4050, L501.9520, L501.9910 #### [facility] [address] [place], [address] Total proteinOrdered By: Chel Levi on 05-28-2024 Protein [Mass/Vol] 7.3 g/dL 5.9-8.4 [facility] Triglycerides measurementOrd ered By: Amy Levi on 05-28-2024 Triglyceride [Mass/Vol] 52 mg/dL Normal [facility] Comment on above: The drugs N-Acetylcy steine and Metamizole may falsely depress this assay. Normal range: <150 mg/dLBorderline High: 150-199 mg/dLHigh: 200-499 mg/dLVery High: >500 mg/dL Result Comment: The drugs N-Acetylcysteine and Metamizole may falsely depress this assay. Normal range: <150 mg/dL Borderline High: 150-199 mg/dL High: 200-499 mg/dL Very High: >500 mg/dL Performed By: #### L 501.5200, L506.1001, L500.4100, L501.9985, L100.0100, L500.4050, L501.9520, L501.9910 ####[facility] [id number] [place], [address] Vitamin D, 25-hydroxyOrdered By: Amy Levi on 05-28-2024 Vitamin D 25-Hydroxy 44.9 ng/mL 30-100 [facility] Comment on above: Vitamin D StatusDefi ciency: <20 ng/mL (50nmol/L)Insufficiency: 20-30 ng/mL (50-75 nmol/L)Sufficiency: 30-100 ng/mL (75-250 nmol/L)Toxicity: >100 ng/mL (>250 nmol/L) White blood cell (WBC) count Ordered By: Amy Levi on 05-28-2024 WBC (Bld) [#/Vol] 6.0 10*3/uL Normal 4.4-11.0 [facility] Comment on above: Performed By: #### L 501.5200, L506.1001, L500.4100, L501.9985, L100.0100, L500.4050, L501.9520, L501.9910 #### [facility] [address] [place], [address] Absolute neutrophil countOrd ered By: Sumit Granados on 05-27-2024 Neutrophils (Bld) [#/Vol] 3.0 10*3/uL 2.0-7.7 [facility] Anion gap in Serum or Plasma Ordered By: Sumit Granados on 05-27-2024 Anion gap [Moles/Vol] 14 mmol/L 5-15 [facility] BUN/creatinine ratioOrdered By: Sumit Granados on 05-27-2024 Urea nitrogen/Creatinine [Mass ratio] 15.2 mg/mg 10-20 [facility] Basophil percentageOrdered B y: Sumit Granados on 05-27-2024 Basophils/100 WBC (Bld) 0.8 % 0-1 [facility] Carbon dioxide, total [Moles /volume] in Central venous bloodOrdered By: Sumit Granados on 05-27-2024 CO2 [Moles/Vol] 21.6 mmol/L 21.0-32.0 [facility] Chloride assayOrdered By: Jimbo Granados on 05-27-2024 Chloride [Moles/Vol] 101 mmol/L 98-108 [facility] Eosinophil percentageOrdered By: Sumit Granados on 05-27-2024 Eosinophils/100 WBC (Bld) 2.2 % 0-5 [facility] Erythrocyte distribution wid th ratioOrdered By: Sumit Granados on 05-27-2024 Erythrocyte distribution width (RBC) [Ratio] 12.0 % 11.6-14.6 [facility] Erythrocyte distribution wid th standard deviationOrdered By: Sumit Granados on 05-27-2024 Erythrocyte distribution width (RBC) [Entitic vol] 35.8 fL 35.1-43.9 [facility] Estimation of creatinine harvey aranceOrdered By: Sumit Granados on 05-27-2024 Estimated Creatinine Clearance Calc 106.73 ml/min 50-250 [facility] GFR/1.73 sq M.predicted sherie g non-blacks MDRD (S/P/Bld) [Vol rate/Area]Ordered By: Sumit Granados on 05-27-2024 Estimated GFR (MDRD) Non-Af Amer 95 >60 [facility] Comment on above: mL/min/1.73m2 CKD-EP I Creatinine Equation (2020) Hematocrit Auto (Bld) [Volum e fraction]Ordered By: Sumit Granados on 05-27-2024 Hematocrit (Bld) [Volume fraction] 43.0 % 40-54 [facility] Hemoglobin measurementOrdere d By: Sumit Granados on 05-27-2024 Hemoglobin (Bld) [Mass/Vol] 15.7 g/dL 13.0-16.5 [facility] Immature granulocytes/100 WB C Auto (Bld)Ordered By: Sumit Granados on 05-27-2024 Immature granulocytes/100 WBC (Bld) 0.200 % 0.0-0.9 [facility] Comment on above: IG% - Immature Granu locytes (promyelocytes, myelocytes and metamyelocytes) > 1% indicates that a LEFT SHIFT is Present. Lymphocytes Auto (Unsp spec) [#/Vol]Ordered By: Sumit Granados on 05-27-2024 Lymphocytes (Bld) [#/Vol] 2.17 10*3/uL 0.83-4.51 [facility] Lymphocytes/100 WBC Auto (Un sp spec)Ordered By: Sumit Granados on 05-27-2024 Lymphocytes/100 WBC (Bld) 36.3 % 19-41 [facility] MCV (mean corpuscular volume ) determinationOrdered By: Sumit Granados on 05-27-2024 MCV (RBC) [Entitic vol] 81.7 fL 80-94 [facility] Mean corpuscular hemoglobin (MCH) determinationOrdered By: Sumit Granados on 05-27-2024 MCH (RBC) [Entitic mass] 29.8 pg 27.0-32.0 [facility] Mean corpuscular hemoglobin concentration (MCHC) determinationOrdered By: Sumit Granados on 05-27-2024 MCHC (RBC) [Mass/Vol] 36.5 g/dL High 32-36 [facility] Mean platelet volume determi nationOrdered By: Sumit Granados on 05-27-2024 Platelet mean volume (Bld) [Entitic vol] 9.4 fL 6.2-12.0 [facility] Monocyte percentageOrdered B y: Sumit Granados on 05-27-2024 Monocytes/100 WBC (Bld) 9.7 % 0-10 [facility] Neutrophil percentageOrdered By: Sumit Granados on 05-27-2024 Neutrophils/100 WBC (Bld) 50.8 % 47-70 [facility] No Panel InformationOrdered By: Sumit Granados on 05-27-2024 Troponin T High Sensitivity 11 ng/L <22 [facility] Nucleated red blood cell per centageOrdered By: Sumit Granados on 05-27-2024 Nucleated RBC/100 WBC (Bld) [Ratio] 0 % 0-5 [facility] Platelet countOrdered By: Jimbo Granados on 05-27-2024 Platelets (Bld) [#/Vol] 177 10*3/uL 150-450 [facility] Potassium (Unsp spec) [Mass/ Vol]Ordered By: Sumit Granados on 05-27-2024 Potassium [Moles/Vol] 3.5 mmol/L 3.3-5.1 [facility] RBC Auto (Bld) [#/Vol]Ordere d By: Sumit Granados on 05-27-2024 RBC (Bld) [#/Vol] 5.26 10*6/uL 4.6-6.2 [facility] Serum creatinine measurement (mass/volume)Ordered By: Sumit Granados on 05-27-2024 Creatinine [Mass/Vol] 0.78 mg/dL 0.70-1.20 [facility] Serum glucose measurement (m ass/volume)Ordered By: Sumit Granados on 05-27-2024 Glucose [Mass/Vol] 91 mg/dL 70-99 [facility] Serum or plasma calcium lizeth urement (mass/volume)Ordered By: Sumit Granados on 05-27-2024 Calcium [Mass/Vol] 9.1 mg/dL 7.6-11.0 [facility] Serum or plasma urea nitroge n measurement (mass/volume)Ordered By: Sumit Granados on 05-27-2024 Urea nitrogen [Mass/Vol] 12 mg/dL 4-19 [facility] Sodium levelOrdered By: Christian Granados on 05-27-2024 Sodium [Moles/Vol] 137 mmol/L 133-145 [facility] White blood cell (WBC) count Ordered By: Sumit Granados on 05-27-2024 WBC (Bld) [#/Vol] 6.0 10*3/uL 4.4-11.0 [facility] MR/BMS.IMBon 05-24-2024 MR/BMS.B [facility] [address] [place] [address] OFFICE VISIT Date of Service: 05/24/24 MR#: [id number] Acct: [id number] Name: JOSE CARVAJAL Rep #: [id number] : 1950 Provider: Dr. 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 Required: No Accompanied by: Self Is patient in pain?: Yes (R ankle pain ) Pain scale (1-10): 3 Allergies No Known Allergies Allergy (Verified 05/24/24 08:19) Medications ???Medication ???Instructions ???Recorded ???Confirmed ???Type ascorbic acid (vitamin C) 1,000 mg 2 g PO DAILY 06/01/20 05/24/24 H istory tablet multivitamin,tx-iron-m inerals 1 tab PO DAILY 06/01/20 05/24/24 H istory (Complete Multivitamin tablet) turmeric 100 mg-ximena 150 1 cap PO DAILY 10/31/20 05/24/24 H istory mg-olive 50 mg-oreg 150 mg-capryl capsule cholecalciferol (vitamin D3) 50 50 mcg PO DAILY 03/04/22 05/24/24 History mcg (2,000 unit) capsule amlodipine 10 mg tablet 10 mg PO DAILY #90 tabs 10/29/23 0 05/24/24 Rx hydrochlorothiazide 25 mg tablet 12.5 mg (1/2 x 25 mg) PO DAILY #90 12/01/23 05/24/24 Rx tabs lisinopril 40 mg tablet 40 mg PO DAILY #90 tabs 12/22/23 0 05/24/24 Rx Have you fallen in the past year?: No PFSH Medical History Uncontrolled hypertension New onset headache Frequent headaches Schwannoma of nerve of chest Irritation of right eye Arthritis Essential hypertension Surgical History History of appendectomy History of ankle surgery Cholecystectomy planned Family History Other CVA (cerebral vascular accident) Diabetes Hypertension Social History Smoking Status: Never smoker alcohol intake: never substance use type: does not use what type of physical activity do you participate in: weight training and other details: active lifestyle frequency: daily HPI HPI Chief Complaint: 5 M FU Details: JOSE CARVAJAL, is a 73 M who presents to the office today for 6-month follow-up. 73-year-old gentleman with hypertension, on amlodipine 10 mg daily, HCTZ 25 mg daily which she is now taking 12.5 daily, and lisinopril 40 mg daily. Overall has been doing actually quite well. He still has neck pain and some back pain. Seemingly much more stable at this point. He also want to review his MRIs that were done last fall that included CTA, MRI brain. This shows mild age-related atrophic changes, small deep white matter changes, consistent with his hypertension. We reviewed those in some detail. Otherwise is feeling well. Maintaining good level of physical activity. Still similar problems in the past, in regards to his ankle and ankle pain. It is somewhat limiting at times but he has well adapted to that over the years. He is not having chest pain, chest tightness, shortness of breath wheeze cough or congestion. No fever or chills. No nausea or vomiting. Appetites been stable. Overall continue to try and eat a good quality diet. Review of systems per chart. Physical exam. Vital signs on chart. PERRLA. Sclera are clear. TMs are unremarkable with normal light reflexes. Canals are unremarkable. Posterior pharynx is unremarkable. Good dentition. No cervical or supraclavicular lymph nodes enlarged or tender. No clear thyromegaly. No thyroid nodules readily palpable. Lungs are without wheeze, rhonchi, rales. No E/A changes are heard. Heart is regular. Not tachycardic. No clear murmur, rub, or gallop is identified. The abdomen is soft. Bowel sounds are present. Nontender nondistended abdomen. No clear palpable masses in the abdomen. No significant leg edema. Cranial nerve examination 2 through 12 are grossly unremarkable nonlateralizing. No obvious rashes. ROS Const Constitutional: No body ache, chills, excessive sweating, fatigue, fever(s), frequent falls, headache(s), snoring, weakness or change in appetite Eyes Eyes: No blurry vision, change in vision, eye pain or Light sensitivity ENT ENT: No abnormal hearing, ear or mastoid pain, tinnitus, nasal congestion, headache(s), neck pain or sore throat Resp Respiratory: No cough, shortness of breath, snor (more content not included)... Normal [facility] Absolute lymphocyte countOrd ered By: Amy Levi on 03-20-2023 Lymphocytes Auto (Unsp spec) [#/Vol] 1.59 10*3/uL 0.83-4.51 [facility] Basophil percentageOrdered B y: Amy Levi on 03-20-2023 Basophils/100 WBC (Bld) 1.4 % 0-1 [facility] Bilirubin [Mass/Vol] 0.70 mg/dL 0.20-1.00 [facility] Comment on above: For patients on eltr ombopag therapy, use of Dimension [place] TBIL is not recommended. Chloride [Moles/Vol] 106 mmol/L 98-107 [facility] Cholesterol [Mass/Vol] 164 mg/dL <200 [facility] Comment on above: <200 mg/dL Desirable 200-240 mg/dL Borderline >240 mg/dL High Risk Eosinophils/100 WBC (Bld) 3.3 % 0-5 [facility] Glucose [Mass/Vol] 103 mg/dL 74-106 [facility] Comment on above: Fasting Glucose resu lt from 100 to 125 mg/dL suggests IMPAIRED HOMEOSTASIS per A.D.A. criteria. Neutrophils (Bld) [#/Vol] 2.0 10*3/uL 2.0-7.7 [facility] Neutrophils/100 WBC (Bld) 47.6 % 47-70 [facility] Potassium [Moles/Vol] 3.5 mmol/L 3.5-5.1 [facility] Protein [Mass/Vol] 7.4 g/dL 6.4-8.2 [facility] Sodium [Moles/Vol] 139 mmol/L 136-145 [facility] Triglyceride [Mass/Vol] 90 mg/dL <199 [facility] Comment on above: The drugs N-Acetylcy steine and Metamizole may falsely depress this assay.Serum Triglycerides Reference Interval Normal <150 mg/dL Borderline high 150 - 199 mg/dL High 200 - 499 mg/dL Very High > or = 500 mg/dL WBC (Bld) [#/Vol] 4.2 10*3/uL 4.4-11.0 [facility] Blood erythrocytes count (nu mber/volume)Ordered By: Amy Levi on 12-28-2023 RBC (Bld) [#/Vol] 5.55 10*6/uL 4.6-6.2 [facility] Blood hemoglobin measurement (mass/volume)Ordered By: Amy Levi on 03-20-2023 Hemoglobin (Bld) [Mass/Vol] 16.3 g/dL 13.0-16.5 [facility] Blood lymphocytes/100 leukoc ytesOrdered By: Amy Levi on 03-20-2023 Lymphocytes/100 WBC (Bld) 37.9 % 19-41 [facility] Blood monocytes/100 leukocyt esOrdered By: Amy Levi on 03-20-2023 Monocytes/100 WBC (Bld) 8.8 % 0-10 [facility] Blood platelet mean volumeOr dered By: Amy Levi on 03-20-2023 Platelet mean volume (Bld) [Entitic vol] 9.9 fL 6.2-12.0 [facility] Determination of erythrocyte mean corpuscular volume (MCV)Ordered By: Amy Levi on 03-20-2023 MCV (RBC) [Entitic vol] 84.9 fL 80-94 [facility] Hematocrit Auto (Bld) [Volum e fraction]Ordered By: Amy Levi on 03-20-2023 Hematocrit (Bld) [Volume fraction] 47.1 % 40-54 [facility] - Chemistry and C hemistry - challengeOrdered By: Amy Levi on 03-20-2023 ALP [Catalytic activity/Vol] 59 U/L 45-117 [facility] ALT [Catalytic activity/Vol] 22 U/L 16-61 [facility] CO2 [Moles/Vol] 26.0 mmol/L 21.0-32.0 [facility] Free T4 [Mass/Vol] 1.06 ng/dL 0.76-1.46 [facility] Globulin (S) [Mass/Vol] 3.4 g/dL 2.2-4.2 [facility] Urea nitrogen/Creatinine [Mass ratio] 12.2 mg/mg 10-20 [facility] - Hematology and Cell countsOrdered By: Amy Levi on 03-20-2023 Erythrocyte distribution width (RBC) [Entitic vol] 37.2 fL 35.1-43.9 [facility] Erythrocyte distribution width (RBC) [Ratio] 12.1 % 11.6-14.6 [facility] Immature granulocytes/100 WBC (Bld) 1.000 % 0.0-0.9 [facility] Comment on above: IG% - Immature Granu locytes (promyelocytes, myelocytes and metamyelocytes) > 1% indicates that a LEFT SHIFT is Present. MCH (RBC) [Entitic mass] 29.4 pg 27.0-32.0 [facility] Nucleated RBC/100 WBC (Bld) [Ratio] 0 % 0-5 [facility] MCHC Auto (RBC) [Mass/Vol]Or dered By: Amy Levi on 03-20-2023 MCHC (RBC) [Mass/Vol] 34.6 g/dL 32-36 [facility] No Panel InformationOrdered By: Amy Levi on 03-20-2023 Estimated GFR (MDRD) Amer 119 mL/min >60 [facility] Comment on above: GFR Calc Estimated GFR (MDRD) Non-Af Amer 98 mL/min >60 [facility] Comment on above: Non- GFR Calc Free Triiodothyronine (T3) pg/dL 2.9 pg/mL 2.18-3.98 [facility] Prostate Specific Antigen Screen 1.33 ng/mL 0.00-4.00 [facility] Comment on above: This test was perfor med using the TPSA assay method for the[employer] chemistry system. Values obtained with differentassay methods cannot be used interchangably.When changing PSA assays in the course of monitoring apatient, additional sequential testing should be carriedout to confirm baseline values. Thyroid Stimulating Hormone (TSH) 0.97 uIU/mL 0.358-3.74 [facility] Vitamin D 25-Hydroxy 60.9 ng/mL [facility] Comment on above: Vitamin D 25(OH) Sta tus Range Deficiency <20 ng/mL (50nmol/L) Insufficiency 20 - 30 ng/mL (50 - 75 nmol/L) Sufficiency 30 - 100 ng/mL (75 - 250 nmol/L) Toxicity >100 ng/mL (>250 nmol/L) Platelets bldOrdered By: Chel Levi on 03-20-2023 Platelets (Bld) [#/Vol] 198 10*3/uL 150-450 [facility] Serum or plasma albumin lizeth urement (mass/volume)Ordered By: Amy Levi on 03-20-2023 Albumin [Mass/Vol] 4.0 g/dL 3.2-5.0 [facility] Serum or plasma albumin/glob ulin mass ratioOrdered By: Amy Levi on 03-20-2023 Albumin/Globulin [Mass ratio] 1.2 {ratio} 0.9-2.4 [facility] Serum or plasma calcium lizeth urement (mass/volume)Ordered By: Amy Levi on 03-20-2023 Calcium [Mass/Vol] 8.7 mg/dL 8.5-10.1 [facility] Serum or plasma cholesterol in HDL measurement (mass/volume)Ordered By: Amy Levi on 03-20-2023 Cholesterol in HDL [Mass/Vol] 38 mg/dL >40 [facility] Comment on above: The drugs N-Acetylcy steine and Metamizole may falsely depress this assay. Reference Range HDL <40 mg/dL Low HDL Cholesterol HDL >or= 60 mg/dL High HDL Cholesterol Serum or plasma cholesterol in VLDL measurement (mass/volume)Ordered By: Amy Levi on 03-20-2023 Cholesterol in VLDL [Mass/Vol] 18 mg/dL 5-40 [facility] Serum or plasma creatinine m easurement (mass/volume)Ordered By: Amy Levi on 03-20-2023 Creatinine [Mass/Vol] 0.82 mg/dL 0.70-1.30 [facility] Comment on above: The validity of the calculated GFR & GFRAA in patients over 70 years has not been determined. Clinical correlation is essential. Serum or plasma low density lipoprotein (LDL) cholesterol measurement (mass/volume)Ordered By: Amy Levi on 03-20-2023 Cholesterol in LDL [Mass/Vol] 108 mg/dL 0-130 [facility] Serum or plasma urea nitroge n measurement (mass/volume)Ordered By: Amy Levi on 03-20-2023 Urea nitrogen [Mass/Vol] 10 mg/dL 7-18 [facility] Thin prep Papanicolaou smear with manual screeningOrdered By: Amy Levi on 03-20-2023 Thin prep Papanicolaou smear with manual screening 18 U/L 15-37 [facility] Thin prep Papanicolaou smear with manual screening 7 5-15 [facility] Whole blood hemoglobin A1c/t otal hemoglobin ratio (mass fraction)Ordered By: Amy Levi on 03-20-2023 HbA1c (Bld) [Mass fraction] 5.2 % 3.8-5.6 [facility] Comment on above: Normal < 5.7 % Predi abetic 5.7 - 6.4 % Diabetic >or= 6.5 % Please note range changes. CORONAVIRUS PCR - [facility] 03-15-2021 SARS-CoV-2 (COVID-19) RNA CATHY+probe Ql (Unsp spec) Negative Normal NORMAL: NEGATIVE [facility] Comment on above: Performed By: #### [id number] #### [facility],[address] [place] [address] SEND TO IC? YES Normal [facility] Comment on above: Result Comment: RESU LTS FAXED TO INFECTION CONTROL. SARS-CoV-2 THIS TEST IS BEING USED UNDER THE FDA EUA PROCEDURE. THIS ASSAY HAS BEEN VALIDATED IN THE [facility] FOR USE WITH NASOPHARYNGEAL SPECIMENS IN [facility]. INTERPRETIVE DATA LABORATORY TEST RESULTS SHOULD [...] PUBLIC HEALTH AUTHORITIES. Performed By: #### [id number] #### [facility],[address] [place] [address] 11-29-2020 [facility] JOSE CARVAJAL ([id number]) 1950 Date Time Provider Department 11/29/20 AMY LEVI [facility] During your visit today, we recorded the following information about you: Jeannine Johnna [facility] 11/29/2020 10:20 AM Signed Patient requesting disk and report of 07/2017 xrays of foot/ankle. Will be in tomorrow to picker and packer. 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 [facility] Comment on above: Result Comment: Nega tive for This test was developed and its performance characteristics determined by [facility]'s [facility] [place]. This test has been authorized by FDA [...] developed and its performance characteristics determined by [facility] [place]. This test has been authorized by FDA [...] developed and its performance characteristics determined by [facility] [place]. This test has been authorized by FDA [...] 2019. 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 [...] The arch vessel branching pattern is normal .Residence Supervisor dimensions of the thoracic aorta are as [...] of the visualized organs. Gallbladder is not visualized.IMPRESSION: 1. Mildly dilated aortic root. The rest of the Thoracic aorta is normal in caliber. No acute aortic pathology identified.Transcripti onist: TONIA Transcribe Date/Time: Jul 23 2017 1:52PDictated by : TACHO MARTINEZ MDThis examination was interpreted and the report reviewed and electronically signed by: TACHO MARTINEZ MD on Jul 23 2017 2:02PM [id number] Normal [facility] Vital Signs Date Time Vital Sign Value Performing Clinician Faci lity 11-29-2024 08:25-0400 Body height 185.[address] Amy Levi MD Work Phone: [facility] 11-29-2024 08:25-0400 Body mass index (BMI) [Ratio] 29 kg/m2 Dr. Amy Levi MD Work Phone: [facility] 11-29-2024 08:25-0400 Body temperature 98.2 [degF] Dr. Amy Levi MD Work Phone: [facility] 11-29-2024 08:25-0400 Body weight 99.[address] Amy Levi MD Work Phone: [facility] 11-29-2024 08:25-0400 Diastolic blood pressure 81 mm[Hg] Dr. Amy Levi MD Work Phone: [facility] 11-29-2024 08:25-0400 Heart rate 70 /min Dr. Amy Levi MD Work Phone: [facility] 11-29-2024 08:25-0400 Respiratory rate 16 /min Dr. Amy Levi MD Work Phone: [facility] 11-29-2024 08:25-0400 SaO2% (BldA) [Mass fraction] 95 % Dr. Amy Levi MD Work Phone: [facility] 11-29-2024 08:25-0400 Systolic blood pressure 137 mm[Hg] Dr. Amy Levi MD Work Phone: [facility] 05-28-2024 01:32-0500 Body temperature 98 [degF] Dr. Amy Levi MD Work Phone: [facility] 05-28-2024 01:32-0500 Diastolic blood pressure 76 mm[Hg] Dr. Amy Levi MD Work Phone: [facility] 05-28-2024 01:32-0500 Heart rate 87 /min Dr. Amy Levi MD Work Phone: [facility] 05-28-2024 01:32-0500 Respiratory rate 18 /min Dr. Amy Levi MD Work Phone: [facility] 05-28-2024 01:32-0500 SaO2% (BldA) [Mass fraction] 99 % Dr. Amy Levi MD Work Phone: [facility] 05-28-2024 01:32-0500 Systolic blood pressure 143 mm[Hg] Dr. Amy Levi MD Work Phone: [facility] 05-27-2024 23:39-0500 Body height 185.[address] Amy Levi MD Work Phone: [facility] 05-27-2024 23:39-0500 Body mass index (BMI) [Ratio] 29.9 kg/m2 Dr. Amy Levi MD Work Phone: [facility] 05-27-2024 23:39-0500 Body weight 102.[address] Amy Levi MD Work Phone: [facility] 05-24-2024 08:34-0500 Body mass index (BMI) [Ratio] 29.9 kg/m2 Dr. Amy Levi MD Work Phone: [facility] 05-24-2024 08:34-0500 Body temperature 98 [degF] Dr. Amy Levi MD Work Phone: [facility] 05-24-2024 08:34-0500 Body weight 103.[address] Amy Levi MD Work Phone: [facility] 05-24-2024 08:34-0500 Diastolic blood pressure 75 mm[Hg] Dr. Amy Levi MD Work Phone: [facility] 05-24-2024 08:34-0500 Heart rate 71 /min Dr. Amy Levi MD Work Phone: [facility] 05-24-2024 08:34-0500 Respiratory rate 16 /min Dr. Amy Levi MD Work Phone: [facility] 05-24-2024 08:34-0500 SaO2% (BldA) [Mass fraction] 95 % Dr. Amy Levi MD Work Phone: [facility] [facility] 05-[facility]-2024 08:34-0500 Systolic blood pressure 139 mm[Hg] Dr. Amy Levi MD Work Phone: [facility] 03-10-2023 09:11-0500 Body height 185.[address] Amy Levi Work Phone: [facility] 03-10-2023 09:11-0500 Body mass index (BMI) [Ratio] 31.2 kg/m2 Dr. Amy Levi Work Phone: [facility] 03-10-2023 09:11-0500 Body temperature 97.6 [degF] Dr. Amy Levi Work Phone: [facility] 03-10-2023 09:11-0500 Body weight 107.[address] Amy Levi Work Phone: [facility] 03-10-2023 09:11-0500 Diastolic blood pressure 98 mm[Hg] Dr. Amy Levi Work Phone: [facility] 03-10-2023 09:11-0500 Heart rate 79 /min Dr. Amy Levi Work Phone: [facility] 03-10-2023 09:11-0500 Respiratory rate 16 /min Dr. Amy Levi Work Phone: [facility] 03-10-2023 09:11-0500 SaO2% (BldA) [Mass fraction] 91 % Dr. Amy Levi Work Phone: [facility] 03-10-2023 09:11-0500 Systolic blood pressure 169 mm[Hg] Dr. Amy Levi Work Phone: [facility] 09-30-2022 13:10-0400 Body height 185.42 cm [facility] 09-30-2022 13:10-0400 Body mass index (BMI) [Ratio] 31.1 kg/m2 [facility] 09-30-2022 13:10-0400 Body temperature 96.5 [degF] [facility] 09-30-2022 13:10-0400 Body weight 107.22 kg [facility] 09-30-2022 13:10-0400 Diastolic blood pressure 80 mm[Hg] [facility] 09-30-2022 13:10-0400 Heart rate 66 /min [facility] 09-30-2022 13:10-0400 Respiratory rate 16 /min [facility] 09-30-2022 13:10-0400 SaO2% (BldA) [Mass fraction] 97 % [facility] 09-30-2022 13:10-0400 Systolic blood pressure 143 mm[Hg] [facility] Encounters Encounter Date Encounter Type Care Provider Facility Start: 02-16-2025 ambulatory [facility] Facility :[facility] Start: 01-14-2025 End: 01-14-2025 ambulatory [facility] Facility:[facility] Start: 12-02-2024 End: 12-02-[address] Amy Levi MD Work Phone: -[facility] Start: 12-02-2024 End: 12-02-[address] Amy Levi MD -[facility] Start: 12-02-2024 End: 12-02-2024 [facility] Start: 11-29-2024 End: 11-29-[address] Amy Levi MD -[facility] Work Phone: Start: 11-29-2024 End: 11-29-[address] Amy Levi MD Work Phone: -[facility] Start: 05-28-2024 End: 05-28-[address] Amy Levi MD Work Phone: [facility] Work Phone: Start: 05-28-2024 End: 05-28-[address] Amy Levi MD -Laboratory, [facility] Start: 05-28-2024 End: 05-28-2024 [facility] Start: 05-27-2024 End: 05-28-2024 Emergency department patient visit Dr. Amy Levi MD Work Phone: -Emergency Department Work Phone: Start: 05-24-2024 End: 05-24-[address] Amy Levi MD -[facility] Work Phone: Start: 05-24-2024 End: 05-24-2024 ambulatory Amy Levi Facility:[facility] Start: 03-20-2023 End: 03-20-[address] Amy Levi Work Phone: [facility] Work Phone: Start: 03-20-2023 End: 03-20-[address] Amy Levi Work Phone: [facility]-Laboratory Work Phone: Start: 03-10-2023 End: 03-10-[address] mAy Levi Work Phone: [facility] Work Phone: Start: 09-30-2022 End: 09-30-2022 Emergency department patient visit [facility]Emergency Department Work Phone: Start: 03-15-2021 End: 03-15-[address] BETTY FOSTER [facility] Start: 06-12-2020 End: 06-12-[address] BETTY Ponce KRISTIN [facility] Start: 05-18-2020 End: 05-18-[address] BETTY Ponce KRISTIN [facility] Start: 07-23-2017 Ambulatory [facility] ([facility] Procedures Date Procedure Procedure Detail Performing Clinician Start: 12-02-2024 Vitamin D, 25-hydrox y measurement Dr. Amy Levi MD Work Phone: Comment on above: Vitamin D StatusDefi ciency: <20 ng/mL (50nmol/L)Insufficiency: 20-30 ng/mL (50-75 nmol/L)Sufficiency: 30-100 ng/mL (75-250 nmol/L)Toxicity: >100 ng/mL (>250 nmol/L) Start: 05-28-2024 Plain chest X-ray Dr. Dulce Levi MD Work Phone: Start: 09-30-2022 X-ray of chest posteroanterior view Plan of Treatment Date Care Activity Detail Author Start: 05-28-2024 [facility] Start: 05-28-2024 End: 05-28-2024 [facility] spital CBC W Auto Different ial panel - Blood [facility] CBC W Auto Different ial panel - Blood [facility] Comprehensive metabo lic 1999 panel - Serum or Plasma [facility] lic 1999 panel - Serum or Plasma [facility] Hemoglobin A1c/Hemog lobin.total in Blood [facility] Hemoglobin A1c/Hemog lobin.total in Blood [facility] Lipid 1996 panel - S tarik or Plasma [facility] Magnesium measurement [facility] Patient Education [facility] Work Phone: Patient referral [facility] Work Phone: Prostate specific an tigen measurement [facility] Thyroid stimulating hormone measurement [facility] Thyroid stimulating hormone measurement [facility] Vitamin D, 25-hydrox y measurement [facility] Vitamin D, 25-hydrox y measurement [facility] Payers Date Payer Category Payer Unknown [id number] 2024 Self-pay [id number] 2018 Medicare [id number] 1950 Unknown [id number] 2.16.84 [id number] 1950 Unknown [id number] 2.16.84 [id number] 1950 Unknown [id number] 2.16.84 [id number] Unknown [id number] 2.16.8 [id number] Unknown [id number] 2.16.8 [id number] Unknown [id number] 2.16.8 [id number] Unknown [id number] 2.16.8 [id number] Unknown [id number] 2.16.8 [id number] Unknown [id number] 2.16.8 [id number] Unknown [id number] 2.16.8 [id number] Social History Date Type Detail Facility Start: 09-30-2022 End: 03-10-2023 Tobacco smoking status NHIS Unknown if ever smoked [facility] Start: 10-31-2020 Occasional [facility] Start: 03-25-2020 None [facility] Start: 03-25-2020 Spouse/ Signif icant Other [facility] Start: 1950 Sex Assigned At Male [facility] Start: 05-27-2024 End: 05-27-2024 Tobacco smoking status NHIS Never smoked tobacco (finding) [facility] Start: 05-28-2024 End: 06-08-2024 Sex Male (finding) [facility] Sex [facility] Mental Status Date Assessment Result Facility 05-27-2024 Cognitive function Voice/Name [facility] Work Phone: 09-30-2022 Cognitive function Level Of Cons ciousness Awake;Alert;Appropriate [facility] Work Phone: Clinical Notes 11-20-2020 to 11-29-2024 Note Date & Type Note Facility 11-29-2024 Evaluation note Diagnosis Onset Date Resolution Elevated TSH acute November 8:17am Essential hypertension acute Se ptember 2024 8:17am [facility] Work Phone: 1(157) 460-116103-07-2025 Discharge summary [facility] Medical Records Department [address] [place] [address] Emergency Department Summary 05/28/24 MR#: [id number] Acct: [id number] Name: JOSE CARVAJAL Rep #:[id number] : 1950 73 From: Sumit Granados MD PCP: Dr. Amy Levi MD Status:REG ER Location: ED HPI History of Present Illness Chief Complaint: Chest Pain Informant: patient Narrative Narrative: 73-year-old male states he has been having left upper chest discomfort with sometingling in his left arm that has been constant for the past 2 days. He states he thinks it may be related to a doughnut pastry that he ate which is very unusual for him. He states he has a dry mouth, and states that multiple times. He states that he tries to drink at least a gallon of water a day, and he stateshe urinates quite a bit every day because of that and the fact that he is on hydrochlorothiazide. He is not a diabetic that he knows of. He had a checkup with his doctor the other day, and he has some fasting labs for tomorrow morning, but decided to come to have this evaluated tonight. Denies any nausea o r vomiting. He states he walks a couple miles a day and it did not bother him when he was walking but when he lies down it seems to be worse. He denies dyspnea, lightheadedness, palpitations, fevers or chills or cough. States he was concerned about his blood pressure, checking it a couple times it was in [id number] and at highest it was in the 150s. [facility] Medical History Uncontrolled hypertension New onset headache Frequent headaches Schwannoma of nerve of chest Irritation of right eye Arthritis Essential hypertension Home Medications ?Medication ?Instructions ?Recorded ?Last Taken ?Type ascorbic acid (vitamin C) 1,000 mg 2 g PO DAILY Unknown History tablet multivitamin,et-zqfn-fpnaoeag 1 tab PO DAILY 06/01/20 Unknown History (Complete Multivitamin tablet) turmeric 100 mg-ximena 150 1 cap PO DAILY 10/31/20 Unk nown History mg-olive 50 mg-oreg 150 mg-capryl capsule cholecalciferol (vitamin D3) 50 50 mcg PO DAILY Unknown History mcg (2,000 unit) capsule amlodipine 10 mg tablet 10 mg PO DAILY #90 tabs 10/1412/09/23 Rx hydrochlorothiazide 25 mg tablet 12.5 mg (1/2 x 25 mg) PO DAILY #90 12/01/23 12/09/23 Rx tabs lisinopril 40 mg tablet 40 mg PO DAILY #90 tabs 11/24 Unknown Rx Allergy/AdvReac Type Severity Reaction Status Date / Time No Known Allergies Allergy Verified 05/27/24 23:39 Family History Other CVA (cerebral vascular accident) Diabetes Hypertension Surgical History History of appendectomy History of ankle surgery Cholecystectomy planned Social History Smoking Status: Never smoker alcohol intake: never substance use type: does not use what type of physical activity do you participate in: weight training and otherdetails: active lifestyle frequency: daily ROS ROS ED Constitutional Constitutional ED: Reports fatigue; Denies chills or fever(s) Eyes Eyes: Denies change in vision or diplopia ENT ENT ED: Denies rhinorrhea or sore throat Cardiovascular Cardiovascular: Reports chest pain; Denies palpitations Respiratory/Chest Respiratory/Chest: Denies cough or dyspnea Gastrointestinal Gastrointestinal: Denies abdominal pain, diarrhea, nausea or vomiting Genitourinary Genitourinary ED: Denies dysuria or hematuria Musculoskeletal Musculoskeletal: Denies back pain or neck pain Integumentary Denies abscess or rash Neurologic Neurologic: Reports paresthesias LUE; Denies headache(s) or weakness EXAM Physical Exam Const Vital Signs: 05/27/24 23:39 05/27/24 23:39 05/28/24 00:11 Temperature 98.7 F Temperature Source Oral Pulse Rate 70 Respiratory Rate 17 Respiratory Effort Normal Non-Labored Blood Pressure 165/86 H Blood Pressure Mean 112 Pulse Ox 98 Oxygen Delivery Method Room Air Room Air 05/28/24 00:39 05/28/24 01:00 Temperature Temperature Source Pulse Rate 62 62 Respiratory Rate 16 13 Respiratory Effort Blood Pressure 148/86 H 143/76 H Blood Pressure Mean 106 98 Pulse Ox 99 99 Oxygen Delivery Method Room Air Room Air Positive well nourished and well developed Constitutional Narrative: Well-appearing conversive in full sentences General Appearance ED: well developed and NAD HEENT Reports moist mucous membranes normocephalic and atraumatic Eyes PERRL and EOMs intact bilaterally Neck full ROM and supple Resp normal respiratory effort and clear to auscultation bilaterally Cardio regular rate, regular rhythm and no murmurs Peripheral Pulses: pulses 2+ throughout GI non-tender and non-distended Auscultation: normoactive bowel sounds Palpation: soft Back/Spine no CVA tenderness General Back: other FROM Extremity normal to inspection General Extremety ED: Negative for edema, pulses abnormal or tenderness General Extremity: Negative for edema or pulses abnormal Neuro oriented x3, CN's II-XII intact bilaterally and no sensory deficits noted Sensorium / Orientation: awake and alert Motor Exam: strength 5/5 throughout Skin no rashes or lesions noted and no wounds Heart Score History: Moderately Suspicious ECG: Normal Age: >/= 65 years Risk Factors: 1 or 2 Risk Factors Troponin: Score: 4 MDM MDM MDM Narrative Medical decision making narrative: Patient's EKG is unremarkable, one-view portable chest x-ray is normal on my interpretation, and his basic labs including his blood sugar at 91 and troponin high-sensitivity at 11 are all within normal limits. Furthermore, he was given a GI cocktail and notes resolution of his chest discomfort and arm tingling. His blood pressure initially 165, now 143, he is very concerned about the numbers, I reassured him, this is not a measure of what is going on in his heart, could be due to anxiety about being in the emergency department, and is nonspecific. I advised him to recheck it when he is feeling well. He has better now and I do not think we need another measurement of troponin since he has had discomfort for 2 days. Advised to take Prilosec for 2 weeks, and follow-up with his doctor as an outpatient he is comfortable with that plan. Lab Data Attestation: I reviewed the patient's lab results. Labs: Laboratory Results - last 24 hr 05/27/24 23:46 WBC 6.0 RBC 5.26 Hgb 15.7 Hct 43.0 MCV 81.7 MCH 29.8 MCHC 36.5 H RDW Std Deviation 35.8 RDW Coeff of Gerardo 12.0 Plt Count 177 MPV 9.4 Immature Gran % (Auto) 0.200 Neut % (Auto) 50.8 Lymph % (Auto) 36.3 [place] % (Auto) 9.7 Eos % (Auto) 2.2 Baso % (Auto) 0.8 Absolute Neuts (auto) 3.0 Absolute Lymphs (auto) 2.17 Nucleated RBC % 0 Sodium 137 Potassium 3.5 Chloride 101 Carbon Dioxide 21.6 Anion Gap 14 BUN 12 Creatinine 0.78 Estim Creat Clear Calc 106.73 Est GFR (MDRD) Non-Af 95 BUN/Creatinine Ratio 15.2 Glucose 91 Calcium 9.1 Troponin T High Sens 11 Radiography Diagnostic Testing: Clinical Impression(s) from Imaging Studies Chest X-Ray 05/28/24 00:50 IMPRESSION: No evidence of acute disease. Reading Location: [facility] Rhythm Strip Rhythm Strip: Sinus Rhythm Rate: 68 Ectopy: None EKG Initial EKG: Attestation: I personally reviewed and interpreted this EKG as follows: Interpretation: Sinus Rhythm and No Acute Injury Pattern Comments: Nml axis & intervals; nml EKG Discharge Plan Triage Chief Complaint: Chest Pain ED Provider: Sumit Granados Dx/Rx/DC Orders Clinical Impression: Chest pain, non-cardiac Instructions: ED Chest Pain, Noncardiac Prescriptions: No Action Complete Multivitamin Tablet 1 tab PO DAILY ascorbic acid (vitamin C) 1,000 mg tablet 2 g PO DAILY ymuownyj-ckar-yxsvz-oreg-capry 100 mg-150 mg- 50 mg-150 mg capsule 1 cap PO DAILY cholecalciferol (vitamin D3) 50 mcg (2,000 unit) capsule 50 mcg PO DAILY amlodipine 10 mg tablet 10 mg PO DAILY Qty: 90 3RF hydrochlorothiazide 25 mg tablet 12.5 mg PO DAILY Qty: 90 1RF lisinopril 40 mg tablet 40 mg PO DAILY Qty: 90 3RF Primary Care Provider: Amy Levi Referrals: Amy Levi MD [Primary Care Provider] - 3-5 Days if not improving Activity Restrictions/Additional Instructions: Consider a 2-week course of Prilosec or Prevacid or Nexium Print Language: Turkish Disposition Disposition: Home, Self Care What to do if you have Problems For any increased pain, shortness of breath, bleeding, nausea or vomiting, chestpain, or any unexpected problems, contact your Primary Care Provider. Call [facility] ([phone]) or report tothe closest Emergency Room. Call 911 if necessary. 05/28/24 0131 Cosigner Signature (if applicable): CC: Dr. Amy Levi MD ~ Signed [facility]03-07-2025 Radiology Diagnostic study note [facility] Imaging Services [address] [place] [address] Chest 1 View (Portable) MR#: [id number] Acct: [id number] Name: JOSE CARVAJAL Rep #: [id number] : 1950 M 73 From: Larry Contreras MD PCP: Dr. Amy Levi MD Status: REG ER Study:Chest 1 View (Portable) Date of Exam: 05/28/24 Exam# [id number] Ordering Dr: Hernan Granados MD PROCEDURE: CHEST 1 VIEW (PORTABLE) REASON FOR EXAM: Chest pain TECHNIQUE: Frontal view of the chest. 2 frontal images to include the entire chest COMPARISON: 09/30/2022 FINDINGS: The lungs are clear. Pulmonary vascularity appears within limits. The cardiac and mediastinal contours appear within limits. Ectatic thoracic aorta again noted. Surgical clips are again seen at the left lower chest/left upper quadrant. Old left-sided rib fractures. RAD/Chest 1 View (Portable) IMPRESSION: No evidence of acute disease. Reading Location: [facility] CC: Dr. Sumit Granados MD; Dr. Amy Levi MD ~ [employer] Exhaust Emissions Technician: Signed [facility]03-03-2025 Evaluation note* Diagnosis Onset Date Resolution Status Admit Date Elevated TSH acute May 24 025 8:18am Essential hypertension acute [facility] 2024 8:18am Arthritis chronic May 24 8:18am [facility] Work Phone: 1([phone]) 608-291407-10-2023 Discharge summary Author Sumit Granados [facility] September 30, 2022 3:53pm Note Date/Time September 30, 2022 1:33 pm [facility] Medical Records Department [address] [place] [address] Emergency Department Summary 09/30/22 MR#: [id number] Acct: [id number] Name: JOSE CARVAJAL Rep #:[id number] : 1950 72 From: Sumit Granados MD PCP: Dr. Amy Levi MD Status:REG ER Location: ED HPI History of Present Illness Chief Complaint: Chest Other Informant: patient Narrative Narrative: Patient was weed eating on some large rocks outside of his property, he states that the weedeater became stuck, and then he lost his balance and fell against the rocks versus his left rib cage, has been having pain and trouble taking a deep breath without significant discomfort ever since. Hurts more to move. Notwinded/out of breath. He also states that he scraped the left side of his knee but it is not bothering him and he did not know until he took his jeans off thatwas injured. No other injuries. [facility] Medical History (Updated 09/30/22 @ 15:[address] Sumit Granados MD) Arthritis Essential hypertension Irritation of right eye Schwannoma of nerve of chest Home Medications ascorbic acid (vitamin C) 1,000 mg tablet 2 g PO DAILY 06/01/20 [History Last Taken Unknown] multivitamin,hk-cuow-dyhitodt (Complete Multivitamin tablet) 1 tab PO DAILY 06/01/20 [History Last Taken Unknown] tumeric 100 mg-ximena 150 mg-olive 50 mg-oreg 150 mg-caprylate capsule 1 cap PO DAILY 10/31/20 [History Last Taken Unknown] zinc 10 mg tablet 10 mg PO DAILY 04/19/21 [History Last Taken Unknown] amlodipine 10 mg tablet 10 mg PO DAILY #90 tabs 11/05/21 [Rx Last Taken Unknown] hydrochlorothiazide 25 mg tablet 12.5 mg (1/2 x 25 mg) PO DAILY #90 tabs 12/25/21 [Rx Last Taken Unknown] lisinopril 40 mg tablet 40 mg PO DAILY #90 tabs 12/27/21 [Rx Last Taken Unknown] cholecalciferol (vitamin D3) 50 mcg (2,000 unit) capsule 50 mcg PO DAILY 03/04/22 [History Last Taken Unknown] hydrocodone-acetaminophen 5-325mg 5mg-325mg 1 tab PO Q4H PRN PRN Pain 4 days #20TABLETS 09/30/22 [Rx Last Taken Unknown] Allergy/AdvReac Type Severity Reaction Status Date / Time No Known Allergies Allergy Verified 09/30/22 13:10 Family History Other CVA (cerebral vascular accident) Diabetes Hypertension Surgical History Cholecystectomy planned History of ankle surgery History of appendectomy Social History Smoking Status: Never smoker alcohol intake: never substance use type: does not use what type of physical activity do you participate in: weight training and otherdetails: active lifestyle frequency: daily ROS ROS ED Cardiovascular Cardiovascular: Reports as per HPI and chest pain; Denies abdominal pain Respiratory/Chest Respiratory/Chest: Denies cough or dyspnea Gastrointestinal Gastrointestinal: Denies abdominal pain, nausea or vomiting Musculoskeletal Musculoskeletal: Denies back pain or neck pain Integumentary Reports Abrasions; Denies rash Neurologic Neurologic: Denies headache(s), paresthesias or weakness EXAM Physical Exam Const Vital Signs: 09/30/22 13:10 09/30/22 13:21 Temperature 96.5 F L Temperature Source Temporal Pulse Rate 66 Respiratory Rate 16 Respiratory Effort Normal Non-Labored Respiratory Pattern Normal Blood Pressure 143/80 H Blood Pressure Mean 101 Pulse Ox 97 Oxygen Delivery Method Room Air Positive well nourished and well developed General Appearance ED: well developed and NAD HEENT atraumatic; Negative for tenderness Eyes PERRL and EOMs intact bilaterally Neck full ROM Resp normal respiratory effort and clear to auscultation bilaterally Resp Narrative: Tender left lateral rib cage along the posterior axillary line approximately ribs 6 or 7 are both no crepitance or subcutaneous emphysema or flail. No obvious signs of trauma at the level of the skin. Cardio regular rhythm, S1 normal heart sound and no murmurs Rate: Negative for tachycardic Extremity normal to inspection and full ROM Extremity Narrative: Full range of motion left knee no effusion, no bony tenderness. Ligaments stable with short endpoints on stressing without pain. Neuro oriented x3, CN's II-XII intact bilaterally, moves all extremities, no focal motor deficits, no sensory deficits noted and gait normal Psych mental status grossly normal and thought process normal Skin Skin Narrative: Abrasion lateral left knee no bony tenderness, no other skin injury MDM MDM MDM Narrative Medical decision making narrative: I agree patient's knee injury is minor. We obtained x-rays of the left ribs roland PA of the chest, 5 views total my interpretation show no acute fracture or pneumothorax. Radiology in agreement seen old fractures which I confirmed with the patient probably were there. He is given a [place] here, he took Tylenol and ibuprofen earlier, in addition to a short prescription and close outpatient follow-up and we discussed reasons to return. Radiography Diagnostic Testing: Clinical Impression(s) from Imaging Studies Ribs w/Chest X-Ray 09/30/22 13:30 IMPRESSION: RIBS: Multiple healed left rib fractures. CHEST: Normal x-ray examination of the chest. Electronically Signed: Jon Sutherland MD at 14:12 EDT , Discharge Plan Triage Chief Complaint: Chest Other ED Provider: Sumit Granados Dx/Rx/DC Orders Clinical Impression: Chest wall injury Instructions: ED Rib Contusion or Minor Fracture Prescriptions: New hydrocodone-acetaminophen [hydrocodone-acetaminophen] 5-325 mg tablet 1 tab PO Q4H PRN PRN (Reason: Pain) 4 Days Qty: 20 0RF No Action multivitamin,co-hmdv-yvysroit tablet 1 tab PO DAILY ascorbic acid (vitamin C) 1,000 mg tablet 2 g PO DAILY pzxknip-yrsq-andle-oreg-capryl 100 mg-150 mg- 50 mg-150 mg capsule 1 cap PO DAILY cholecalciferol (vitamin D3) 50 mcg (2,000 unit) capsule 50 mcg PO DAILY zinc 10 mg Tablet 10 mg PO DAILY amlodipine 10 mg tablet 10 mg PO DAILY Qty: 90 3RF hydrochlorothiazide 25 mg tablet 12.5 mg PO DAILY Qty: 90 1RF lisinopril 40 mg tablet 40 mg PO DAILY Qty: 90 3RF Primary Care Provider: Amy Levi Referrals: Amy Levi MD [Primary Care Provider] - 1 Week if not improving Disposition Disposition: Home, Self Care What to do if you have Problems For any increased pain, shortness of breath, bleeding, nausea or vomiting, chestpain, or any unexpected problems, contact your Primary Care Provider. Call [facility] ([phone]) or report to the closest Emergency Room. Call 911 if necessary. 09/30/22 1553 <Electronically signed by Sumit Granados MD> Cosigner Signature (if applicable): CC: Dr. Amy Levi MD ~ Signed [facility] Work Phone: 1(546) 382-714108-30-2021 NotePatient Outreach (NETNAV) JOSE CARVAJAL ([id number]) 1950 M Date Time Provider Department 11/20/20 DAVID THEODORE During your visit today, we recorded the following information about you: David Theodore Population Health Navigator 11/20/2020 9:38 AM Signed POPULATION HEALTH NAVIGATION OUTREACH Action/FYI I left a voice message and a my chart message re: pcp No care everywhere Contact made with patient or family member? NO Pt identified by name and : NO Outreach Outcome/Action Unable to reach patient: Left message [employer] message sent Reason for Outreach Attribution: Provider [...] future healthcare decisions with a power of employment attorney, living will, or advance directives? No. Please bring a copy to your next appointment or email to Referrals: N/A Message Sent to Practice: NO Navigation Signature: David Theodore Population Health Navigator November 20, 2020 9:38 [...] 07/23/2017 Encounter Status:Closed by ARBEN POPULATION HEALTH NAVIGATOR, DAVID Cardona on 11/20/20[facility]08-30-2021 NoteHNO ID: [id number] Author: [facility] Service: ? Author Type: ? Type: Progress Notes Filed: 11/20/2020 9:38 AM Note Text: POPULATION HEALTH NAVIGATION OUTREACH Action/FYI I left a voice message and a my chart message re: pcp No care everywhere Contact made with patient or family member? NO Pt identified by name and : NO Outreach Outcome/Action Unable to reach patient: Left message [employer] message sent Reason for Outreach Attribution: Provider [...] future healthcare decisions with a power of employment attorney, living will, or advance directives? No. Please bring a copy to your next appointment or email to Referrals: N/A Message Sent to Practice: NO Navigation Signature: David Theodore Population Health Navigator November 20, 2020 9:38 [facility] summary Author Sumit Granados [facility] Note Date/Time May 28, 2024 1:31 am [facility] Medical Records Department [address] [place] [address] Emergency Department Summary 05/28/24 MR#: [id number] Acct: [id number] Name: JOSE CARVAJAL Rep #:[id number] : 1950 73 From: Sumit Granados MD PCP: Dr. Amy Levi MD Status:REG ER Location: ED HPI History of Present Illness Chief Complaint: Chest Pain Informant: patient Narrative Narrative: 73-year-old male states he has been having left upper chest discomfort with sometingling in his left arm that has been constant for the past 2 days. He states he thinks it may be related to a doughnut pastry that he ate which is very unusual for him. He states he has a dry mouth, and states that multiple times. He states that he tries to drink at least a gallon of water a day, and he stateshe urinates quite a bit every day because of that and the fact that he is on hydrochlorothiazide. He is not a diabetic that he knows of. He had a checkup with his doctor the other day, and he has some fasting labs for tomorrow morning, but decided to come to have this evaluated tonight. Denies any nausea or vomiting. He states he walks a couple miles a day and it did not bother him when he was walking but when he lies down it seems to be worse. He denies dyspnea, lightheadedness, palpitations, fevers or chills or cough. States he was concerned about his blood pressure, checking it a couple times it was in [id number] and at highest it was in the 150s. [facility] Medical History Uncontrolled hypertension New onset headache Frequent headaches Schwannoma of nerve of chest Irritation of right eye Arthritis Essential hypertension Home Medications ?Medication ?Instructions ?Recorded ?Last Taken ?Type ascorbic acid (vitamin C) 1,000 mg 2 g PO DAILY Unknown History tablet multivitamin,dj-rdab-jsltloun 1 tab PO DAILY 06/01/20 Unknown History (Complete Multivitamin tablet) turmeric 100 mg-ximena 150 1 cap PO DAILY 10/31/20 Unk nown History mg-olive 50 mg-oreg 150 mg-capryl capsule cholecalciferol (vitamin D3) 50 50 mcg PO DAILY Unknown History mcg (2,000 unit) capsule amlodipine 10 mg tablet 10 mg PO DAILY #90 tabs 08/10/1412/09/23 Rx hydrochlorothiazide 25 mg tablet 12.5 mg (1/2 x 25 mg) PO DAILY #90 12/01/23 12/09/23 Rx tabs lisinopril 40 mg tablet 40 mg PO DAILY #90 tabs 11/24 Unknown Rx Allergy/AdvReac Type Severity Reaction Status Date / Time No Known Allergies Allergy Verified 05/27/24 23:39 Family History Other CVA (cerebral vascular accident) Diabetes Hypertension Surgical History History of appendectomy History of ankle surgery Cholecystectomy planned Social History Smoking Status: Never smoker alcohol intake: never substance use type: does not use what type of physical activity do you participate in: weight training and otherdetails: active lifestyle frequency: daily ROS ROS ED Constitutional Constitutional ED: Reports fatigue; Denies chills or fever(s) Eyes Eyes: Denies change in vision or diplopia ENT ENT ED: Denies rhinorrhea or sore throat Cardiovascular Cardiovascular: Reports chest pain; Denies palpitations Respiratory/Chest Respiratory/Chest: Denies cough or dyspnea Gastrointestinal Gastrointestinal: Denies abdominal pain, diarrhea, nausea or vomiting Genitourinary Genitourinary ED: Denies dysuria or hematuria Musculoskeletal Musculoskeletal: Denies back pain or neck pain Integumentary Denies abscess or rash Neurologic Neurologic: Reports paresthesias LUE; Denies headache(s) or weakness EXAM Physical Exam Const Vital Signs: 05/27/24 23:39 05/27/24 23:39 05/28/24 00:11 Temperature 98.7 F Temperature Source Oral Pulse Rate 70 Respiratory Rate 17 Respiratory Effort Normal Non-Labored Blood Pressure 165/86 H Blood Pressure Mean 112 Pulse Ox 98 Oxygen Delivery Method Room Air Room Air 05/28/24 00:39 05/28/24 01:00 Temperature Temperature Source Pulse Rate 62 62 Respiratory Rate 16 13 Respiratory Effort Blood Pressure 148/86 H 143/76 H Blood Pressure Mean 106 98 Pulse Ox 99 99 Oxygen Delivery Method Room Air Room Air Positive well nourished and well developed Constitutional Narrative: Well-appearing conversive in full sentences General Appearance ED: well developed and NAD HEENT Reports moist mucous membranes normocephalic and atraumatic Eyes PERRL and EOMs intact bilaterally Neck full ROM and supple Resp normal respiratory effort and clear to auscultation bilaterally Cardio regular rate, regular rhythm and no murmurs Peripheral Pulses: pulses 2+ throughout GI non-tender and non-distended Auscultation: normoactive bowel sounds Palpation: soft Back/Spine no CVA tenderness General Back: other FROM Extremity normal to inspection General Extremety ED: Negative for edema, pulses abnormal or tenderness General Extremity: Negative for edema or pulses abnormal Neuro oriented x3, CN's II-XII intact bilaterally and no sensory deficits noted Sensorium / Orientation: awake and alert Motor Exam: strength 5/5 throughout Skin no rashes or lesions noted and no wounds Heart Score History: Moderately Suspicious ECG: Normal Age: >/= 65 years Risk Factors: 1 or 2 Risk Factors Troponin: </= Normal Limit Score: 4 MDM MDM MDM Narrative Medical decision making narrative: Patient's EKG is unremarkable, one-view portable chest x-ray is normal on my interpretation, and his basic labs including his blood sugar at 91 and troponin high-sensitivity at 11 are all within normal limits. Furthermore, he was given a GI cocktail and notes resolution of his chest discomfort and arm tingling. His blood pressure initially 165, now 143, he is very concerned about the numbers, I reassured him, this is not a measure of what is going on in his heart, could be due to anxiety about being in the emergency department, and is nonspecific. I advised him to recheck it when he is feeling well. He has better now and I do not think we need another measurement of troponin since he has had discomfort for 2 days. Advised to take Prilosec for 2 weeks, and follow-up with his doctor as an outpatient he is comfortable with that plan. Lab Data Attestation: I reviewed the patient's lab results. Labs: Laboratory Results - last 24 hr 05/27/24 23:46 WBC 6.0 RBC 5.26 Hgb 15.7 Hct 43.0 MCV 81.7 MCH 29.8 MCHC 36.5 H RDW Std Deviation 35.8 RDW Coeff of Gerardo 12.0 Plt Count 177 MPV 9.4 Immature Gran % (Auto) 0.200 Neut % (Auto) 50.8 Lymph % (Auto) 36.3 [place] % (Auto) 9.7 Eos % (Auto) 2.2 Baso % (Auto) 0.8 Absolute Neuts (auto) 3.0 Absolute Lymphs (auto) 2.17 Nucleated RBC % 0 Sodium 137 Potassium 3.5 Chloride 101 Carbon Dioxide 21.6 Anion Gap 14 BUN 12 Creatinine 0.78 Estim Creat Clear Calc 106.73 Est GFR (MDRD) Non-Af 95 BUN/Creatinine Ratio 15.2 Glucose 91 Calcium 9.1 Troponin T High Sens 11 Radiography Diagnostic Testing: Clinical Impression(s) from Imaging Studies Chest X-Ray 05/28/24 00:50 IMPRESSION: No evidence of acute disease. Reading Location: [facility] Rhythm Strip Rhythm Strip: Sinus Rhythm Rate: 68 Ectopy: None EKG Initial EKG: Attestation: I personally reviewed and interpreted this EKG as follows: Interpretation: Sinus Rhythm and No Acute Injury Pattern Comments: Nml axis & intervals; nml EKG Discharge Plan Triage Chief Complaint: Chest Pain ED Provider: Sumit Granados Dx/Rx/DC Orders Clinical Impression: Chest pain, non-cardiac Instructions: ED Chest Pain, Noncardiac Prescriptions: No Action Complete Multivitamin Tablet 1 tab PO DAILY ascorbic acid (vitamin C) 1,000 mg tablet 2 g PO DAILY knyhrudt-gwag-sdvwp-oreg-capry 100 mg-150 mg- 50 mg-150 mg capsule 1 cap PO DAILY cholecalciferol (vitamin D3) 50 mcg (2,000 unit) capsule 50 mcg PO DAILY amlodipine 10 mg tablet 10 mg PO DAILY Qty: 90 3RF hydrochlorothiazide 25 mg tablet 12.5 mg PO DAILY Qty: 90 1RF lisinopril 40 mg tablet 40 mg PO DAILY Qty: 90 3RF Primary Care Provider: Amy Levi Referrals: Amy Levi MD [Primary Care Provider] - 3-5 Days if not improving Activity Restrictions/Additional Instructions: Consider a 2-week course of Prilosec or Prevacid or Nexium Print Language: Turkish Disposition Disposition: Home, Self Care What to do if you have Problems For any increased pain, shortness of breath, bleeding, nausea or vomiting, chestpain, or any unexpected problems, contact your Primary Care Provider. Call [facility] ([phone]) or report to the closest Emergency Room. Call 911 if necessary. 05/28/24 0131 <Electronically signed by Sumit Granados MD> Cosigner Signature (if applicable): CC: Dr. Amy Levi MD ~ Signed [facility] Work Phone: Evaluation noteNo assessment information available [facility] Work Phone: Evaluation note* Diagnosis Onset Date Resolution Status Essential hypertension acute Chronic pain of right ankle chronic [facility] Work Phone: Evaluation note* Diagnosis Onset Date Resolution Status Admit Date Elevated TSH acute November 8:17am Essential hypertension acute Se pt2024 8:17am [facility] Work Phone: Hospital Discharge instructions Additional Instructions Consider a 2-[facility]: Reason for referral (narrative)No reason for referral information availableWood [facility] Work Phone: Summary Purpose Family History No Family History Records Found Relationship Condition Age at Onset Recorded Date/T bernardo Not Specified Diabetes mellitus Unknown Hypertension Unknown Cerebrovascular accident (CVA) Unknown Advance Directives No Advanced Directives Records Found Advance Directive Response Recorded Date/ Time Living Will No September 30, 2022 1:21pm Power of Mail Examiner No September 30 1:21pm Advance Directive Response Recorded Date/ Time Living Will No March 10, 2 023 8:09am Power of Mail Examiner No March 10, 2023 8:09am Advance Directive Response Recorded Date/ Time Living Will Yes December 09, 2023 8:42am Power of Mail Examiner Yes November 8:42am Living Will No May 27, 2024 11:39pm Power of Mail Examiner No May 27 11:39pm Advance Directive Response Recorded Date/ Time Living Will Yes December 09, 2023 9:42am Power of Mail Examiner Yes November 9:42am Living Will No May 28, 2024 12:39am Power of Mail Examiner No May 28 12:39am Chief Complaint and Reason for Visit Chief Complaint RIB INJURY Chief Complaint Annual/Physical E-ORDER Reason for Visit Essential hypertensi on Chronic pain of right ankle Chief Complaint Admit Date 5 M FU May 24, 2024 8:18 am chest pain May 27, 2024 11:3 9pm Reason for Visit Admit Date Elevated TSH May 24, 2024 8:18 am Essential hypertension May 24, 2024 8 :18am Arthritis May 24, 2024 8:18 am Chief Complaint Admit Date 6 M FU November 29, 2024 8:17am Reason for Visit Admit Date Elevated TSH November 29, 2024 8:17am Essential hypertension November 29 8:17am Additional Source Comments (unrecognized sect ion and content) No Status Records FoundNo Status Records FoundNo Status Records FoundNo Status Records FoundNo Status Records Found INFORMATION SOURCE (unrecogn ized section and content) DATE CREATED AUTHOR 09/11/2017 [facility] DATE CREATED AUTHOR AUTHOR'S ORGANIZ ATION 02/14/2020 [facility] DATE CREATED AUTHOR AUTHOR'S ORGANIZ ATION 03/20/2021 [facility] DATE CREATED AUTHOR AUTHOR'S ORGANIZ ATION 05/04/2021 [facility] DATE CREATED AUTHOR AUTHOR'S ORGANIZ ATION 02/03/2025 [facility] Care Teams (unrecognized sec tion and content) Team Status: Active Member Role Status Dates Dr. Amy Levi MD Family Provider Active Dr. Amy Levi MD Primary Care Provider Active Team Status: Inactive Member Role Status Dates Dr. Amy Levi MD Primary Care Provider Active Dr. Sumit Granados MD Emergency Provider Active Team Status: Inactive Member Role Status Dates Dr. Amy Levi MD Primary Care Provider, [facility] Provider Active Team Status: Active Member Role Status Dates Dr. Amy Levi MD Primary Care Provider Active Team Status: Inactive Member Role Status Dates Dr. Amy Levi MD Primary Care Provider Active Start: May 24, 2024 End: May 24, 2024 Dr. Amy Levi MD Attending Provider Active Start: May 24, 2024 End: May 24, 2024 Team Status: Inactive Member Role Status Dates Dr. Amy Levi MD Primary Care Provider Active Start: May 27, 2024 End: May 28, 2024 Dr. Sumit Granados MD Emergency Provider Active Start: May 27, 2024 End: May 28, 2024 Team Status: Inactive Member Role Status Dates Dr. Amy Levi MD Primary Care Provider Active Start: May 27, 2024 End: May 28, 2024 Dr. Sumit Granados MD Attending Provider Active Start: May 27, 2024 End: May 28, 2024 Dr. Sumit Granados MD Emergency Provider Active Start: May 27, 2024 End: May 28, 2024 Team Status: Inactive Member Role Status Dates Dr. Amy Levi MD Primary Care Provider Active Start: May 28, 2024 End: May 28, 2024 Dr. Amy Levi MD Attending Provider Active Start: May 28, 2024 End: May 28, 2024 Dr. Amy Levi MD Referring Provider Active Start: May 28, 2024 End: May 28, 2024 Team Status: Active Member Role/Relationship Status Dates Dr. Amy Levi MD Primary Care Provider Active Team Status: Inactive Member Role/Relationship Status Dates Dr. Amy Levi MD Primary Care Provider Active Start: November 29, 2024 End: November 29, 2024 Dr. Amy Levi MD Attending Provider Active Start: November 29, 2024 End: November 29, 2024 Team Status: Active Member Role/Relationship Status Dates Dr. Amy Levi MD Primary care physician Active Team Status: Inactive Member Role/Relationship Status Dates Dr. Amy Levi MD Primary care physician Active Start: November 29, 2024 End: November 29, 2024 Dr. Amy Levi MD Attending physician Active Start: November 29, 2024 End: November 29, 2024 Team Status: Inactive Member Role/Relationship Status Dates Dr. Amy Levi MD Primary care physician Active Start: December 02, 2024 End: December 02, 2024 Dr. Amy Levi MD Attending physician Active Start: December 02, 2024 End: December 02, 2024 Dr. Amy Levi MD Referring Provider Active Start: December 02, 2024 End: December 02, 2024 Goals (unrecognized section and content) Goals may be documented in a n alternate sectionGoals may be documented in an alternate sectionGoals may be documented in an alternate sectionGoals may be documented in an alternate sectionGoals may be documented in an alternate sectionGoals may be documented in an alternate section FOR RECORDS PERTAINING TO PATIENTS WHO ARE [...] BE BASED ON THE PRIMARY CLINICAL RECORDS. [employer] provides no warranty or guarantee of the accuracy or completeness of information in this document.
== END 2025-02-24 09:39 | disposition home or self-care (01) ==
PROVIDERS: Emergency Provider Emergency Medicine; PCP Internal Medicine; Visit Provider Emergency Medicine
DX: I10 Essential (primary) hypertension (principal); Z79.899 Other long term (current) drug therapy
CPT/HCPCS: 99282

== ENCOUNTER → 2025-03-11 | Outpatient (CLI) | payer MEDICARE, SELFPAY ==
[2025-03-11 11:06] LABS: Anion Gap 10 (5-15); BUN 8 mg/dL (4-19); BUN/Creat Ratio 8.8 RATIO (10-20); Calcium,Total 8.9 mg/dL (7.6-11.0); Carbon Dioxide 25.0 mmol/L (21.0-32.0); Chloride 103 mmol/L (98-108); Glucose 102 mg/dL (70-99); Magnesium 2.2 mg/dL (1.5-2.2); Potassium 4.0 mmol/L (3.3-5.1)
== END | disposition home or self-care (01) ==
LOC: MTLAB 08:50
PROVIDERS: PCP Internal Medicine; Referring Provider Internal Medicine; Visit Provider Internal Medicine
DX: I10 Essential (primary) hypertension (principal)
CPT/HCPCS: 36415; 80048; 83735